=== PATIENT | female | born 1980 | race African-American/Black ===

== ENCOUNTER 2018-03-18 17:02 | Emergency (ER) | payer SELFPAY ==
[~2018-03-18] VITALS: Ht 170.2 cm; Wt 106.6 kg
[2018-03-18] MEDS ORDERED: IBUPROFEN 800 MG (MOTRIN) TAB PO ONE (17:15)
--- NOTE | 2018-03-18 17:18 | ED Fall/Injury ---
General Chief Complaint: Trauma-Non Activation Stated Complaint: FALL Source: patient, EMS Exam Limitations: no limitations History of Present Illness Date Seen by Provider: Mar 18, 2018 Time Seen by Provider: 17:04 Initial Comments Patient presents to ER by EMS with chief complaint that just prior to arrival she was carrying a broken TV set out of the house and she stepped on the cord and tripped and fell down on her left arm and is now having a lot of pain in her left shoulder and difficulty moving it. EMS reports they did not give her anything and she is not had anything for her pain yet. She has good range of motion of her wrist and elbow but not her shoulder. No previous injury to her shoulder. 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 She does not follow with a primary care doctor. Allergies and Home Medications Allergies Coded Allergies: Penicillins (Verified Allergy, Unknown, lip swelling, 03/18/18) Patient Home Medication List Home Medication List Reviewed: Yes Review of Systems Constitutional: No chills, No diaphoresis Eyes: Denies Blindness, Denies Blurred Vision Ears, Nose, Mouth, Throat: denies ear pain, denies ear discharge Respiratory: No cough, No short of breath Cardiovascular: No chest pain, No edema Gastrointestinal: No abdominal pain, No constipation, No diarrhea Past Uyzujdb-Mhzruj-Qswyke Hx Patient Social History Alcohol Use: Denies Use Recreational Drug Use: No Smoking Status: Never a Smoker Physical Exam Vital Signs Vital Signs - First Documented 03/18/18 17:02 Temp 98.7 Pulse 107 Resp 20 B/P (MAP) 148/110 (123) Pulse Ox 100 O2 Delivery Room Air Capillary Refill : Height, Weight, BMI Height: '" Weight: lbs. oz. kg; BMI Method: General Appearance: WD/WN, no apparent distress HEENT: PERRL/EOMI, pharynx normal Neck: non-tender, normal inspection Cardiovascular: normal peripheral pulses, regular rate, rhythm Respiratory: chest non-tender, lungs clear, normal breath sounds, no respiratory distress, no accessory muscle use Peripheral Pulses: 2+ Radial Pulses (R), 2+ Radial Pulses (L) Gastrointestinal: normal bowel sounds, non tender, soft Progress/Results/Core Measures Results/Orders My Orders Orders - RONALD NEWTON Shoulder, Left, 3 Views (03/18/18 17:07) Ibuprofen Tablet (Motrin Tablet) (03/18/18 17:15) Medications Given in ED Current Medications Medications Dose Ordered Sig/Mir Route Start Time Stop Time Status Last Admin Dose Admin Ibuprofen 800 mg ONCE ONCE PO 03/18/18 17:15 03/18/18 17:16 DC 03/18/18 17:23 800 MG Vital Signs/I&O 03/18/18 17:02 Temp 98.7 Pulse 107 Resp 20 B/P (MAP) 148/110 (123) Pulse Ox 100 O2 Delivery Room Air Progress Progress Note : Time: 17:24 Progress Note Offered her something for pain and she has accepted ibuprofen. Return to get some x-rays of her shoulder and evaluate her clavicle. Diagnostic Imaging Diagonstic Imaging: Xray Plain Films/CT/US/NM/MRI: other (left shoulder) Comments NAME: BERTO MCFARLAND MED REC#: [id number] PT STATUS: REG ER : 1980 PHYSICIAN: RONALD NEWTON MD ADMIT DATE: 03/18/18/ER Draft Date of Exam:03/18/18 SHOULDER, LEFT, 3 VIEWS INDICATION: Left shoulder pain after injury. COMPARISON: None available. TECHNIQUE: Three views of left shoulder. FINDINGS: No acute fracture or traumatic malalignment. Subacromial space is well-maintained. An os acromiale accounts for the irregularity of the distal acromion. IMPRESSION: 1. No acute fracture or traumatic malalignment of the left shoulder. 2. Normal variant os acromiale likely accounts for irregularity of the distal acromion. Dictated on workstation # [id number] Dict: 03/18/18 1745 Trans: 03/18/18 1748 [id number] Interpreted by: DESIRAE MORFIN MD Electronically signed by: Reviewed: Reviewed by Me Departure Impression Primary Impression: Sprain and strain of unspecified site of shoulder and upper arm Additional Impression: Fall Qualified Codes: W19.XXXA - Unspecified fall, initial encounter Disposition: 01 HOME, SELF-CARE Condition: Stable Departure-Patient Inst. Decision time for Depature: 17:53 Referrals: UNKNOWN (PCP) Primary Care Physician Patient Instructions: How to Use a Shoulder Sling Add. Discharge Instructions: Wear the sling as needed for the next 7 days. Take it out of the sling several times a day and do some range of motion exercises using your other hand. Use Tylenol 1000 mg as well as ibuprofen 800 mg every 8 hours as needed for pain. For the first 3 days apply ice for 20 minutes every 4 hours. You can also use creams such as icy hot or Biofreeze and heat. If it's not improving in 2-4 weeks she can follow-up with your primary doctor for reevaluation. All discharge instructions reviewed with patient and/or family. Voiced understanding. Work/School Note: Work Release Form Date Seen in the Emergency Department: Mar 18, 2018 Return to Work: Mar 19, 2018 Restrictions: No Restrictions Other Restrictions Listed Below: Sling for 7 days. RONALD NEWTON Mar 18, 2018 17:18
--- OUTSIDE RECORDS SUMMARY | 2018-03-18 17:25 | XMS REPORT ---
Author Author KRISHNAARSALAN VALENTINE Organization [facility] Address [address] [place] [address] Care Team Providers Care Reroller Hand Name Role Phone ARSALAN KELLER Unavailable PROBLEMS Type Condition ICD9-CM Code [id number] Code Onset Dates Condition Status SNOMED Code Problem Cannabis dependence F12.20 Active 34156455 Problem Methamphetamine use disorder, moderate, 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 Active 329076730 Problem Moderate persistent asthma with acute exacerbation J45.41 Active 766465488641321 Problem Mild intermittent asthma without complication J45.20 Active 931973969 ALLERGIES No Information ENCOUNTERS Encounter Location Date Diagnosis [facility] [address] [address] Sep, [facility] [address] [place] [address] Sep, Methamphetamine use disorder, moderate, 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 and Cannabis dependence F12.20 [facility] [address] [address] Sep, Moderate persistent asthma with acute exacerbation J45.41 and BMI 40.0-44.9, adult Z68.41 [facility] [id number] [place] [phone] Aug, [facility] [id number] [place] [address] [id number] Mar, Moderate persistent asthma with acute exacerbation J45.41 ; Cough R05 and Fever and chills R50.9 [facility] [id number] [place] [address] [id number] Feb, Moderate persistent asthma with acute exacerbation J45.41 [facility] [id number] [place] [address] [id number] Jan, Cough R05 ; Fever, unspecified fever cause R50.9 ; Tobacco abuse Z72.0 ; Tobacco abuse counseling Z71.6 and Acute diffuse otitis externa of left ear H60.[address] [id number] December, [address] [id number] December, Moderate persistent asthma with acute exacerbation J45.41 ; Cough R05 ; Tobacco abuse Z72.0 and Tobacco abuse counseling Z71.[address] [id number] Oct, Atypical pneumonia J18.9 ; Viral gastroenteritis A08.4 ; Diarrhea of presumed infectious origin A09 ; Dark stools R19.5 and Bronchitis J40 [address] [id number] Sep, Atypical pneumonia J18.9 ; Viral gastroenteritis A08.4 ; Diarrhea of presumed infectious origin A09 and Dark stools R19.[address] [id number] Sep, Atypical pneumonia J18.9 and Vomiting, unspecified R11.10 [facility] [address] [place] [address] [id number] [place] [id number] Sep, Bronchitis J40 [address] [id number] Sep, Bronchitis J40 ; Community acquired pneumonia J18.9 and Left flank tenderness R10.[id number] [place] [address] [id number] Sep, Bronchitis J40 and Community acquired pneumonia J18.[address] [id number] Sep, Acute diffuse otitis externa of left ear H60.312 ; Bronchitis J40 and Community acquired pneumonia J18.9 [facility] [address] [facility] [id number] [place] [address] [id number] Sep, Bronchitis J40 [address] [id number] 13 Sep, 2016 Bronchitis J40 [facility] [address] [facility] [id number] [place] [id number] Sep, 2016 Upper respiratory tract infection, unspecified type J06.9 and Cough R05 [facility] [address] [facility] [id number] [place] [id number] Jul, Mild intermittent asthma without complication J45.20 ; Encounter for immunization Z23 ; Bilateral carpal tunnel syndrome G56.03 ; Medial epicondylitis of left elbow M77.02 and Medial epicondylitis, right elbow M77.01 IMMUNIZATIONS No Known Immunizations SOCIAL HISTORY Never Assessed REASON FOR VISIT Assessment PLAN OF CARE Activity Details Follow Up 1 Week Reason:SUBABFU VITAL SIGNS MEDICATIONS Unknown Medications RESULTS No Results PROCEDURES Procedure Date Ordered Result Body Site ALCOHOL AND/OR DRUG ASSESSMENT Sep 12, 2017 INSTRUCTIONS MEDICATIONS ADMINISTERED No Known Medications MEDICAL (GENERAL) HISTORY Type Description Date Medical History asthma Surgical History cholecystectomy Surgical History hiatal hernia repair Surgical History umbilical hernia repair Hospitalization History Surgery(s) only Hospitalization History pneumonia
--- OUTSIDE RECORDS SUMMARY | 2018-03-18 17:25 | XMS REPORT ---
Author Author MISSY VALVERDE Organization [facility] Address [address] [place] [address] Care Team Providers Care Prepress Technician Name Role Phone MISSY VALVERDE Unavailable PROBLEMS Type Condition ICD9-CM Code [id number] Code Onset Dates Condition Status SNOMED Code Problem Cannabis dependence F12.20 Active 01667090 Problem Methamphetamine use disorder, moderate, 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 Active 371164031 Problem Moderate persistent asthma with acute exacerbation J45.41 Active 239534206438869 Problem Mild intermittent asthma without complication J45.20 Active 120376261 ALLERGIES No Information ENCOUNTERS Encounter Location Date Diagnosis [facility] [address] [address] Sep, [facility] [address] [place] [address] Sep, Methamphetamine use disorder, moderate, 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 and Cannabis dependence F12.20 [facility] [address] [address] Sep, Moderate persistent asthma with acute exacerbation J45.41 and BMI 40.0-44.9, adult Z68.41 [facility] [address] [address] Aug, [address] [id number] Mar, Moderate persistent asthma with acute exacerbation J45.41 ; Cough R05 and Fever and chills R50.9 [facility] [address] [id number] Feb, Moderate persistent asthma with acute exacerbation J45.41 [facility] [id number] [place] [address] [id number] Jan, Cough R05 ; Fever, unspecified fever cause R50.9 ; Tobacco abuse Z72.0 ; Tobacco abuse counseling Z71.6 and Acute diffuse otitis externa of left ear H60.[address] [id number] December, [address] [id number] December, Moderate persistent asthma with acute exacerbation J45.41 ; Cough R05 ; Tobacco abuse Z72.0 and Tobacco abuse counseling Z71.[address] [id number] Oct, Atypical pneumonia J18.9 ; Viral gastroenteritis A08.4 ; Diarrhea of presumed infectious origin A09 ; Dark stools R19.5 and Bronchitis J40 [address] [id number] Sep, Atypical pneumonia J18.9 ; Viral gastroenteritis A08.4 ; Diarrhea of presumed infectious origin A09 and Dark stools R19.[address] [id number] Sep, Atypical pneumonia J18.9 and Vomiting, unspecified R11.10 [facility] [address] [place] [address] [id number] [place] [address] [id number] Sep, Bronchitis J40 [address] [id number] Sep, Bronchitis J40 ; Community acquired pneumonia J18.9 and Left flank tenderness R10.[id number] [place] [address] [id number] Sep, Bronchitis J40 and Community acquired pneumonia J18.9 [address] [id number] [place] [address] [id number] Sep, Acute diffuse otitis externa of left ear H60.312 ; Bronchitis J40 and Community acquired pneumonia J18.9 [facility] [address] [facility] [id number] [place] [address] [id number] Sep, Bronchitis J40 [address] [id number] Sep, Bronchitis J40 [facility] [address] [facility] [id number] [place] [id number] Sep, Upper respiratory tract infection, unspecified type J06.9 and Cough R05 [facility] [address] [facility] [id number] [place] [id number] Jul, Mild intermittent asthma without complication J45.20 ; Encounter for immunization Z23 ; Bilateral carpal tunnel syndrome G56.03 ; Medial epicondylitis of left elbow M77.02 and Medial epicondylitis, right elbow M77.01 IMMUNIZATIONS No Known Immunizations SOCIAL HISTORY Never Assessed REASON FOR VISIT ATS-Brief PLAN OF CARE VITAL SIGNS MEDICATIONS Unknown Medications RESULTS No Results PROCEDURES Procedure Date Ordered Result Body Site Alcohol and/or drug services Sep 02, 2017 INSTRUCTIONS MEDICATIONS ADMINISTERED No Known Medications MEDICAL (GENERAL) HISTORY Type Description Date Medical History asthma Surgical History cholecystectomy Surgical History hiatal hernia repair Surgical History umbilical hernia repair Hospitalization History Surgery(s) only Hospitalization History pneumonia
--- OUTSIDE RECORDS SUMMARY | 2018-03-18 17:25 | XMS REPORT ---
Author Author LILLIE GAYTAN Organization [facility] Address [address] [place] [address] Care Team Providers Care Informatica Architect Name Role Phone LILLIE GAYTAN Unavailable PROBLEMS Type Condition ICD9-CM Code OBM67-LU Code Onset Dates Condition Status SNOMED Code Problem Moderate persistent asthma with acute exacerbation J45.41 Active 069474032821049 Problem Mild intermittent asthma without complication J45.20 Active 803844319 ALLERGIES No Information SOCIAL HISTORY Never Assessed PLAN OF CARE VITAL SIGNS MEDICATIONS No Known Medications RESULTS No Results PROCEDURES No Known procedures IMMUNIZATIONS No Known Immunizations MEDICAL (GENERAL) HISTORY Type Description Date Medical History asthma Surgical History cholecystectomy Surgical History hiatal hernia repair Surgical History umbilical hernia repair Hospitalization History Surgery(s) only Hospitalization History pneumonia
--- OUTSIDE RECORDS SUMMARY | 2018-03-18 17:25 | XMS REPORT ---
Author Author LOBO KIM [facility] Address [address] [place] [address] Care Team Providers Care Sports Marketer Name Role Phone LOBO KIM Unavailable PROBLEMS Type Condition ICD9-CM Code JAN20-BI Code Onset Dates Condition Status SNOMED Code Problem Moderate persistent asthma with acute exacerbation J45.41 Active 589188141938952 Problem Mild intermittent asthma without complication J45.20 Active 107235902 ALLERGIES No Information SOCIAL HISTORY Never Assessed PLAN OF CARE VITAL SIGNS MEDICATIONS No Known Medications RESULTS Name Result Date Reference Range Xray : Chest (IN HOUSE) 2016-09-16 PROCEDURES Procedure Date Ordered Result Body Site CHEST X-RAY Sep 16, 2016 IMMUNIZATIONS No Known Immunizations MEDICAL (GENERAL) HISTORY Type Description Date Medical History asthma Surgical History cholecystectomy Surgical History hiatal hernia repair Surgical History umbilical hernia repair Hospitalization History Surgery(s) only Hospitalization History pneumonia
--- OUTSIDE RECORDS SUMMARY | 2018-03-18 17:25 | XMS REPORT ---
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 Active 675436058 Problem Moderate persistent asthma with acute exacerbation J45.41 Active 299817372780404 Problem Mild intermittent asthma without complication J45.20 Active 075486738 ALLERGIES Substance Reaction Event Type Date Status Penicillin V Potassium anaphylaxis Drug Allergy Mar, Active ENCOUNTERS Encounter Location Date Diagnosis [facility] [address] [address] Sep, [facility] [address] [place] [address] Sep, Methamphetamine use disorder, moderate, 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 and Cannabis dependence F12.20 [facility] [id number] [place] [address] Sep, Moderate persistent asthma with acute exacerbation J45.41 and BMI 40.0-44.9, adult Z68.41 [facility] [id number] [place] [address] Aug, [facility] [id number] [place] [id number] Mar, Moderate persistent asthma with acute exacerbation J45.41 ; Cough R05 and Fever and chills R50.9 [facility] [id number] [place] [address] [id number] Feb, Moderate persistent asthma with acute exacerbation J45.41 [facility] [address] [id number] Jan, Cough R05 ; Fever, unspecified fever cause R50.9 ; Tobacco abuse Z72.0 ; Tobacco abuse counseling Z71.6 and Acute diffuse otitis externa of left ear H60.312 [id number] [place] [id number] December, [address] [id number] December, Moderate persistent asthma with acute exacerbation J45.41 ; Cough R05 ; Tobacco abuse Z72.0 and Tobacco abuse counseling Z71.[address] [id number] Oct, Atypical pneumonia J18.9 ; Viral gastroenteritis A08.4 ; Diarrhea of presumed infectious origin A09 ; Dark stools R19.5 and Bronchitis J40 [address] [id number] Sep, Atypical pneumonia J18.9 ; Viral gastroenteritis A08.4 ; Diarrhea of presumed infectious origin A09 and Dark stools R19.5 [id number] [place] [address] [id number] Sep, Atypical pneumonia J18.9 and Vomiting, unspecified R11.[address] [id number] [id number] Sep, Bronchitis J40 [id number] [place] [address] [id number] Sep, Bronchitis J40 ; Community acquired pneumonia J18.9 and Left flank tenderness R10.8[id number] [place] [address] [id number] Sep, Bronchitis J40 and Community acquired pneumonia J18.9 [place] [id number] [place] [address] [id number] Sep, Acute diffuse otitis externa of left ear H60.312 ; Bronchitis J40 and Community acquired pneumonia J18.[id number] [place] [id number] Sep, Bronchitis J40 [facility] [address] [facility] [id number] [place] [id number] Sep, Bronchitis J40 [facility] [address] [facility] [id number] [id number] Sep, Upper respiratory tract infection, unspecified type J06.9 and Cough R05 [facility] [address] [facility] [id number] [id number] Jul, Mild intermittent asthma without complication J45.20 ; Encounter for immunization Z23 ; Bilateral carpal tunnel syndrome G56.03 ; Medial epicondylitis of left elbow M77.02 and Medial epicondylitis, right elbow M77.01 IMMUNIZATIONS Vaccine Route Administration Date Status ROCEPHIN 1 GM (IM) IM Intramuscular Mar 28, 2017 Administered SOLUMEDROL (UP TO 125 MG) IM Intramuscular Mar 28, 2017 Administered SOCIAL HISTORY Never Assessed REASON FOR VISIT has bad cough again, has not had CXR or PFT done. States she has been out of town and in group home. [facility] PLAN OF CARE Activity Details Follow Up if not improving in clinic or with PCP Reason: VITAL SIGNS Height 67 in 2017-03-28 Temperature 97.2 degrees Fahrenheit 2017-03-28 Heart Rate 112 bpm 2017-03-28 Respiratory Rate 20 2017-03-28 Blood pressure systolic 122 mmHg 2017-03-28 Blood pressure diastolic 80 mmHg 2017-03-28 MEDICATIONS Medication Instructions Dosage Frequency Start Date End Date Duration Status Advair Diskus 250-50 MCG/DOSE Inhalation Twice a day 1 puff 12h Active Singulair 10 mg Orally Once a day 1 tablet in the evening 24h Active Albuterol Sulfate HFA 108 (90 Base) MCG/ACT Inhalation every 4 hrs 2 puffs as needed 4h Active Symbicort 160-4.5 MCG/ACT Inhalation Twice a day 2 puffs 12h Mar, Active Spiriva Respimat 2.5 MCG/ACT Inhalation Once a day 2 puffs 24h Mar, Active Azithromycin 250 MG Orally Once a day 2 tablets on the first day, then 1 tablet daily for 4 days 24h Mar, Mar, 5 day(s) Active Cheratussin AC 100-10 MG/5ML Orally every 4-6 hrs as needed for cough 10 ml 07 days Not-Taking PredniSONE 10 mg Orally Once a day Day 1- take 6 tablets, Day2- 5 tablets, Day3- 4 tablets, Day4- 3 tablets, Day5- 2 tablets, Day6- 1 tablet 24h Mar, Mar, 6 days Active Promethazine HCl 25 MG Orally every 12 hrs for nausea 1 tablet as needed Not-Taking Diclofenac Sodium 50 mg Orally Three times a day 1 tablet with food or milk 8h Jul, Not-Taking Tessalon 100 mg Orally Three times a day 1 capsule 8h Mar,Apr 30 day(s) Active Albuterol Sulfate (2.5 MG/3ML) 0.083% Inhalation every 4 hours prn 3 ml Active RESULTS No Results PROCEDURES Procedure Date Ordered Result Body Site SOLUMEDROL (UP TO 125 MG) Mar 28, 2017 THER/PROPH/DIAG INJ, SC/IM Mar 28, 2017 ROCEPHIN 1 GM (IM) Mar 28, 2017 INSTRUCTIONS MEDICATIONS ADMINISTERED No Known Medications MEDICAL (GENERAL) HISTORY Type Description Date Medical History asthma Surgical History cholecystectomy Surgical History hiatal hernia repair Surgical History umbilical hernia repair Hospitalization History Surgery(s) only Hospitalization History pneumonia
--- OUTSIDE RECORDS SUMMARY | 2018-03-18 17:25 | XMS REPORT ---
Author Author LILLIE GAYTAN Organization [facility] Address [address] [place] [address] Care Team Providers Care Blow Pit Helper Name Role Phone LILLIE GAYTAN Unavailable PROBLEMS Type Condition ICD9-CM Code YQO28-PT Code Onset Dates Condition Status SNOMED Code Problem Moderate persistent asthma with acute exacerbation J45.41 Active 071274627945056 Problem Mild intermittent asthma without complication J45.20 Active 967701344 ALLERGIES Substance Reaction Event Type Date Status Penicillin V Potassium anaphylaxis Drug Allergy Sep, Active SOCIAL HISTORY Never Assessed PLAN OF CARE Activity Details Follow Up friday Reason:bronchitis VITAL SIGNS Height 67 in 2016-09-23 Weight 264.8 lbs 2016-09-23 Temperature 98.5 degrees Fahrenheit 2016-09-23 Heart Rate 96 bpm 2016-09-23 Respiratory Rate 22 2016-09-23 Oximetry 98 % 2016-09-23 BMI 41.47 kg/m2 2016-09-23 Blood pressure systolic 130 mmHg 2016-09-23 Blood pressure diastolic 96 mmHg 2016-09-23 MEDICATIONS Medication Instructions Dosage Frequency Start Date End Date Duration Status Albuterol Sulfate HFA 108 (90 Base) MCG/ACT Inhalation every 4 hrs 2 puffs as needed 4h Active Advair Diskus 250-50 MCG/DOSE Inhalation Twice a day 1 puff 12h Active Singulair 10 mg Orally Once a day 1 tablet in the evening 24h Active Cortisporin 3.5-07879-6 Otic Three times a day 4 drops into left ear 8h Sep, 10 days Active Albuterol Sulfate (2.5 MG/3ML) 0.083% Inhalation every 4 hours prn 3 ml 0 days Active PredniSONE 5 MG (21) Orally Once a day Take 6 pills day one at the same time reduce by one tablet daily the as directed 24h Sep, Active Cheratussin AC 100-10 MG/5ML Orally every 4-6 hrs as needed for cough 10 ml 27 Sep, 2016 07 days Active Levaquin 750 MG Orally Once a day 1 tablet 24h 05 days Active Diclofenac Sodium 50 mg Orally Three times a day 1 tablet with food or milk 8h Jul, Active RESULTS No Results PROCEDURES Procedure Date Ordered Result Body Site MEASURE BLOOD OXYGEN LEVEL Sep 23, 2016 SOLUMEDROL (UP TO 125 MG) Sep 23, 2016 THER/PROPH/DIAG INJ, SC/IM Sep 23, 2016 IMMUNIZATIONS Vaccine Route Administration Date Status SOLUMEDROL (UP TO 125 MG) IM Intramuscular Sep 23, 2016 Administered MEDICAL (GENERAL) HISTORY Type Description Date Medical History asthma Surgical History cholecystectomy Surgical History hiatal hernia repair Surgical History umbilical hernia repair Hospitalization History Surgery(s) only Hospitalization History pneumonia
--- OUTSIDE RECORDS SUMMARY | 2018-03-18 17:25 | XMS REPORT ---
Author Author MEE RADFORD Organization [facility] Address [address] [place] [address] Care Team Providers Care Hadoop Administrator Name Role Phone MALINA MEE Unavailable PROBLEMS Type Condition ICD9-CM Code RWL94-AE Code Onset Dates Condition Status SNOMED Code Problem Cannabis dependence F12.20 Active 37667414 Problem Methamphetamine use disorder, moderate, 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 Active 343063559 Problem Moderate persistent asthma with acute exacerbation J45.41 Active 725495168840439 Problem Mild intermittent asthma without complication J45.20 Active 130856534 ALLERGIES Substance Reaction Event Type Date Status Penicillin V Potassium anaphylaxis Drug Allergy Sep, Active ENCOUNTERS Encounter Location Date Diagnosis [facility] [id number] [place] [phone] Sep, [facility] [address] [place] [address] Sep, Methamphetamine use disorder, moderate, 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 and Cannabis dependence F12.20 [facility] [id number] [place] [address] Sep, Moderate persistent asthma with acute exacerbation J45.41 and BMI 40.0-44.9, adult Z68.41 [facility] [id number] [place] [phone] Aug, [facility] [id number] [place] [id number] Mar, Moderate persistent asthma with acute exacerbation J45.41 ; Cough R05 and Fever and chills R50.9 [facility] [id number] [place] [id number] Feb, Moderate persistent asthma with acute exacerbation J45.41 [facility] [id number] [place] [address] [id number] Jan, Cough R05 ; Fever, unspecified fever cause R50.9 ; Tobacco abuse Z72.0 ; Tobacco abuse counseling Z71.6 and Acute diffuse otitis externa of left ear H60.312 [id number] [place] [id number] December, [address] [id number] December, Moderate persistent asthma with acute exacerbation J45.41 ; Cough R05 ; Tobacco abuse Z72.0 and Tobacco abuse counseling Z71.6 [id number] [place] [address] [id number] Oct, Atypical pneumonia J18.9 ; Viral gastroenteritis A08.4 ; Diarrhea of presumed infectious origin A09 ; Dark stools R19.5 and Bronchitis J40 [id number] [place] [address] [id number] Sep, Atypical pneumonia J18.9 ; Viral gastroenteritis A08.4 ; Diarrhea of presumed infectious origin A09 and Dark stools R19.5 [id number] [place] [address] [id number] Sep, Atypical pneumonia J18.9 and Vomiting, unspecified R11.[id number] [place] [address] [id number] Sep, Bronchitis J40 [id number] [place] [address] [id number] Sep, Bronchitis J40 ; Community acquired pneumonia J18.9 and Left flank tenderness R10.819 [id number] [place] [address] [id number] Sep, Bronchitis J40 and Community acquired pneumonia J18.[address] [id number] Sep, Acute diffuse otitis externa of left ear H60.312 ; Bronchitis J40 and Community acquired pneumonia J18.[id number] [place] [address] [id number] Sep, Bronchitis J40 [facility] [address] [facility] [id number] [place] [id number] 13 Sep, 2016 Bronchitis J40 [facility] [address] [facility] [id number] [id number] Sep, Upper respiratory tract infection, unspecified type J06.9 and Cough R05 [facility] [address] [facility] [id number] [id number] Jul, Mild intermittent asthma without complication J45.20 ; Encounter for immunization Z23 ; Bilateral carpal tunnel syndrome G56.03 ; Medial epicondylitis of left elbow M77.02 and Medial epicondylitis, right elbow M77.01 IMMUNIZATIONS Vaccine Route Administration Date Status DEXAMETHASONE 4MG/ML (PER 1 MG) IM Intramuscular Sep 04, 2017 Administered DEPO MEDROL 40 MG/ML IM Intramuscular Sep 04, 2017 Administered SOCIAL HISTORY Never Assessed REASON FOR VISIT Cough, lungs hurt, sore throat started a few days ago JStrasserRN PLAN OF CARE Activity Details Follow Up prn Reason: VITAL SIGNS Height 67 in 2017-09-04 Weight 260.4 lbs 2017-09-04 Temperature 97.9 degrees Fahrenheit 2017-09-04 Heart Rate 100 bpm 2017-09-04 Respiratory Rate 22 2017-09-04 Oximetry 97 % 2017-09-04 BMI 40.78 kg/m2 2017-09-04 Blood pressure systolic 124 mmHg 2017-09-04 Blood pressure diastolic 80 mmHg 2017-09-04 MEDICATIONS Medication Instructions Dosage Frequency Start Date End Date Duration Status CompAir Nebulizer - as directed Sep, Active Albuterol Sulfate (2.5 MG/3ML) 0.083% Inhalation every 6 hrs 3 ml as needed 6h Sep, 5 days Active Singulair 10 mg Orally Once a day 1 tablet in the evening 24h Active Symbicort 160-4.5 MCG/ACT Inhalation Twice a day 2 puffs 12h Mar, Active Advair Diskus 250-50 MCG/DOSE Inhalation Twice a day 1 puff 12h Active Albuterol Sulfate HFA 108 (90 Base) MCG/ACT Inhalation every 4 hrs 2 puffs as needed 4h Active Promethazine HCl 25 MG Orally every 12 hrs for nausea 1 tablet as needed Not-Taking Cheratussin AC 100-10 MG/5ML Orally every 4-6 hrs as needed for cough 10 ml 07 days Not-Taking Albuterol Sulfate (2.5 MG/3ML) 0.083% Inhalation every 4 hours prn 3 ml Active Diclofenac Sodium 50 mg Orally Three times a day 1 tablet with food or milk 8h Jul, Not-Taking Spiriva Respimat 2.5 MCG/ACT Inhalation Once a day 2 puffs 24h Mar, Active RESULTS No Results PROCEDURES Procedure Date Ordered Result Body Site MEASURE BLOOD OXYGEN LEVEL Sep 04, 2017 THER/PROPH/DIAG INJ, SC/IM Sep 04, 2017 DEPO MEDROL 40 MG/ML Sep 04, 2017 DEXAMETHASONE 4MG/ML (PER 1 MG) Sep 04, 2017 INSTRUCTIONS MEDICATIONS ADMINISTERED No Known Medications MEDICAL (GENERAL) HISTORY Type Description Date Medical History asthma Surgical History cholecystectomy Surgical History hiatal hernia repair Surgical History umbilical hernia repair Hospitalization History Surgery(s) only Hospitalization History pneumonia
--- OUTSIDE RECORDS SUMMARY | 2018-03-18 17:25 | XMS REPORT ---
Author Author MISSY VALVERDE Organization [facility] Address [address] [place] [address] Care Team Providers Care Clinical Lab Clerk Name Role Phone MISSY VALVERDE Unavailable PROBLEMS Type Condition ICD9-CM Code UVD17-RH Code Onset Dates Condition Status SNOMED Code Problem Cannabis dependence F12.20 Active 40388806 Problem Methamphetamine use disorder, moderate, 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 Active 912714694 Problem Moderate persistent asthma with acute exacerbation J45.41 Active 818430549066468 Problem Mild intermittent asthma without complication J45.20 Active 212744308 ALLERGIES No Information ENCOUNTERS Encounter Location Date Diagnosis [facility] [address] [phone] Sep, [facility] [address] [place] [address] Sep, Methamphetamine use disorder, moderate, 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 and Cannabis dependence F12.20 [facility] [address] [phone] Sep, Moderate persistent asthma with acute exacerbation J45.41 and BMI 40.0-44.9, adult Z68.41 [facility] [address] [phone] Aug, [address] [id number] Mar, Moderate persistent asthma with acute exacerbation J45.41 ; Cough R05 and Fever and chills R50.9 [facility] [address] [id number] Feb, Moderate persistent asthma with acute exacerbation J45.41 [facility] [id number] [place] [address] [id number] Jan, Cough R05 ; Fever, unspecified fever cause R50.9 ; Tobacco abuse Z72.0 ; Tobacco abuse counseling Z71.6 and Acute diffuse otitis externa of left ear H60.[address] [id number] December, [address] [id number] December, Moderate persistent asthma with acute exacerbation J45.41 ; Cough R05 ; Tobacco abuse Z72.0 and Tobacco abuse counseling Z71.[address] [id number] Oct, Atypical pneumonia J18.9 ; Viral gastroenteritis A08.4 ; Diarrhea of presumed infectious origin A09 ; Dark stools R19.5 and Bronchitis J40 [address] [id number] Sep, Atypical pneumonia J18.9 ; Viral gastroenteritis A08.4 ; Diarrhea of presumed infectious origin A09 and Dark stools R19.[address] [id number] Sep, Atypical pneumonia J18.9 and Vomiting, unspecified R11.10 [facility] [address] [place] [address] [id number] [place] [address] [id number] Sep, Bronchitis J40 [address] [id number] Sep, Bronchitis J40 ; Community acquired pneumonia J18.9 and Left flank tenderness R10.8[id number] [place] [address] [id number] Sep, Bronchitis J40 and Community acquired pneumonia J18.9 [id number] [place] [address] [id number] Sep, Acute diffuse otitis externa of left ear H60.312 ; Bronchitis J40 and Community acquired pneumonia J18.9 [facility] [address] [facility] [id number] [place] [address] [id number] Sep, Bronchitis J40 [address] [id number] 13 Sep, 2016 Bronchitis J40 [facility] [address] [facility] [id number] [place] [id number] 10 Sep, 2016 Upper respiratory tract infection, unspecified type J06.9 and Cough R05 [facility] [address] [facility] [id number] [place] [id number] Jul, Mild intermittent asthma without complication J45.20 ; Encounter for immunization Z23 ; Bilateral carpal tunnel syndrome G56.03 ; Medial epicondylitis of left elbow M77.02 and Medial epicondylitis, right elbow M77.01 IMMUNIZATIONS No Known Immunizations SOCIAL HISTORY Never Assessed REASON FOR VISIT SOCWK Intake PLAN OF CARE VITAL SIGNS MEDICATIONS Unknown Medications RESULTS No Results PROCEDURES Procedure Date Ordered Result Body Site Alcohol and/or drug services Sep 12, 2017 INSTRUCTIONS MEDICATIONS ADMINISTERED No Known Medications MEDICAL (GENERAL) HISTORY Type Description Date Medical History asthma Surgical History cholecystectomy Surgical History hiatal hernia repair Surgical History umbilical hernia repair Hospitalization History Surgery(s) only Hospitalization History pneumonia
--- OUTSIDE RECORDS SUMMARY | 2018-03-18 17:26 | XMS REPORT ---
Author Author LILLIE GAYTAN Organization [facility] Address [address] [place] [address] Care Team Providers Care Pastry Wrapper Name Role Phone LILLIE GAYTAN Unavailable PROBLEMS Type Condition ICD9-CM Code WDW07-NQ Code Onset Dates Condition Status SNOMED Code Problem Moderate persistent asthma with acute exacerbation J45.41 Active 385758265245736 Problem Mild intermittent asthma without complication J45.20 Active 915444871 ALLERGIES No Information SOCIAL HISTORY Never Assessed PLAN OF CARE VITAL SIGNS MEDICATIONS No Known Medications RESULTS Name Result Date Reference Range Xray : Chest (IN HOUSE) 2016-09-26 PROCEDURES Procedure Date Ordered Result Body Site CHEST X-RAY Sep 26, 2016 IMMUNIZATIONS No Known Immunizations MEDICAL (GENERAL) HISTORY Type Description Date Medical History asthma Surgical History cholecystectomy Surgical History hiatal hernia repair Surgical History umbilical hernia repair Hospitalization History Surgery(s) only Hospitalization History pneumonia
--- OUTSIDE RECORDS SUMMARY | 2018-03-18 17:26 | XMS REPORT ---
Author Author LILLIE GAYTAN Organization [facility] Address [address] [place] [address] Care Team Providers Care Public Service Administrator Name Role Phone LILLIE GAYTAN Unavailable PROBLEMS Type Condition ICD9-CM Code HEO85-LA Code Onset Dates Condition Status SNOMED Code Problem Moderate persistent asthma with acute exacerbation J45.41 Active 896228876714509 Problem Mild intermittent asthma without complication J45.20 Active 328525112 ALLERGIES Substance Reaction Event Type Date Status Penicillin V Potassium anaphylaxis Drug Allergy Sep, Active SOCIAL HISTORY Never Assessed PLAN OF CARE Activity Details Follow Up 2 - 3 Days Reason:Friday CAP VITAL SIGNS Height 67 in 2016-09-19 Weight 255 lbs 2016-09-19 Temperature 99.7 degrees Fahrenheit 2016-09-19 Heart Rate 132 bpm 2016-09-19 Respiratory Rate 20 2016-09-19 Oximetry 97 % 2016-09-19 BMI 39.93 kg/m2 2016-09-19 Blood pressure systolic 112 mmHg 2016-09-19 Blood pressure diastolic 70 mmHg 2016-09-19 MEDICATIONS Medication Instructions Dosage Frequency Start Date End Date Duration Status Cortisporin 3.5-89447-3 Otic Three times a day 4 drops into left ear 8h Sep, 10 days Active Albuterol Sulfate HFA 108 (90 Base) MCG/ACT Inhalation every 4 hrs 2 puffs as needed 4h Active Cheratussin AC 100-10 MG/5ML Orally every 4-6 hrs as needed for cough 10 ml Sep, Sep, 07 days Active Diclofenac Sodium 50 mg Orally Three times a day 1 tablet with food or milk 8h Jul, Active Levaquin 750 MG Orally Once a day 1 tablet 24h Sep, Sep, 05 days Active Albuterol Sulfate (2.5 MG/3ML) 0.083% Inhalation every 4 hours prn 3 ml Sep, 0 days Active Advair Diskus 250-50 MCG/DOSE Inhalation Twice a day 1 puff 12h 12 Jul, 2016 Active Singulair 10 mg Orally Once a day 1 tablet in the evening 24h Jul, Active PredniSONE 5 MG (21) Orally Once a day Take 6 pills day one at the same time reduce by one tablet daily the as directed 24h 10 Sep, 2016 Active RESULTS Name Result Date Reference Range CBC 2016-09-19 WBC 7.2 3.4-10.8 RBC 5.11 3.77-5.28 Hemoglobin 12.2 11.1-15.9 Hematocrit 38.9 34.0-46.6 MCV 76 79-97 MCH 23.9 26.6-33.0 MCHC 31.4 31.5-35.7 RDW 18.6 12.3-15.4 Platelets 484 150-379 Neutrophils 67 Lymphs 22 Monocytes 7 Eos 4 Basos 0 Immature Cells Neutrophils (Absolute) 4.9 1.4-7.0 Lymphs (Absolute) 1.6 0.7-3.1 Monocytes(Absolute) 0.5 0.1-0.9 Eos (Absolute) 0.3 0.0-0.4 Baso (Absolute) 0.0 0.0-0.2 Immature Granulocytes 0 Immature Grans (Abs) 0.0 0.0-0.1 NRBC Hematology Comments: PROCEDURES Procedure Date Ordered Result Body Site NEBULIZER TREATMENT 2016-09-19 N/A MEASURE BLOOD OXYGEN LEVEL Sep 19, 2016 SOLUMEDROL (UP TO 125 MG) Sep 19, 2016 COMPLETE CBC W/AUTO DIFF WBC Sep 19, 2016 NEB/MDI RX INITIAL Sep 19, 2016 THER/PROPH/DIAG INJ, SC/IM Sep 19, 2016 IMMUNIZATIONS Vaccine Route Administration Date Status SOLUMEDROL (UP TO 125 MG) IM Intramuscular Sep 19, 2016 Administered MEDICAL (GENERAL) HISTORY Type Description Date Medical History asthma Surgical History cholecystectomy Surgical History hiatal hernia repair Surgical History umbilical hernia repair Hospitalization History Surgery(s) only Hospitalization History pneumonia
--- OUTSIDE RECORDS SUMMARY | 2018-03-18 17:26 | XMS REPORT ---
Author Author [facility]OBO KIM [facility] Address [address] [place] [address] Care Team Providers Care Physical Trainer Name Role Phone LOBO KIM Unavailable PROBLEMS Type Condition ICD9-CM Code [id number] Code Onset Dates Condition Status SNOMED Code Problem Moderate persistent asthma with acute exacerbation J45.41 Active 620241025866224 Problem Mild intermittent asthma without complication J45.20 Active 191136086 ALLERGIES Substance Reaction Event Type Date Status Penicillin V Potassium anaphylaxis Drug Allergy Sep, Active SOCIAL HISTORY Never Assessed PLAN OF CARE Activity Details Follow Up 2 - 3 Days Reason:bronchitis VITAL SIGNS Height 67 in 2016-09-16 Weight 270 lbs 2016-09-16 Temperature 98.3 degrees Fahrenheit 2016-09-16 Heart Rate 98 bpm 2016-09-16 Respiratory Rate 20 2016-09-16 Oximetry 99 % 2016-09-16 BMI 42.28 kg/m2 2016-09-16 Blood pressure systolic 122 mmHg 2016-09-16 Blood pressure diastolic 70 mmHg 2016-09-16 MEDICATIONS Medication Instructions Dosage Frequency Start Date End Date Duration Status Singulair 10 mg Orally Once a day 1 tablet in the evening 24h Jul, Active Albuterol Sulfate HFA 108 (90 Base) MCG/ACT Inhalation every 4 hrs 2 puffs as needed 4h Active PredniSONE 5 MG (21) Orally Once a day Take 6 pills day one at the same time reduce by one tablet daily the as directed 24h Sep, Active Benzonatate 200 mg Orally Three times a day 1 capsule 8h Sep, Active Zithromax Z-Krishna 250 MG Orally Once a day 2 tablets on the first day, then 1 tablet daily for 4 days 24h Sep, Sep, Active Advair Diskus 250-50 MCG/DOSE Inhalation Twice a day 1 puff 12h Jul, Active RESULTS No Results PROCEDURES Procedure Date Ordered Result Body Site MEASURE BLOOD OXYGEN LEVEL Sep 16, 2016 THER/PROPH/DIAG INJ, SC/IM Sep 16, 2016 DEPO MEDROL 80 MG/ML Sep 16, 2016 IMMUNIZATIONS Vaccine Route Administration Date Status DEPO MEDROL 80 MG/ML IM Intramuscular Sep 16, 2016 Administered MEDICAL (GENERAL) HISTORY Type Description Date Medical History asthma Surgical History cholecystectomy Surgical History hiatal hernia repair Surgical History umbilical hernia repair Hospitalization History Surgery(s) only Hospitalization History pneumonia
--- OUTSIDE RECORDS SUMMARY | 2018-03-18 17:26 | XMS REPORT ---
Author Author LILLIE GAYTAN Organization [facility] Address [address] [place] [address] Care Team Providers Care Associate School Psychologist Name Role Phone LILLIE GAYTAN Unavailable PROBLEMS Type Condition ICD9-CM Code FTZ11-WD Code Onset Dates Condition Status SNOMED Code Problem Moderate persistent asthma with acute exacerbation J45.41 Active 509009163019637 Problem Mild intermittent asthma without complication J45.20 Active 735181575 ALLERGIES Substance Reaction Event Type Date Status Penicillin V Potassium anaphylaxis Drug Allergy Jul, Active SOCIAL HISTORY No smoking Hx information available PLAN OF CARE Activity Details Follow Up 4 Weeks Reason:CHM tendonitis VITAL SIGNS Height 67 in 2016-07-15 Weight 264.2 lbs 2016-07-15 Temperature 98.6 degrees Fahrenheit 2016-07-15 Heart Rate 89 bpm 2016-07-15 Respiratory Rate 20 2016-07-15 BMI 41.38 kg/m2 2016-07-15 Blood pressure systolic 120 mmHg 2016-07-15 Blood pressure diastolic 68 mmHg 2016-07-15 MEDICATIONS Medication Instructions Dosage Frequency Start Date End Date Duration Status Advair Diskus 250-50 MCG/DOSE Inhalation Twice a day 1 puff 12h Jul, Active Diclofenac Sodium 50 mg Orally Three times a day 1 tablet with food or milk 8h Jul, Active Singulair 10 mg Orally Once a day 1 tablet in the evening 24h Jul, Active Albuterol Sulfate HFA 108 (90 Base) MCG/ACT Inhalation every 4 hrs 2 puffs as needed 4h Active RESULTS No Results PROCEDURES Procedure Date Ordered Related Diagnosis Body Site FLUARIX QUAD P-FREE 3 AND UP .50 2015Jul 15, 2016 SINGLE IMMUNIZATION ADMIN Jul 15, 2016 Office Visit, New Pt., Level 4 Jul 15, 2016 IMMUNIZATIONS Vaccine Route Administration Date Status FLUARIX QUAD P-FREE 3 AND UP .50 2015 IM Intramuscular Jul 15, 2016 Administered
--- OUTSIDE RECORDS SUMMARY | 2018-03-18 17:26 | XMS REPORT | Continuity of Care Document ---
Demographics Preferred Language Unknown Marital Status Unknown Mormonism Affiliation Unknown Race Unknown Ethnic Group Unknown Author Author [employer] Organization [facility] Address Unknown Phone Unavailable Allergies There is no data. Medications There is no data. Problems There is no data. Procedures There is no data. Results There is no data. Encounters ACCT No. Visit Date/Time Discharge Status Pt. Type Provider Facility Loc./Unit Complaint [id number] 09/12/2017 14:00:00 09/12/2017 23:59:59 [facility]
--- OUTSIDE RECORDS SUMMARY | 2018-03-18 17:26 | XMS REPORT ---
Author Author BINDU LONGORIA Organization [facility] Address [address] [place] [address] Care Team Providers Care Adolescent Counselor Name Role Phone JIMENEZ BINDU TELLO Unavailable PROBLEMS Type Condition ICD9-CM Code [id number] Code Onset Dates Condition Status SNOMED Code Problem Moderate persistent asthma with acute exacerbation J45.41 Active 564181500562951 Problem Mild intermittent asthma without complication J45.20 Active 242328635 ALLERGIES Substance Reaction Event Type Date Status Penicillin V Potassium anaphylaxis Drug Allergy Sep, Active SOCIAL HISTORY Never Assessed PLAN OF CARE Activity Details Follow Up prn Reason: VITAL SIGNS Height 67 in 2016-09-13 Weight 265.0 lbs 2016-09-13 Temperature 98.7 degrees Fahrenheit 2016-09-13 Heart Rate 95 bpm 2016-09-13 Respiratory Rate 20 2016-09-13 Oximetry 96 % 2016-09-13 BMI 41.50 kg/m2 2016-09-13 Blood pressure systolic 140 mmHg 2016-09-13 Blood pressure diastolic 100 mmHg 2016-09-13 MEDICATIONS Medication Instructions Dosage Frequency Start Date End Date Duration Status Singulair 10 mg Orally Once a day 1 tablet in the evening 24h Jul, Active Albuterol Sulfate HFA 108 (90 Base) MCG/ACT Inhalation every 4 hrs 2 puffs as needed 4h Active Zithromax Z-Krishna 250 MG Orally Once a day 2 tablets on the first day, then 1 tablet daily for 4 days 24h Sep, Sep, 5 day(s) Active PredniSONE 5 MG (21) Orally Once a day Take 6 pills day one at the same time reduce by one tablet daily the as directed 24h Sep, Active Advair Diskus 250-50 MCG/DOSE Inhalation Twice a day 1 puff 12h Jul, Active RESULTS Name Result Date Reference Range INFLUENZA A & B (IN HOUSE) 2016-09-13 INFLUENZA A neg INFLUENZA B neg Control + Lot # [id number] Exp date 12/2018 PROCEDURES Procedure Date Ordered Result Body Site MEASURE BLOOD OXYGEN LEVEL Sep 13, 2016 INFLUENZA ASSAY W/OPTIC Sep 13, 2016 IMMUNIZATIONS No Known Immunizations MEDICAL (GENERAL) HISTORY Type Description Date Medical History asthma Surgical History cholecystectomy Surgical History hiatal hernia repair Surgical History umbilical hernia repair Hospitalization History Surgery(s) only Hospitalization History pneumonia
--- OUTSIDE RECORDS SUMMARY | 2018-03-18 17:26 | XMS REPORT ---
Author Author LILLIE GAYTAN Organization [facility] Address [address] [place] [address] Care Team Providers Care Marketing Community Liaison Name Role Phone LILLIE GAYTAN Unavailable PROBLEMS Type Condition ICD9-CM Code LOW38-XI Code Onset Dates Condition Status SNOMED Code Problem Cannabis dependence F12.20 Active 65317217 Problem Methamphetamine use disorder, moderate, 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 Active 768411581 Problem Moderate persistent asthma with acute exacerbation J45.41 Active 756237794486500 Problem Mild intermittent asthma without complication J45.20 Active 503105721 ALLERGIES No Information ENCOUNTERS Encounter Location Date Diagnosis [facility] [address] [address] Sep, [facility] [address] [place] [address] Sep, Methamphetamine use disorder, moderate, 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 and Cannabis dependence F12.20 [facility] [id number] [place] [address] Sep, Moderate persistent asthma with acute exacerbation J45.41 and BMI 40.0-44.9, adult Z68.41 [facility] [id number] [place] [address] Aug, [facility] [id number] [place] [address] [id number] Mar, Moderate persistent asthma with acute exacerbation J45.41 ; Cough R05 and Fever and chills R50.9 [facility] [id number] [place] [address] [id number] Feb, Moderate persistent asthma with acute exacerbation J45.41 [place] [id number] [place] [address] [id number] Jan, Cough R05 ; Fever, unspecified fever cause R50.9 ; Tobacco abuse Z72.0 ; Tobacco abuse counseling Z71.6 and Acute diffuse otitis externa of left ear H60.312 [place] [id number] [place] [address] [id number] December, [place] [id number] [place] [address] [id number] December, Moderate persistent asthma with acute exacerbation J45.41 ; Cough R05 ; Tobacco abuse Z72.0 and Tobacco abuse counseling Z71.6 [place] [id number] [place] [address] [id number] Oct, Atypical pneumonia J18.9 ; Viral gastroenteritis A08.4 ; Diarrhea of presumed infectious origin A09 ; Dark stools R19.5 and Bronchitis J40 [place] [id number] [place] [address] [id number] Sep, Atypical pneumonia J18.9 ; Viral gastroenteritis A08.4 ; Diarrhea of presumed infectious origin A09 and Dark stools R19.5 [place] [id number] [place] [address] [id number] Sep, Atypical pneumonia J18.9 and Vomiting, unspecified R11.10 [facility] [address] [place] [address] [id number] [place] [address] [id number] Sep, Bronchitis J[address] [id number] Sep, Bronchitis J40 ; Community acquired pneumonia J18.9 and Left flank tenderness R10.819 [address] [id number] [place] [address] [id number] Sep, Bronchitis J40 and Community acquired pneumonia J18.[address] [id number] Sep, Acute diffuse otitis externa of left ear H60.312 ; Bronchitis J40 and Community acquired pneumonia J18.9 [place] [address] [place] [address] [id number] Sep, Bronchitis J40 [place] [address] [id number] [place] [id number] 13 Sep, 2016 Bronchitis J40 [facility] [address] [facility] [id number] [id number] 10 Sep, 2016 Upper respiratory tract infection, unspecified type J06.9 and Cough R05 [facility] [address] [facility] [id number] [place] [phone] Jul, Mild intermittent asthma without complication J45.20 ; Encounter for immunization Z23 ; Bilateral carpal tunnel syndrome G56.03 ; Medial epicondylitis of left elbow M77.02 and Medial epicondylitis, right elbow M77.01 IMMUNIZATIONS No Known Immunizations SOCIAL HISTORY Never Assessed REASON FOR VISIT PLAN OF CARE VITAL SIGNS MEDICATIONS Unknown Medications RESULTS No Results PROCEDURES No Known procedures INSTRUCTIONS MEDICATIONS ADMINISTERED No Known Medications MEDICAL (GENERAL) HISTORY Type Description Date Medical History asthma Surgical History cholecystectomy Surgical History hiatal hernia repair Surgical History umbilical hernia repair Hospitalization History Surgery(s) only Hospitalization History pneumonia
--- NOTE | 2018-03-18 17:49 | Diagnostic Imaging Report ---
INDICATION: Left shoulder pain after injury. COMPARISON: None available. TECHNIQUE: Three views of left shoulder. FINDINGS: No acute fracture or traumatic malalignment. Subacromial space is well-maintained. An os acromiale accounts for the irregularity of the distal acromion. IMPRESSION: 1. No acute fracture or traumatic malalignment of the left shoulder. 2. Normal variant os acromiale likely accounts for irregularity of the distal acromion. Dictated by: Dictated on workstation # [id number]
[2018-03-18 18:12] VITALS: BP 141/110
== END 2018-03-18 18:12 | disposition home or self-care (01) ==
LOC: EDUNIT# 17:02 → ER 17:03
DX: S43.402A Unspecified sprain of left shoulder joint, initial encounter (principal); Z88.0 Allergy status to penicillin; W01.0XXA Fall on same level from slipping, tripping and stumbling without subsequent striking against object, initial encounter; Y92.009 Unspecified place in unspecified non-institutional (private) residence as the place of occurrence of the external cause
CPT/HCPCS: 73030

== ENCOUNTER 2018-06-28 15:06 | Emergency (ER) | payer SELFPAY ==
[~2018-06-28] VITALS: Ht 167.6 cm; Wt 114.3 kg
--- OUTSIDE RECORDS SUMMARY | 2018-06-28 15:13 | XMS REPORT ---
Author Author ABRAM FINCH Organization [facility] Address [address] [place] [address] Care Team Providers Care Manager Library Name Role Phone ABRAM FINCH Unavailable PROBLEMS Type Condition ICD9-CM Code HXZ53-ZH Code Onset Dates Condition Status SNOMED Code Problem Cannabis dependence F12.20 Active 00993730 Problem Methamphetamine use disorder, moderate, 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 Active 406723295 Problem Moderate persistent asthma with acute exacerbation J45.41 Active 638861292029513 Problem Mild intermittent asthma without complication J45.20 Active 071720661 ALLERGIES Substance Reaction Event Type Date Status Penicillin V Potassium anaphylaxis Drug Allergy May, Active ENCOUNTERS Encounter Location Date Diagnosis [facility] [address] [address] May, Mild intermittent asthma without complication J45.20 ; Methamphetamine use disorder, moderate, 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 and Encounter for immunization Z23 [facility] [address] [address] Mar, Chest congestion R09.89 ; Cough R05 and Moderate persistent asthma with acute exacerbation J45.41 [facility] [address] [address] Mar, [facility] [address] [address] Mar, Moderate persistent asthma with acute exacerbation J45.41 [facility] [address] [address] Sep, [facility] [address] [place] [address] Sep, Methamphetamine use disorder, moderate, 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 and Cannabis dependence F12.20 [facility] [address] [place] [address] Sep, Moderate persistent asthma with acute exacerbation J45.41 and BMI 40.0-44.9, adult Z68.41 [facility] [address] [address] Aug, [place] [id number] [place] [id number] Mar, Moderate persistent asthma with acute exacerbation J45.41 ; Cough R05 and Fever and chills R50.9 [place] [address] [place] [address] [id number] Feb, Moderate persistent asthma with acute exacerbation J45.41 [place] [address] [place] [address] [id number] Jan, Cough R05 ; Fever, unspecified fever cause R50.9 ; Tobacco abuse Z72.0 ; Tobacco abuse counseling Z71.6 and Acute diffuse otitis externa of left ear H60.312 [place] [address] [place] [id number] December, [place] [address] [place] [address] [id number] December, Moderate persistent asthma with acute exacerbation J45.41 ; Cough R05 ; Tobacco abuse Z72.0 and Tobacco abuse counseling Z71.6 [place] [address] [place] [address] [id number] Oct, Atypical pneumonia J18.9 ; Viral gastroenteritis A08.4 ; Diarrhea of presumed infectious origin A09 ; Dark stools R19.5 and Bronchitis J40 [address] [place] [id number] Sep, Atypical pneumonia J18.9 ; Viral gastroenteritis A08.4 ; Diarrhea of presumed infectious origin A09 and Dark stools R19.[address] [place] [id number] Sep, Atypical pneumonia J18.9 and Vomiting, unspecified R11.10 [address] [phone] Sep, Bronchitis J40 [facility] [id number] [id number] Sep, Bronchitis J40 ; Community acquired pneumonia J18.9 and Left flank tenderness R10.819 [facility] [id number] [place] [id number] Sep, Bronchitis J40 and Community acquired pneumonia J18.9 [place] [address] [place] [id number] Sep, Acute diffuse otitis externa of left ear H60.312 ; Bronchitis J40 and Community acquired pneumonia J18.9 [address] [id number] Sep, Bronchitis J40 [facility] [address] [place] [id number] Sep, Bronchitis J40 [place] [address] [place] [id number] Sep, Upper respiratory tract infection, unspecified type J06.9 and Cough R05 [address] [place] [address] [id number] Jul, Mild intermittent asthma without complication J45.20 ; Encounter for immunization Z23 ; Bilateral carpal tunnel syndrome G56.03 ; Medial epicondylitis of left elbow M77.02 and Medial epicondylitis, right elbow M77.01 IMMUNIZATIONS Vaccine Route Administration Date Status FLULAVAL QUAD 0.5ML (6 MO & UP) 2018 IM Intramuscular May 05, 2018 Administered SOCIAL HISTORY Never Assessed REASON FOR VISIT Ear pain, chest congestion and wheezing since the weekend. fever and diarreah started last night. Sore throat and sinus congestion. Cshepherkenna JOSHI, pt would like to get tested for HIV and a hep C vaccine. Oleg JOSHI PLAN OF CARE Activity Details Follow Up we will call w lab results Reason: Pending Test HIV (STATE) Pending Test HEPATITIS PROFILE Pending Test CMP Pending Test CBC Pending Test TSH Pending Test PLATELET ESTIMATION Pending Test CBC MORPHOLOGY VITAL SIGNS Height 67 in 2018-05-05 Weight 252.4 lbs 2018-05-05 Temperature 98.9 degrees Fahrenheit 2018-05-05 Heart Rate 110 bpm 2018-05-05 Respiratory Rate 23 2018-05-05 BMI 39.53 kg/m2 2018-05-05 Blood pressure systolic 130 mmHg 2018-05-05 Blood pressure diastolic 80 mmHg 2018-05-05 MEDICATIONS Medication Instructions Dosage Frequency Start Date End Date Duration Status Albuterol Sulfate (2.5 MG/3ML) 0.083% Inhalation every 4 hours prn 3 ml Active Advair Diskus 250-50 MCG/DOSE Inhalation Twice a day 1 puff 12h Active Singulair 10 mg Orally Once a day 1 tablet in the evening 24h Active Ipratropium-Albuterol 0.5-2.5 (3) MG/3ML Inhalation every 6 hrs 3 ml 6h Mar, 30 days Active CompAir Nebulizer - as directed Sep, Active Ciprodex 0.3-0.1 % Otic Twice a day 4 drops into affected ear 12h May, 7 days Active Albuterol Sulfate HFA 108 (90 Base) MCG/ACT Inhalation every 6 hrs 2 puffs as needed 6h May, Active Albuterol Sulfate HFA 108 (90 Base) MCG/ACT Inhalation every 4 hrs 2 puffs as needed 4h Active Zyrtec Allergy 10 MG Orally Once a day 1 tablet 24h 30 day(s) Active RESULTS No Results PROCEDURES Procedure Date Ordered Result Body Site COMPLETE CBC W/AUTO DIFF WBC May 05, 2018 COMPREHEN METABOLIC PANEL May 05, 2018 SINGLE IMMUNIZATION ADMIN May 05, 2018 FLULAVAL QUAD 0.5ML (6 MO AND UP) 2017May 05, 2018 ACUTE HEPATITIS PANEL May 05, 2018 No Charge May 05, 2018 VENIPUNCT, ROUTINE* May 05, 2018 ASSAY THYROID STIM HORMONE May 05, 2018 INSTRUCTIONS MEDICATIONS ADMINISTERED No Known Medications MEDICAL (GENERAL) HISTORY Type Description Date Medical History asthma Surgical History cholecystectomy Surgical History hiatal hernia repair Surgical History umbilical hernia repair Hospitalization History Surgery(s) only Hospitalization History pneumonia
--- OUTSIDE RECORDS SUMMARY | 2018-06-28 15:14 | XMS REPORT ---
Author Author ROOSEVELT ARTEAGA Organization [facility] Address [address] [place] [address] Care Team Providers Care Salvage Clerk Name Role Phone ROOSEVELT ARTEAGA Unavailable PROBLEMS Type Condition ICD9-CM Code EZM50-MN Code Onset Dates Condition Status SNOMED Code Problem Cannabis dependence F12.20 Active 76367383 Problem Methamphetamine use disorder, moderate, 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 Active 366366522 Problem Moderate persistent asthma with acute exacerbation J45.41 Active 929768507079951 Problem Mild intermittent asthma without complication J45.20 Active 425220824 ALLERGIES No Information ENCOUNTERS Encounter Location Date Diagnosis [facility] [address] [place] [address] Mar, Chest congestion R09.89 ; Cough R05 and Moderate persistent asthma with acute exacerbation J45.[address] [address] Mar, [address] [address] Mar, Moderate persistent asthma with acute exacerbation J45.41 [facility] [address] [place] [address] Sep, [facility] [address] [place] [address] Sep, Methamphetamine use disorder, moderate, 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 and Cannabis dependence F12.20 [facility] [address] [place] [address] Sep, Moderate persistent asthma with acute exacerbation J45.41 and BMI 40.0-44.9, adult Z68.[address] [address] Aug, [address] [place] [id number] Mar, Moderate persistent asthma with acute exacerbation J45.41 ; Cough R05 and Fever and chills R50.9 [address] [place] [address] [id number] Feb, Moderate persistent asthma with acute exacerbation J45.41 [place] [address] [place] [address] [id number] Jan, Cough R05 ; Fever, unspecified fever cause R50.9 ; Tobacco abuse Z72.0 ; Tobacco abuse counseling Z71.6 and Acute diffuse otitis externa of left ear H60.312 [address] [address] [place] [address] [id number] December, [address] [address] [place] [address] [id number] December, Moderate persistent asthma with acute exacerbation J45.41 ; Cough R05 ; Tobacco abuse Z72.0 and Tobacco abuse counseling Z71.6 [address] [place] [address] [id number] Oct, Atypical pneumonia J18.9 ; Viral gastroenteritis A08.4 ; Diarrhea of presumed infectious origin A09 ; Dark stools R19.5 and Bronchitis J40 [place] [address] [place] [id number] Sep, Atypical pneumonia J18.9 ; Viral gastroenteritis A08.4 ; Diarrhea of presumed infectious origin A09 and Dark stools R19.[address] [place] [address] [id number] Sep, Atypical pneumonia J18.9 and Vomiting, unspecified R11.[address] [id number] [phone] Sep, Bronchitis J40 [address] [place] [id number] Sep, Bronchitis J40 ; Community acquired pneumonia J18.9 and Left flank tenderness R10.819 [place] [address] [id number] Sep, Bronchitis J40 and Community acquired pneumonia J18.[address] [facility] [id number] [id number] Sep, Acute diffuse otitis externa of left ear H60.312 ; Bronchitis J40 and Community acquired pneumonia J18.9 [place] [address] [facility] [id number] [id number] Sep, Bronchitis J40 [facility] [id number] [id number] Sep, Bronchitis J40 [facility] [id number] [phone] Sep, Upper respiratory tract infection, unspecified type J06.[address] [facility] [address] [id number] Jul, Mild intermittent asthma without complication J45.20 ; Encounter for immunization Z23 ; Bilateral carpal tunnel syndrome G56.03 ; Medial epicondylitis of left elbow M77.02 and Medial epicondylitis, right elbow M77.01 IMMUNIZATIONS No Known Immunizations SOCIAL HISTORY Never Assessed REASON FOR VISIT PLAN OF CARE VITAL SIGNS MEDICATIONS Medication Instructions Dosage Frequency Start Date End Date Duration Status Doxycycline Hyclate 100 mg Orally twice a day 1 capsule 12h Mar, Apr, 07 days Active PredniSONE 20 mg Orally Once a day 2 tablets 24h Mar, 2 Apr, 2018 05 days Active RESULTS No Results PROCEDURES No Known procedures INSTRUCTIONS MEDICATIONS ADMINISTERED No Known Medications MEDICAL (GENERAL) HISTORY Type Description Date Medical History asthma Surgical History cholecystectomy Surgical History hiatal hernia repair Surgical History umbilical hernia repair Hospitalization History Surgery(s) only Hospitalization History pneumonia
--- OUTSIDE RECORDS SUMMARY | 2018-06-28 15:14 | XMS REPORT ---
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 Active 825503378 Problem Moderate persistent asthma with acute exacerbation J45.41 Active 926966416366956 Problem Mild intermittent asthma without complication J45.20 Active 594744461 ALLERGIES Substance Reaction Event Type Date Status Penicillin V Potassium anaphylaxis Drug Allergy Mar, Active ENCOUNTERS Encounter Location Date Diagnosis [facility] [address] [phone] Mar, Chest congestion R09.89 ; Cough R05 and Moderate persistent asthma with acute exacerbation J45.[address] [address] Mar, [address] [address] Mar, Moderate persistent asthma with acute exacerbation J45.41 [facility] [address] [place] [phone] Sep, [facility] [address] [place] [phone] Sep, Methamphetamine use disorder, moderate, 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 and Cannabis dependence F12.20 [facility] [address] [place] [address] Sep, Moderate persistent asthma with acute exacerbation J45.41 and BMI 40.0-44.9, adult Z68.[address] [place] [address] Aug, [address] [place] [phone] Mar, Moderate persistent asthma with acute exacerbation J45.41 ; Cough R05 and Fever and chills R50.9 [address] [place] [address] [id number] Feb, Moderate persistent asthma with acute exacerbation J45.41 [place] [id number] [place] [phone] Jan, Cough R05 ; Fever, unspecified fever cause R50.9 ; Tobacco abuse Z72.0 ; Tobacco abuse counseling Z71.6 and Acute diffuse otitis externa of left ear H60.312 [place] [id number] [place] [address] [phone] December, [place] [id number] [place] [address] [id number] December, Moderate persistent asthma with acute exacerbation J45.41 ; Cough R05 ; Tobacco abuse Z72.0 and Tobacco abuse counseling Z71.6 [address] [place] [address] [phone] Oct, Atypical pneumonia J18.9 ; Viral gastroenteritis A08.4 ; Diarrhea of presumed infectious origin A09 ; Dark stools R19.5 and Bronchitis J40 [address] [place] [address] [phone] Sep, Atypical pneumonia J18.9 ; Viral gastroenteritis A08.4 ; Diarrhea of presumed infectious origin A09 and Dark stools R19.5 [address] [place] [address] [id number] Sep, Atypical pneumonia J18.9 and Vomiting, unspecified R11.10 [place] [address] [id number] [phone] Sep, Bronchitis J40 [address] [place] [id number] Sep, Bronchitis J40 ; Community acquired pneumonia J18.9 and Left flank tenderness R10.[address] [facility] [address] [facility] [id number] [phone] Sep, Bronchitis J40 and Community acquired pneumonia J18.[address] [facility] [id number] [id number] Sep, Acute diffuse otitis externa of left ear H60.312 ; Bronchitis J40 and Community acquired pneumonia J18.[address] [id number] [phone] Sep, Bronchitis J40 [facility] [address] [facility] [id number] [phone] Sep, Bronchitis J40 [facility] [address] [place] [id number] [place] [id number] Sep, Upper respiratory tract infection, unspecified type J06.9 and Cough R05 [address] [place] [address] [id number] Jul, Mild intermittent asthma without complication J45.20 ; Encounter for immunization Z23 ; Bilateral carpal tunnel syndrome G56.03 ; Medial epicondylitis of left elbow M77.02 and Medial epicondylitis, right elbow M77.01 IMMUNIZATIONS No Known Immunizations SOCIAL HISTORY Never Assessed REASON FOR VISIT Congestion/Cough, PT reports this all began yesterday and has been experincing lsos of appetite, diarrhea, unable to catch your breath. PT notes cold chills as well as fever and treated it with Ibuprofen. PT also notes headache and fatigue. pt reports she dealt with this many times in the past -[facility] PLAN OF CARE Activity Details Follow Up prn Reason: VITAL SIGNS Height 67 in 2018-03-31 Weight 246.5 lbs 2018-03-31 Temperature 98.9 degrees Fahrenheit 2018-03-31 Heart Rate 110 bpm 2018-03-31 Respiratory Rate 20 2018-03-31 Oximetry 98 % 2018-03-31 BMI 38.60 kg/m2 2018-03-31 Blood pressure systolic 130 mmHg 2018-03-31 Blood pressure diastolic 88 mmHg 2018-03-31 MEDICATIONS Medication Instructions Dosage Frequency Start Date End Date Duration Status Advair Diskus 250-50 MCG/DOSE Inhalation Twice a day 1 puff 12h Active Singulair 10 mg Orally Once a day 1 tablet in the evening 24h Active Albuterol Sulfate (2.5 MG/3ML) 0.083% Inhalation every 4 hours prn 3 ml Active PredniSONE 20 mg Orally Once a day 2 tablets 24h Mar, 2 Apr, 2018 05 days Active Promethazine HCl 25 MG Orally every 12 hrs for nausea 1 tablet as needed Active Doxycycline Hyclate 100 mg Orally twice a day 1 tablet 12h Mar, 4 Apr, 2018 07 days Active Albuterol Sulfate HFA 108 (90 Base) MCG/ACT Inhalation every 4 hrs 2 puffs as needed 4h Active Albuterol Sulfate (2.5 MG/3ML) 0.083% Inhalation every 6 hrs 3 ml as needed 6h Sep, 5 days Active CompAir Nebulizer - as directed Sep, Active RESULTS No Results PROCEDURES No Known procedures INSTRUCTIONS MEDICATIONS ADMINISTERED No Known Medications MEDICAL (GENERAL) HISTORY Type Description Date Medical History asthma Surgical History cholecystectomy Surgical History hiatal hernia repair Surgical History umbilical hernia repair Hospitalization History Surgery(s) only Hospitalization History pneumonia
--- OUTSIDE RECORDS SUMMARY | 2018-06-28 15:14 | XMS REPORT ---
Author Author ANNA AYERS Organization [facility] Address [address] [place] [address] Care Team Providers Care Copy Chief Name Role Phone ANNA AYERS Unavailable PROBLEMS Type Condition ICD9-CM Code GRG77-AM Code Onset Dates Condition Status SNOMED Code Problem Cannabis dependence F12.20 Active 23336243 Problem Methamphetamine use disorder, moderate, 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 Active 977547905 Problem Moderate persistent asthma with acute exacerbation J45.41 Active 659959519079819 Problem Mild intermittent asthma without complication J45.20 Active 348411618 ALLERGIES Substance Reaction Event Type Date Status Penicillin V Potassium anaphylaxis Drug Allergy Mar, Active ENCOUNTERS Encounter Location Date Diagnosis [facility] [id number] [place] [phone] Mar, Chest congestion R09.89 ; Cough R05 and Moderate persistent asthma with acute exacerbation J45.41 [facility] [id number] [place] [address] Mar, [facility] [address] [place], [place] [id number] [place] [address] Mar, Moderate persistent asthma with acute exacerbation J45.41 [facility] [id number] [place] [phone] Sep, [facility] [address] [place] [phone] Sep, Methamphetamine use disorder, moderate, 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 and Cannabis dependence F12.20 [facility] [id number] [place] [address] Sep, Moderate persistent asthma with acute exacerbation J45.41 and BMI 40.0-44.9, adult Z68.41 [place] [address] [address] Aug, [address] [place] [phone] Mar, Moderate persistent asthma with acute exacerbation J45.41 ; Cough R05 and Fever and chills R50.9 [address] [place] [id number] Feb, Moderate persistent asthma with acute exacerbation J45.41 [place] [id number] [place] [address] [id number] Jan, Cough R05 ; Fever, unspecified fever cause R50.9 ; Tobacco abuse Z72.0 ; Tobacco abuse counseling Z71.6 and Acute diffuse otitis externa of left ear H60.312 [place] [id number] [place] [address] [phone] December, [place] [id number] [place] [address] [phone] December, Moderate persistent asthma with acute exacerbation J45.41 ; Cough R05 ; Tobacco abuse Z72.0 and Tobacco abuse counseling Z71.6 [address] [place] [phone] Oct, Atypical pneumonia J18.9 ; Viral gastroenteritis A08.4 ; Diarrhea of presumed infectious origin A09 ; Dark stools R19.5 and Bronchitis J40 [address] [place] [id number] Sep, Atypical pneumonia J18.9 ; Viral gastroenteritis A08.4 ; Diarrhea of presumed infectious origin A09 and Dark stools R19.5 [address] [place] [id number] Sep, Atypical pneumonia J18.9 and Vomiting, unspecified R11.10 [place] [address] [id number] [phone] Sep, Bronchitis J40 [address] [place] [id number] Sep, Bronchitis J40 ; Community acquired pneumonia J18.9 and Left flank tenderness R10.819 [facility] [address] [facility] [id number] [id number] Sep, Bronchitis J40 and Community acquired pneumonia J18.9 [facility] [id number] [phone] Sep, Acute diffuse otitis externa of left ear H60.312 ; Bronchitis J40 and Community acquired pneumonia J18.[address] [id number] [phone] Sep, Bronchitis J40 [facility] [address] [facility] [id number] [phone] Sep, Bronchitis J40 [facility] [address] [place] [id number] [place] [phone] Sep, Upper respiratory tract infection, unspecified type J06.9 and Cough R05 [facility] [address] [phone] Jul, Mild intermittent asthma without complication J45.20 ; Encounter for immunization Z23 ; Bilateral carpal tunnel syndrome G56.03 ; Medial epicondylitis of left elbow M77.02 and Medial epicondylitis, right elbow M77.01 IMMUNIZATIONS No Known Immunizations SOCIAL HISTORY Never Assessed REASON FOR VISIT chest congestion that has gotten worse since she was seen two days ago.--ADI Carl PLAN OF CARE Activity Details Follow Up 1 Week, prn Reason:if symptoms worsen or not improving VITAL SIGNS Height 67 in 2018-04-02 Weight 246.5 lbs 2018-04-02 Temperature 97.9 degrees Fahrenheit 2018-04-02 Heart Rate 100 bpm 2018-04-02 Respiratory Rate 22 2018-04-02 Oximetry 99 % 2018-04-02 BMI 38.60 kg/m2 2018-04-02 Blood pressure systolic 128 mmHg 2018-04-02 Blood pressure diastolic 68 mmHg 2018-04-02 MEDICATIONS Medication Instructions Dosage Frequency Start Date End Date Duration Status Albuterol Sulfate HFA 108 (90 Base) MCG/ACT Inhalation every 4 hrs 2 puffs as needed 4h Active Singulair 10 mg Orally Once a day 1 tablet in the evening 24h Active CompAir Nebulizer - as directed Sep, Active Levofloxacin 750 MG Orally Once a day 1 tablet 24h Mar, Apr, 10 day(s) Active Advair Diskus 250-50 MCG/DOSE Inhalation Twice a day 1 puff 12h Active Albuterol Sulfate (2.5 MG/3ML) 0.083% Inhalation every 4 hours prn 3 ml Active Dextromethorphan-Guaifenesin 20-400 MG Orally every 4 hrs 1 tablet 4h Mar, Apr, 03 days Active Ipratropium-Albuterol 0.5-2.5 (3) MG/3ML Inhalation every 6 hrs 3 ml 6h Mar, 30 days Active PredniSONE 20 mg Orally Once a day 2 tablets 24h Mar, Apr, 05 days Active RESULTS Name Result Date Reference Range Xray : Chest 2 View (IN HOUSE) 2018-04-02 PROCEDURES Procedure Date Ordered Result Body Site X-RAY EXAM CHEST 2 VIEWS Apr 02, 2018 INSTRUCTIONS MEDICATIONS ADMINISTERED No Known Medications MEDICAL (GENERAL) HISTORY Type Description Date Medical History asthma Surgical History cholecystectomy Surgical History hiatal hernia repair Surgical History umbilical hernia repair Hospitalization History Surgery(s) only Hospitalization History pneumonia
--- OUTSIDE RECORDS SUMMARY | 2018-06-28 15:15 | XMS REPORT | Continuity of Care Document ---
Demographics Preferred Language Unknown Marital Status Unknown [employer] Affiliation Unknown Race Unknown Ethnic Group Unknown Author Author [employer] Organization [facility] Address Unknown Phone Unavailable Allergies There is no data. Medications There is no data. Problems There is no data. Procedures There is no data. Results Test Result Range CBC MORPHOLOGY - 05/05/18 16:01 CBC MORPHOLOGY NORMAL Encounters ACCT No. Visit Date/Time Discharge Status Pt. Type Provider Facility Loc./Unit Complaint [id number] 09/12/2017 14:00:00 09/12/2017 23:59:59 CLS [facility] [id number] 05/05/2018 15:00:00 Document Registration
[2018-06-28] MEDS ORDERED: RT-ALBUTEROL/IPRATROPIUM 3 ML (DUONEB) VIAL INH ONE ×2 (15:30→16:45)
[2018-06-28 15:49] LABS: BASOPHILS % (AUTO) 0 % (0-10); EOSINOPHILS # (AUTO) 0.2 10^3/uL (0.0-0.3); EOSINOPHILS % (AUTO) 4 % (0-10); HEMATOCRIT 33 % (35-52); HEMOGLOBIN 10.8 G/DL (11.5-16.0); LYMPHOCYTES # (AUTO) 1.3 X 10^3 (1.0-4.0); LYMPHOCYTES % (AUTO) 21 % (12-44); MEAN CORPUSCULAR HEMOGLOBIN 23 PG (25-34); MEAN CORPUSCULAR HGB CONC 33 G/DL (32-36); MEAN CORPUSCULAR VOLUME 70 FL (80-99); MEAN PLATELET VOLUME 10.4 FL (7.4-10.4); MONOCYTES # (AUTO) 0.4 X 10^3 (0.0-1.0); MONOCYTES % (AUTO) 7 % (0-12); NEUTROPHILS # (AUTO) 4.2 X 10^3 (1.8-7.8); NEUTROPHILS % (AUTO) 68 % (42-75); PLATELET COUNT 402 10^3/uL (130-400); RED BLOOD COUNT 4.74 10^6/uL (4.35-5.85); RED CELL DISTRIBUTION WIDTH 25.7 % (10.0-14.5); WHITE BLOOD COUNT 6.2 10^3/uL (4.3-11.0)
[2018-06-28 16:09] LABS: ALANINE AMINOTRANSFERASE 14 U/L (0-55); ALBUMIN 4.1 GM/DL (3.2-4.5); ALKALINE PHOSPHATASE 52 U/L (40-136); BILIRUBIN,TOTAL 0.2 MG/DL (0.1-1.0); BUN/CREATININE RATIO 7; CALCIUM 9.1 MG/DL (8.5-10.1); CARBON DIOXIDE 21 MMOL/L (21-32); CHLORIDE 105 MMOL/L (98-107); CREATININE SERUM 0.85 MG/DL (0.60-1.30); GFR ESTIMATED > 60; GLUCOSE 125 MG/DL (70-105); MAGNESIUM 1.8 MG/DL (1.8-2.4); POTASSIUM 3.6 MMOL/L (3.6-5.0); SODIUM 138 MMOL/L (135-145); TOTAL PROTEIN 7.7 GM/DL (6.4-8.2)
--- NOTE | 2018-06-28 16:20 | Diagnostic Imaging Report ---
PA and lateral chest. INDICATION: Chest pain. FINDINGS: No focal infiltrate or consolidation evident. There is no effusion. There is no pneumothorax. Heart size and mediastinal contours are appropriate and pulmonary vascularity appears within normal limits without evidence of pulmonary edema or failure. There is no acute or suspicious osseous abnormality evident. IMPRESSION: 1. No radiographic evidence of an acute cardiopulmonary process. Dictated by: Dictated on workstation # [id number]
--- NOTE | 2018-06-28 16:34 | ED Chest Pain ---
General Chief Complaint: Chest Pain Stated Complaint: CHEST PAIN,SOB,LEFT ARM PAIN Source: patient Exam Limitations: no limitations History of Present Illness Date Seen by Provider: Jun 28, 2018 Time Seen by Provider: 15:20 Initial Comments This 38-year-old woman presents to the emergency room with complaints of chest tightness and discomfort in the upper chest for about one hour. She has audible wheezing. She reports using her inhaler with insufficient results. She uses her inhaler about every day. She has had a dry cough for a couple of days. She does have some discomfort with inspiration. She is presently living in the women's house as she is in recovery. She does not have her nebulizer machine with her. She is afebrile. She is still smoking but is working on cessation and is presently taking Chantix. Allergies and Home Medications Allergies Coded Allergies: Penicillins (Verified Allergy, Unknown, lip swelling, 03/18/18) Home Medications Albuterol Sulfate 2.5 Mg/3 Ml Vial.neb, 2.5 MG IH Q4H PRN for SHORTNESS OF BREATH Prescribed by: YOEL MAKI on 06/28/181750 Prednisone 20 Mg Tab, 40 MG PO DAILY Prescribed by: YOEL MAKI on 06/28/181750 Patient Home Medication List Home Medication List Reviewed: Yes Review of Systems Review of Systems Constitutional: no symptoms reported EENTM: No Symptoms Reported Respiratory: See HPI Cardiovascular: No Symptoms Reported Gastrointestinal: No Symptoms Reported Genitourinary: No Symptoms Reported Musculoskeletal: no symptoms reported Skin: no symptoms reported Psychiatric/Neurological: No Symptoms Reported Endocrine: No Symptoms Reported Hematologic/Lymphatic: No Symptoms Reported Past Yofyrjx-Rghftt-Nvpgzw Hx Patient Social History Recent Foreign Travel: No Contact w/Someone Who Travel: No Recent Hopitalizations: No Past Medical History Surgeries: Yes (HIATAL HERNIA REPAIR) Abdominal (umbilical hernia repair), Gallbladder Respiratory: Yes Asthma, COPD Cardiac: Yes Hypertension Neurological: No : No Genitourinary: Yes Kidney Stones Gastrointestinal: No Musculoskeletal: Yes Fractures Endocrine: No HEENT: No Cancer: No Psychosocial: Yes Anxiety Integumentary: No Blood Disorders: Yes (IRON DEFICIENCY ) Physical Exam Vital Signs Vital Signs - First Documented Capillary Refill : Height, Weight, BMI Height: 5'7.00" Weight: 235lbs. oz. 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 Skin: Normal Color, Warm/Dry Progress/Results/Core Measures Results/Orders Lab Results Laboratory Tests Test 06/28/18 15:25 Range/Units White Blood Count 6.2 4.3-11.0 10^3/uL Red Blood Count 4.74 4.35-5.85 10^6/uL Hemoglobin 10.8 L 11.5-16.0 G/DL Hematocrit 33 L 35-52 % Mean Corpuscular Volume 70 L 80-99 FL Mean Corpuscular Hemoglobin 23 L 25-34 PG Mean Corpuscular Hemoglobin Concent 33 32-36 G/DL Red Cell Distribution Width 25.7 H 10.0-14.5 % Platelet Count 402 H 130-400 10^3/uL Mean Platelet Volume 10.4 7.4-10.4 FL Neutrophils (%) (Auto) 68 42-75 % Lymphocytes (%) (Auto) 21 12-44 % Monocytes (%) (Auto) 7 0-12 % Eosinophils (%) (Auto) 4 0-10 % Basophils (%) (Auto) 0 0-10 % Neutrophils # (Auto) 4.2 1.8-7.8 X 10^3 Lymphocytes # (Auto) 1.3 1.0-4.0 X 10^3 Monocytes # (Auto) 0.4 0.0-1.0 X 10^3 Eosinophils # (Auto) 0.2 0.0-0.3 10^3/uL Basophils # (Auto) 0.0 0.0-0.1 10^3/uL Sodium Level 138 135-145 MMOL/L Potassium Level 3.6 3.6-5.0 MMOL/L Chloride Level 105 98-107 MMOL/L Carbon Dioxide Level 21 21-32 MMOL/L Anion Gap 12 5-14 MMOL/L Blood Urea Nitrogen 6 L 7-18 MG/DL Creatinine 0.85 0.60-1.30 MG/DL Estimat Glomerular Filtration Rate > 60 BUN/Creatinine Ratio 7 Glucose Level 125 H 70-105 MG/DL Calcium Level 9.1 8.5-10.1 MG/DL Corrected Calcium 9.0 8.5-10.1 MG/DL Magnesium Level 1.8 1.8-2.4 MG/DL Total Bilirubin 0.2 0.1-1.0 MG/DL Aspartate Amino Transf (AST/SGOT) 16 5-34 U/L Alanine Aminotransferase (ALT/SGPT) 14 0-55 U/L Alkaline Phosphatase 52 40-136 U/L Troponin I < 0.30 <0.30 NG/ML Total Protein 7.7 6.4-8.2 GM/DL Albumin 4.1 3.2-4.5 GM/DL Micro Results Microbiology 06/28/18 Influenza Types A,B Antigen (RODDY) - Final, Complete My Orders Orders - YOEL GUERRA MD Cbc With Automated Diff (06/28/18 15:30) Comprehensive Metabolic Panel (06/28/18 15:30) Magnesium (06/28/18 15:30) Albuterol/Ipra Inhalation Soln (Duoneb I (06/28/18 15:30) Svn Small Volume Nebulizer (06/28/18 15:30) Chest Pa/Lat (2 View) (06/28/18 15:30) Troponin I (06/28/18 15:30) Influenza A And B Antigens (06/28/18 16:04) Saline Lock/Iv-Start (06/28/18 16:37) Ns Iv 1000 Ml (Sodium Chloride 0.9%) (06/28/18 16:37) Methylprednisolone Sod Succ (Solu-Medrol (06/28/18 16:45) Ketorolac Injection (Toradol Injection) (06/28/18 16:45) Albuterol/Ipra Inhalation Soln (Duoneb I (06/28/18 16:45) Svn Small Volume Nebulizer (06/28/18 16:42) Medications Given in ED Current Medications Medications Dose Ordered Sig/Mir Route Start Time Stop Time Status Last Admin Dose Admin Albuterol/ Ipratropium 3 ml ONCE ONCE INH 06/28/18 15:30 06/28/18 15:32 DC 06/28/18 15:43 3 ML Albuterol/ Ipratropium 3 ml ONCE ONCE INH 06/28/18 16:45 06/28/18 16:46 DC 06/28/18 17:13 3 ML Ketorolac Tromethamine 15 mg ONCE ONCE IVP 06/28/18 16:45 06/28/18 16:46 DC 06/28/18 16:48 15 MG Methylprednisolone Sodium Succinate 125 mg ONCE ONCE IVP 06/28/18 16:45 06/28/18 16:46 DC 06/28/18 16:47 125 MG Sodium Chloride 1,000 ml @ 0 mls/hr Q0M ONCE IV 06/28/18 16:37 06/28/18 16:38 DC 06/28/18 16:42 1,000 MLS/HR Vital Signs/I&O 06/28/18 06/28/18 06/28/18 06/28/18 15:13 15:13 15:43 17:13 Temp 99.3 Pulse 104 Resp 23 B/P (MAP) 140/87 (104) Pulse Ox 95 96 97 O2 Delivery Room Air Room Air Room Air Room Air 06/28/18 18:13 Pulse 98 Resp 18 B/P (MAP) 132/78 (96) Pulse Ox 98 O2 Delivery Room Air Progress Progress Note : Progress Note Patient received DuoNeb treatments 2 for treatment of wheezing. She also received a Solu-Medrol injection. Chest x-ray showed no evidence of pneumonia. Influenza screen is negative. Toradol was used for pain control which did improve her pain. Patient identifies her pain is more of a muscle pain toward the left lateral neck. Return precautions were discussed. Patient was encouraged to continue toward smoking cessation. Prescription was provided for her nebulizer machine. Initial ECG Impression Date: Jun 28, 2018 Initial ECG Impression Time: 15:16 Initial ECG Rate: 106 Initial ECG Rhythm: S.Tach Comment Sinus tachycardia with no ST elevation or depression. No abnormal intervals or axis deviation. LVH by automated read. Diagnostic Imaging Diagonstic Imaging: Xray Plain Films/CT/US/NM/MRI: chest Comments Chest x-ray viewed by me and report reviewed. See report below: NAME: BERTO MCFARLAND MED REC#: [id number] PT STATUS: REG ER : 1980 PHYSICIAN: YOEL GUERRA MD ADMIT DATE: 06/28/18/ER Draft Date of Exam:06/28/18 CHEST PA/LAT (2 VIEW) PA and lateral chest. INDICATION: Chest pain. FINDINGS: No focal infiltrate or consolidation evident. There is no effusion. There is no pneumothorax. Heart size and mediastinal contours are appropriate and pulmonary vascularity appears within normal limits without evidence of pulmonary edema or failure. There is no acute or suspicious osseous abnormality evident. IMPRESSION: 1. No radiographic evidence of an acute cardiopulmonary process. Dictated on workstation # [id number] Dict: 06/28/18 1613 Trans: 06/28/18 1619 [id number] Interpreted by: KELLY ALBARRAN MD Departure Impression Primary Impression: Acute asthma exacerbation Qualified Codes: J45.901 - Unspecified asthma with (acute) exacerbation Additional Impression: Atypical chest pain Disposition: 01 HOME, SELF-CARE Condition: Improved Departure-Patient Inst. Decision time for Depature: 17:48 Referrals: NO,LOCAL PHYSICIAN (PCP/Family) Primary Care Physician Patient Instructions: Asthma in Adults Add. Discharge Instructions: Use your prednisone as prescribed. Avoid smoking and any smoke exposure as much as possible. Work toward complete cessation of smoking as soon as possible. This is best done early in the Chantix treatment. Please have a low threshold for returning to the emergency room if symptoms are worsening. Follow-up with a primary care provider soon as possible. Use your inhaler 2-4 puffs every 4 hours as needed for wheezing and shortness of breath. Alternatively use the nebulizer machine. All discharge instructions reviewed with patient and/or family. Voiced understanding. Scripts Prednisone (Prednisone) 20 Mg Tab 40 MG PO DAILY, #8 TAB Prov: YOEL GUERRA MD 06/28/18 Albuterol Sulfate (Albuterol Sulfate) 2.5 Mg/3 Ml Vial.neb 2.5 MG IH Q4H PRN for SHORTNESS OF BREATH, #30 EA Prov: YOEL GUERRA MD 06/28/18 Copy Copies To 1: MARLIN MEDINA MD, JOSHUA T MD Jun 28, 2018 16:33
[2018-06-28] MEDS ORDERED: NS IV 1000 ML 1,000 ML IV ONE (16:37)
[2018-06-28] MEDS ORDERED: KETOROLAC 30 MG/ML VIAL IVP ONE (16:45)
[2018-06-28] MEDS ORDERED: methylPREDNISolone 125 MG (Solu-MEDROL) VIAL IVP ONE (16:45)
[2018-06-28] MEDS ORDERED: PRD20T PO (17:51)
[2018-06-28] MEDS ORDERED: ALBU2.5V4 IH (17:51)
[2018-06-28 18:13] VITALS: BP 132/78
== END 2018-06-28 18:13 | disposition home or self-care (01) ==
LOC: EDUNIT# 15:06 → ER 15:08
DX: J45.901 Unspecified asthma with (acute) exacerbation (principal); R07.9 Chest pain, unspecified; J44.9 Chronic obstructive pulmonary disease, unspecified; I10 Essential (primary) hypertension; F41.9 Anxiety disorder, unspecified; D50.9 Iron deficiency anemia, unspecified; F17.210 Nicotine dependence, cigarettes, uncomplicated; Z87.442 Personal history of urinary calculi; Z88.0 Allergy status to penicillin; Z79.52 Long term (current) use of systemic steroids; Z79.51 Long term (current) use of inhaled steroids; Z98.890 Other specified postprocedural states
CPT/HCPCS: 36415; 71046; 80053; 83735; 84484; 85025; 87804; 93005; 94640; 96361; 96374; 96375

== ENCOUNTER 2019-03-05 15:11 | Inpatient (IN) | payer SELFPAY ==
[~2019-03-05] VITALS: Ht 170.2 cm; Wt 129.5 kg
[~2019-03-05 15:11] MED LIST: ALBU2.5V4 IH; PRD20T PO
[2019-03-05 15:37] LABS: BILIRUBIN,URINE NEGATIVE (NEGATIVE); CLARITY,URINE SLIGHTLY CLOUDY; COLOR,URINE YELLOW; GLUCOSE, URINE (UA) NEGATIVE (NEGATIVE); KETONES,URINE NEGATIVE (NEGATIVE); LEUKOCYTE ESTERASE ,URINE NEGATIVE (NEGATIVE); NITRITE,URINE NEGATIVE (NEGATIVE); PH,URINE 6 (5-9); PROTEIN,URINE 1+ (NEGATIVE); UROBILINOGEN,URINE 1 MG/DL (NORMAL)
--- NOTE | 2019-03-05 15:40 | ED Abdominal Pain ---
General Stated Complaint: ABD PAIN Source of Information: Patient History of Present Illness Date Seen by Provider: Mar 05, 2019 Time Seen by Provider: 13:20 Initial Comments PT ARRIVES VIA POV C/O LLQ PAIN, ALSO PAIN TO LEFT MID ABDOMEN AND LEFT FLANK--FOR A COUPLE OF DAYS HAS HAD SUBJECTIVE FEVER SINCE LAST PM C/O NAUSEA AND VOMITED X 1 THIS AM AFTER SHE DRANK MILK NO DIARRHEA, LAST BM WAS YESTERDAY AM C/O ALOT OF PAIN ON URINATION, URGENCY AND HAS TO STRAIN TO VOID AND VOIDING SMALL AMOUNTS NO HISTORY OF SIMILAR LMP 01/03-01/09. NORMAL. NO CONTROL. NOT NORMAL TO SKIP PERIODS. HAS NOT DONE HOME TEST. PCP: [facility] SHE JUST M[place] HERE FROM [place]. PT ALSO GOES TO [facility] AND HAS SEEN DR. MEDINA Allergies and Home Medications Allergies Coded Allergies: Penicillins (Verified Allergy, Unknown, lip swelling, 03/18/18) Home Medications Albuterol Sulfate 2.5 Mg/3 Ml Vial.neb, 2.5 MG IH Q4H PRN for SHORTNESS OF BREATH Prescribed by: YOEL MAKI on 06/28/181750 Prednisone 20 Mg Tab, 40 MG PO DAILY Prescribed by: YOEL MAKI on 06/28/181750 Review of Systems Review of Systems Constitutional: see HPI, fever EENTM: No Symptoms Reported Respiratory: No Symptoms Reported Cardiovascular: No Symptoms Reported Gastrointestinal: See HPI, Abdominal Pain; Denies Constipated, Denies Diarrhea; Nausea, Vomiting Genitourinary: See HPI, Burning, Frequency, Flank Pain, Pain, Urgency Musculoskeletal: see HPI, back pain Skin: no symptoms reported Psychiatric/Neurological: No Symptoms Reported Endocrine: No Symptoms Reported Hematologic/Lymphatic: No Symptoms Reported Past Ilsedfc-Fzmsyd-Qwhkqf Hx Patient Social History Smoking Status: Current Everyday Smoker Type Used: Cigarettes 2nd Hand Smoke Exposure: Yes Recent Foreign Travel: No Contact w/Someone Who Travel: No Recent Hopitalizations: No Past Medical History Surgeries: Yes (HIATAL HERNIA REPAIR) Abdominal, Gallbladder Respiratory: Yes Asthma Cardiac: Yes Hypertension Neurological: No Female Reproductive Disorders: Denies Genitourinary: Yes Kidney Stones Gastrointestinal: Yes (HIATAL HERNIA REPAIRED) Hiatal Hernia Musculoskeletal: Yes Fractures Endocrine: No (OBESITY) HEENT: No Cancer: No Psychosocial: No Anxiety Integumentary: No Blood Disorders: Yes (SICKLE CELL TRAIT) Physical Exam Vital Signs Vital Signs - First Documented 03/05/19 15:20 Temp 101.4 Pulse 113 Resp 18 B/P (MAP) 145/110 (122) Pulse Ox 96 O2 Delivery Room Air Capillary Refill : Height/Weight/BMI Height: 5'6.00" Weight: 252lbs. oz. 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, no motor/sensory deficits, alert, normal mood/affect, oriented x 3 Skin: normal color (PT IS BLACK), warm/dry Progress/Results/Core Measures Results/Orders Lab Results Laboratory Tests Test 03/05/19 15:25 03/05/19 15:50 Range/Units Urine Color YELLOW Urine Clarity SLIGHTLY CLOUDY Urine pH 6 5-9 Urine Specific [place] 1.020 1.016-1.022 Urine Protein 1+ H NEGATIVE Urine Glucose (UA) NEGATIVE NEGATIVE Urine Ketones NEGATIVE NEGATIVE Urine Nitrite NEGATIVE NEGATIVE Urine Bilirubin NEGATIVE NEGATIVE Urine Urobilinogen 1 NORMAL MG/DL Urine Leukocyte Esterase NEGATIVE NEGATIVE Urine RBC (Auto) 2+ H NEGATIVE Urine RBC 0-2 /HPF Urine WBC NONE /HPF Urine Squamous Epithelial Cells 10-25 H /HPF Urine Crystals NONE /LPF Urine Bacteria TRACE /HPF Urine Casts NONE /LPF Urine Mucus LARGE H /LPF Urine Culture Indicated NO Urine Opiates Screen NEGATIVE NEGATIVE Urine Oxycodone Screen NEGATIVE NEGATIVE Urine Methadone Screen NEGATIVE NEGATIVE Urine Propoxyphene Screen NEGATIVE NEGATIVE Urine Barbiturates Screen NEGATIVE NEGATIVE Ur Tricyclic Antidepressants Screen NEGATIVE NEGATIVE Urine Phencyclidine Screen NEGATIVE NEGATIVE Urine Amphetamines Screen NEGATIVE NEGATIVE Urine Methamphetamines Screen NEGATIVE NEGATIVE Urine Benzodiazepines Screen NEGATIVE NEGATIVE Urine Cocaine Screen NEGATIVE NEGATIVE Urine Cannabinoids Screen NEGATIVE NEGATIVE White Blood Count 12.6 H 4.3-11.0 10^3/uL Red Blood Count 4.98 4.35-5.85 10^6/uL Hemoglobin 10.7 L 11.5-16.0 G/DL Hematocrit 33 L 35-52 % Mean Corpuscular Volume 66 L 80-99 FL Mean Corpuscular Hemoglobin 21 L 25-34 PG Mean Corpuscular Hemoglobin Concent 33 32-36 G/DL Red Cell Distribution Width 21.9 H 10.0-14.5 % Platelet Count 414 H 130-400 10^3/uL Mean Platelet Volume 11.1 H 7.4-10.4 FL Neutrophils (%) (Auto) 81 H 42-75 % Lymphocytes (%) (Auto) 10 L 12-44 % Monocytes (%) (Auto) 8 0-12 % Eosinophils (%) (Auto) 1 0-10 % Basophils (%) (Auto) 0 0-10 % Neutrophils # (Auto) 10.3 H 1.8-7.8 X 10^3 Lymphocytes # (Auto) 1.2 1.0-4.0 X 10^3 Monocytes # (Auto) 1.0 0.0-1.0 X 10^3 Eosinophils # (Auto) 0.1 0.0-0.3 10^3/uL Basophils # (Auto) 0.0 0.0-0.1 10^3/uL Sodium Level 134 L 135-145 MMOL/L Potassium Level 4.0 3.6-5.0 MMOL/L Chloride Level 102 98-107 MMOL/L Carbon Dioxide Level 21 21-32 MMOL/L Anion Gap 11 5-14 MMOL/L Blood Urea Nitrogen 5 L 7-18 MG/DL Creatinine 0.77 0.60-1.30 MG/DL Estimat Glomerular Filtration Rate > 60 BUN/Creatinine Ratio 6 Glucose Level 121 H 70-105 MG/DL Calcium Level 9.1 8.5-10.1 MG/DL Corrected Calcium 9.2 8.5-10.1 MG/DL Total Bilirubin 0.5 0.1-1.0 MG/DL Aspartate Amino Transf (AST/SGOT) 19 5-34 U/L Alanine Aminotransferase (ALT/SGPT) 11 0-55 U/L Alkaline Phosphatase 64 40-136 U/L Total Protein 8.1 6.4-8.2 GM/DL Albumin 3.9 3.2-4.5 GM/DL Amylase Level 35 25-125 U/L Lipase 8 8-78 U/L Serum Alcohol < 10 <10 MG/DL My Orders Orders - TUTU BENAVIDES DO Ed Iv/Invasive Line Start (03/05/19 15:24) Urine Bedside (03/05/19 15:24) Alcohol (03/05/19 15:24) Amylase (03/05/19 15:24) Cbc With Automated Diff (03/05/19 15:24) Comprehensive Metabolic Panel (03/05/19 15:24) Drug Screen Stat (Urine) (03/05/19 15:24) Lipase (03/05/19 15:24) Ua Culture If Indicated (03/05/19 15:24) Ct Abd/Pelvis Wo(Kidney Stone) (03/05/19 16:18) Acute Abd Series (03/05/19 16:18) Vital Signs/I&O 03/05/19 15:20 Temp 101.4 Pulse 113 Resp 18 B/P (MAP) 145/110 (122) Pulse Ox 96 O2 Delivery Room Air Diagnostic Imaging Comments ABDOMEN XRAYS--NO ACUTE PROCESS CT ABDOMEN / PELVIS--SIGMOID DIVERTICULITIS WITHOUT PERFORATION OR ABSCESS. PER RADIOLOGIST REPORTS AT 1655 Reviewed: Reviewed by Me Departure Communication (Admissions) 1700--SPOKE WITH DR. AL, WILL SEE PT IN CONSULT. ADMIT TO MEDICINE. 1700--ATTEMPTING TO CONTACT DR. BEAULIEU, NO ANSWER ON CELL 1710--CALLED [facility]--NOT THERE. STILL NO ANSWER ON CELL PHONE Impression Primary Impression: Diverticulitis Additional Impression: Sepsis Disposition: ADMITTED INPATIENT Condition: Stable Admissions Decision to Admit Reason: Admit from ER (General) Decision to Admit/Date: Mar 05, 2019 Time/Decision to Admit Time: 17:00 Departure-Patient Inst. Referrals: NO,LOCAL PHYSICIAN (PCP/Family) Primary Care Physician TUTU BENAVIDES DO Mar 05, 2019 15:40
[2019-03-05 15:48] LABS: BACTERIA,URINE TRACE /HPF; RBC,URINE 0-2 /HPF
[2019-03-05 15:51] LABS: AMPHETAMINE SCREEN, URINE NEGATIVE (NEGATIVE); BARBITURATE SCREEN URINE NEGATIVE (NEGATIVE); BENZODIAZEPINES SCREEN URINE NEGATIVE (NEGATIVE); CANNABINOID SCREEN, URINE NEGATIVE (NEGATIVE); COCAINE SCREEN URINE NEGATIVE (NEGATIVE); METHADONE STAT NEGATIVE (NEGATIVE); METHAMPHETAMINE SCREEN URINE S NEGATIVE (NEGATIVE); OPIATE SCREEN URINE NEGATIVE (NEGATIVE); OXYCODONE STAT NEGATIVE (NEGATIVE); PROPOXYPHENE STAT NEGATIVE (NEGATIVE); TRICYCLIC ANTIDEPRESSANTS SCRE NEGATIVE (NEGATIVE)
[2019-03-05 16:04] LABS: BASOPHILS % (AUTO) 0 % (0-10); EOSINOPHILS # (AUTO) 0.1 10^3/uL (0.0-0.3); EOSINOPHILS % (AUTO) 1 % (0-10); HEMATOCRIT 33 % (35-52); HEMOGLOBIN 10.7 G/DL (11.5-16.0); LYMPHOCYTES # (AUTO) 1.2 X 10^3 (1.0-4.0); LYMPHOCYTES % (AUTO) 10 % (12-44); MEAN CORPUSCULAR HGB CONC 33 G/DL (32-36); MEAN CORPUSCULAR VOLUME 66 FL (80-99); MEAN PLATELET VOLUME 11.1 FL (7.4-10.4); MONOCYTES % (AUTO) 8 % (0-12); NEUTROPHILS # (AUTO) 10.3 X 10^3 (1.8-7.8); NEUTROPHILS % (AUTO) 81 % (42-75); PLATELET COUNT 414 10^3/uL (130-400); RED CELL DISTRIBUTION WIDTH 21.9 % (10.0-14.5); WHITE BLOOD COUNT 12.6 10^3/uL (4.3-11.0)
[2019-03-05 16:05] LABS: MEAN CORPUSCULAR HEMOGLOBIN 21 PG (25-34)
[2019-03-05 16:22] LABS: ALANINE AMINOTRANSFERASE 11 U/L (0-55); ALBUMIN 3.9 GM/DL (3.2-4.5); ALKALINE PHOSPHATASE 64 U/L (40-136); AMYLASE 35 U/L (25-125); BILIRUBIN,TOTAL 0.5 MG/DL (0.1-1.0); BUN/CREATININE RATIO 6; CALCIUM 9.1 MG/DL (8.5-10.1); CARBON DIOXIDE 21 MMOL/L (21-32); CHLORIDE 102 MMOL/L (98-107); CREATININE SERUM 0.77 MG/DL (0.60-1.30); GFR ESTIMATED > 60; GLUCOSE 121 MG/DL (70-105); LIPASE 8 U/L (8-78); SODIUM 134 MMOL/L (135-145); TOTAL PROTEIN 8.1 GM/DL (6.4-8.2)
--- NOTE | 2019-03-05 16:31 | NUR ---
BERTO MCFARLAND admitted to room 408-1, with an admitting diagnosis of DIVERTICULITIS, SEPSIS, on 03/05/19 from ED via STRETCHER, accompanied by ED STAFF. BERTO MCFARLAND introduced to surroundings, call light, bed controls, phone, TV, temperature control, lights, meal times, smoking policy, visitor policy, side rail policy, bathrooms and showers. Patient Rights given to patient in the handbook. BERTO MCFARLAND verbalizes understanding that [facility] is not responsible for the loss or damage to any personal effects or valuables that are kept in the patients possession during their hospitalization. The following Patient Care Plans were discussed with the PATIENT: Discharge Planning, DIVERTICULITIS, SPEPSIS and KNOWLEDGE DEFICIT. BERTO MCFARLAND verbalizes understanding of Interdisciplinary Patient Education. Patient and/or family were informed about the Rapid Response Team and its purpose.
--- NOTE | 2019-03-05 16:43 | Diagnostic Imaging Report ---
PROCEDURE: CT urinary tract, rule out kidney stone. TECHNIQUE: Multiple contiguous axial images were obtained through the abdomen and pelvis without the use of intravenous contrast. Auto Exposure Controls were utilized during the CT exam to meet ALARA standards for radiation dose reduction. INDICATION: Upper abdominal pain. FINDINGS: No comparison available. Limited views of the lower thorax reveal some mild atelectasis in the lung base. Liver is normal. No focal liver lesions are seen. Gallbladder is absent. No biliary ductal dilatation. Pancreas, spleen and adrenal glands are normal. Kidneys are normal. No renal stones are seen. No hydronephrosis. Urinary bladder is normal. Uterus and adnexa are normal. There is moderate diverticulitis of the sigmoid colon with a small amount of adjacent free fluid and extensive fat stranding. No abscess or perforation is seen. No evidence for fistulization. The remaining bowel is normal. No bowel dilatation. No abdominal or pelvic lymphadenopathy. Abdominal aorta is normal in caliber. No suspicious osseous lesions are seen. IMPRESSION: 1. Moderate sigmoid diverticulitis without abscess or perforation. Dictated by: Dictated on workstation # [id number]
--- NOTE | 2019-03-05 16:50 | Diagnostic Imaging Report ---
PATIENT HISTORY: Upper abdominal pain with left-sided abdominal pain and nausea, vomiting and constipation. TECHNIQUE: Frontal view of the chest. Upright and supine frontal views of the abdomen COMPARISON: None FINDINGS: Lung volumes are normal. No focal consolidation is seen. There is no pleural effusion or pneumothorax. The cardiac silhouette is normal in size and contour. The bowel loops are nondistended without evidence of obstruction. No large collection of free air is seen. Cholecystectomy clips are noted. IMPRESSION: 1. No evidence of bowel obstruction or large collection of free air. 2. No acute pulmonary abnormality is seen. Dictated by: Dictated on workstation # [id number]
[2019-03-05] MEDS ORDERED: CIPROFLOXACIN IV 400MG/200ML 200 ML IV ONE (17:15)
[2019-03-05] MEDS ORDERED: KETOROLAC 30 MG/ML VIAL IVP ONE (17:15)
[2019-03-05] MEDS ORDERED: metroNIDAZOLE 500MG/100ML IVPB 100 ML IV ONE (17:15)
[2019-03-05] MEDS ORDERED: ACETAMINOPHEN 500 MG TAB (TYLENOL) PO ONE (17:15)
--- NOTE | 2019-03-05 18:22 | Consultation - Surgery ---
MEGAN MEJIA,MED STUDENT 03/05/19 1822: History of Present Illness History of Present Illness Patient Consulted On(armando/time) 03/05/19 18:00 Date Seen by Provider: Mar 05, 2019 Time Seen by Provider: 18:00 History of Present Illness 39 year old female complaining of LLQ abdominal pain that began 2 days ago and has progressively worsened. The pain is characterized as a dull ache that does not radiate. The pain is improved by laying flat and worsens with movement. She admits associated fever and chills. Denies chest pain. She rates the pain as an 8/10 at this time. No family at bedside. Acute abdomen series and CT abd/pelvis were reviewed and showed moderate sigmoid diverticulitis without abscess or perforation. Allergies and Home Medications Allergies Coded Allergies: Penicillins (Verified Allergy, Unknown, lip swelling, 03/18/18) Home Medications Albuterol Sulfate 2.5 Mg/3 Ml Vial.neb, 2.5 MG IH Q4H PRN for SHORTNESS OF BREATH Prescribed by: YOEL MAKI on 06/28/181750 Prednisone 20 Mg Tab, 40 MG PO DAILY Prescribed by: YOEL MAKI on 06/28/181750 Patient Home Medication List Home Medication List Reviewed: Yes Past Nyjnrfw-Jkluxu-Ydbkpu Hx Patient Social History Alcohol Use: Denies Use Recreational Drug Use: No Smoking Status: Current Everyday Smoker Type Used: Cigarettes 2nd Hand Smoke Exposure: Yes Recent Foreign Travel: No Contact w/Someone Who Travel: No Recent Infectious Disease Expo: No Recent Hopitalizations: No Surgeries History of Surgeries: Yes (HIATAL HERNIA REPAIR) Surgeries: Abdominal (hiatal hernia repair), Gallbladder Respiratory History of Respiratory Disorde: Yes Respiratory Disorders: Asthma Cardiovascular History of Cardiac Disorders: Yes Cardiac Disorders: Hypertension Neurological History of Neurological Disord: No Reproductive System Female Reproductive Disorders: Denies Genitourinary History of Genitourinary Disor: Yes Genitourinary Disorders: Kidney Stones Gastrointestinal History of Gastrointestinal Di: Yes (HIATAL HERNIA REPAIRED) Gastrointestinal Disorders: Hiatal Hernia Musculoskeletal History of Musculoskeletal Dis: Yes Musculoskeletal Disorders: Fractures Endocrine History of Endocrine Disorders: No (OBESITY) HEENT History of HEENT Disorders: No Cancer History of Cancer: No Psychosocial History of Psychiatric Problem: No Behavioral Health Disorders: Anxiety Integumentary History of Skin or Integumenta: No Blood Transfusions History of Blood Disorders: Yes (SICKLE CELL TRAIT) Family Medical History Significant Family History: No Pertinent Family Hx Review of Systems-General Constitutional: chills, fever EENTM: no symptoms reported Respiratory: no symptoms reported Cardiovascular: no symptoms reported; No chest pain Gastrointestinal: abdominal pain (LLQ) Genitourinary: no symptoms reported Musculoskeletal: no symptoms reported Skin: no symptoms reported Psychiatric/Neurological: No Symptoms Reported Physical Exam-General Problems Physical Exam Vital Signs Vital Signs - First Documented 03/05/19 15:20 Temp 101.4 Pulse 113 Resp 18 B/P (MAP) 145/110 (122) Pulse Ox 96 O2 Delivery Room Air Capillary Refill : Less Than 3 Seconds General Appearance: no apparent distress HEENT: PERRL/EOMI, normal ENT inspection Neck: non-tender, full range of motion, supple Respiratory: chest non-tender, no respiratory distress, no accessory muscle use Cardiovascular: regular rate, rhythm, no edema Gastrointestinal: soft, tenderness (LLQ tender to palpation) Rectal: deferred Back: normal inspection, no CVA tenderness Extremities: normal range of motion, normal inspection, no pedal edema Neurologic/Psychiatric: no motor/sensory deficits, alert, normal mood/affect, oriented x 3 Skin: normal color, warm/dry Lymphatic: no adenopathy Data Review Labs Laboratory Tests 03/05/19 15:25: Urine Color YELLOW, Urine Clarity SLIGHTLY CLOUDY, Urine pH 6, Urine Specific [place] 1.020, Urine Protein 1+H, Urine Glucose (UA) NEGATIVE, Urine Ketones NEGATIVE, Urine Nitrite NEGATIVE, Urine Bilirubin NEGATIVE, Urine Urobilinogen 1, Urine Leukocyte Esterase NEGATIVE, Urine RBC (Auto) 2+H, Urine RBC 0-2, Urine WBC NONE, Urine Squamous Epithelial Cells 10-25H, Urine Crystals NONE, Urine Bacteria TRACE, Urine Casts NONE, Urine Mucus LARGEH, Urine Culture Indicated NO, Urine Opiates Screen NEGATIVE, Urine Oxycodone Screen NEGATIVE, Urine Methadone Screen NEGATIVE, Urine Propoxyphene Screen NEGATIVE, Urine Barbiturates Screen NEGATIVE, Ur Tricyclic Antidepressants Screen NEGATIVE, Urine Phencyclidine Screen NEGATIVE, Urine Amphetamines Screen NEGATIVE, Urine Methamphetamines Screen NEGATIVE, Urine Benzodiazepines Screen NEGATIVE, Urine Cocaine Screen NEGATIVE, Urine Cannabinoids Screen NEGATIVE 03/05/19 15:50: White Blood Count 12.6H, Red Blood Count 4.98, Hemoglobin 10.7L, Hematocrit 33L, Mean Corpuscular Volume 66L, Mean Corpuscular Hemoglobin 21L, Mean Corpuscular Hemoglobin Concent 33, Red Cell Distribution Width 21.9H, Platelet Count 414H, Mean Platelet Volume 11.1H, Neutrophils (%) (Auto) 81H, Lymphocytes (%) (Auto) 10L, Monocytes (%) (Auto) 8, Eosinophils (%) (Auto) 1, Basophils (%) (Auto) 0, Neutrophils # (Auto) 10.3H, Lymphocytes # (Auto) 1.2, Monocytes # (Auto) 1.0, Eosinophils # (Auto) 0.1, Basophils # (Auto) 0.0, Sodium Level 134L, Potassium Level 4.0, Chloride Level 102, Carbon Dioxide Level 21, Anion Gap 11, Blood Urea Nitrogen 5L, Creatinine 0.77, Estimat Glomerular Filtration Rate > 60, BUN/Creatinine Ratio 6, Glucose Level 121H, Calcium Level 9.1, Corrected Calcium 9.2, Total Bilirubin 0.5, Aspartate Amino Transf (AST/SGOT) 19, Alanine Aminotransferase (ALT/SGPT) 11, Alkaline Phosphatase 64, Total Protein 8.1, Albumin 3.9, Amylase Level 35, Lipase 8, Serum Alcohol < 10 Assessment/Plan Assessment/Plan Assessment/Plan LLQ abdominal pain diverticulitis without perforation or abscess Begin ciprofloxacin and metronidazole for diverticulitis. Continue IV fluids and conservative management. No surgical intervention indicated at this time. EZEQUIEL AL DO 03/05/192112: History of Present Illness History of Present Illness History of Present Illness consult requested by Dr. BEAULIEU for diverticulitis Patient seen and evaluated with medical student History of present illness as noted above. Intensity would fluctuate but fairly constant pain. Allergies and Home Medications Allergies Coded Allergies: Penicillins (Verified Allergy, Unknown, lip swelling, 03/18/18) Home Medications Albuterol Sulfate 2.5 Mg/3 Ml Vial.neb, 2.5 MG IH Q4H PRN for SHORTNESS OF BREATH Prescribed by: YOEL MAKI on 06/28/181750 Prednisone 20 Mg Tab, 40 MG PO DAILY Prescribed by: YOEL MAKI on 06/28/181750 Patient Home Medication List Home Medication List Reviewed: Yes Past Dylyclt-Igvund-Ojwwkk Hx Patient Social History Alcohol Use: Denies Use Smoking Status: Current Everyday Smoker Surgeries History of Surgeries: Yes Family Medical History Significant Family History: No Pertinent Family Hx Review of Systems-General Gastrointestinal: see HPI Physical Exam-General Problems Physical Exam General Appearance: no apparent distress (lying in bed) Gastrointestinal: tenderness (LLQ tender to palpation) Assessment/Plan Assessment/Plan Assessment/Plan patient has never had colonoscopy. Once results wouldn't recommend outpatient colonoscopy 6 weeks after resolution. Supervisory-Addendum Brief Verification & Attestation Time: Verification & Attestat.: 21:12 Participated in pt care: history, MDM, physical Personally performed: exam, history, MDM, supervision of care Care discussed with: Medical Student Procedures: n/a Results interpretation: Verified all documentation Verification and Attestation of Medical Student E/M Service A medical student performed and documented this service in my presence. I reviewed and verified all information documented by the medical student and made modifications to such information, when appropriate. I personally performed the physical exam and medical decision making. Ezequiel Al, Mar 05, 2019,21:12 MEGAN MEJIA,MED STUDENT Mar 05, 2019 18:22 EZEQUIEL AL DO Mar 05, 2019 21:13
[2019-03-05] MEDS ORDERED: ACETAMINOPHEN 500 MG TAB (TYLENOL) PO PRN (19:00)
[2019-03-05] MEDS ORDERED: CATHETER FLUSH 10 ML SYR IV PRN (19:00)
[2019-03-05] MEDS: D5 1/2 NS W/KCL 20 MEQ/L 1,000 ML IV SCH (19:29)
[2019-03-05] MEDS: CIPROFLOXACIN IV 400MG/200ML 200 ML IV SCH (19:30)
[2019-03-05 20:00] VITALS: BP 119/74
[2019-03-05] MEDS: NICOTINE 21 MG (NICODERM) PATCH TD SCH (20:09)
[2019-03-05 23:32] VITALS: BP 118/70
[2019-03-05] MEDS: metroNIDAZOLE 500MG/100ML IVPB 100 ML IV SCH (23:44)
[2019-03-05] MEDS: fentaNYL INJECTION 100 MCG/2 ML AMP IV PRN (23:44)
[2019-03-06] VITALS: BP 129/67
[2019-03-06] MEDS: D5 1/2 NS W/KCL 20 MEQ/L 1,000 ML IV SCH ×5 (03:24→21:13)
[2019-03-06 04:00] VITALS: BP 123/74
[2019-03-06] MEDS: KETOROLAC 30 MG/ML VIAL IV PRN ×3 (04:12→21:02)
[2019-03-06] MEDS ORDERED: CIPROFLOXACIN IV 400MG/200ML 200 ML IV SCH (05:00)
[2019-03-06] MEDS: metroNIDAZOLE 500MG/100ML IVPB 100 ML IV SCH ×4 (05:08→23:30)
[2019-03-06 05:40] LABS: BASOPHILS % (AUTO) 0 % (0-10); EOSINOPHILS # (AUTO) 0.2 10^3/uL (0.0-0.3); EOSINOPHILS % (AUTO) 2 % (0-10); HEMATOCRIT 29 % (35-52); HEMOGLOBIN 9.3 G/DL (11.5-16.0); LYMPHOCYTES # (AUTO) 1.1 X 10^3 (1.0-4.0); LYMPHOCYTES % (AUTO) 13 % (12-44); MEAN CORPUSCULAR HEMOGLOBIN 21 PG (25-34); MEAN CORPUSCULAR HGB CONC 32 G/DL (32-36); MEAN CORPUSCULAR VOLUME 67 FL (80-99); MONOCYTES # (AUTO) 0.9 X 10^3 (0.0-1.0); MONOCYTES % (AUTO) 10 % (0-12); NEUTROPHILS # (AUTO) 6.6 X 10^3 (1.8-7.8); NEUTROPHILS % (AUTO) 75 % (42-75); PLATELET COUNT 411 10^3/uL (130-400); RED CELL DISTRIBUTION WIDTH 20.8 % (10.0-14.5); WHITE BLOOD COUNT 8.9 10^3/uL (4.3-11.0)
[2019-03-06] MEDS: fentaNYL INJECTION 100 MCG/2 ML AMP IV PRN ×4 (05:51→23:20)
[2019-03-06 06:01] LABS: ALANINE AMINOTRANSFERASE 11 U/L (0-55); ALBUMIN 3.5 GM/DL (3.2-4.5); ALKALINE PHOSPHATASE 59 U/L (40-136); BILIRUBIN,TOTAL 0.6 MG/DL (0.1-1.0); BUN/CREATININE RATIO 6; CALCIUM 8.7 MG/DL (8.5-10.1); CARBON DIOXIDE 21 MMOL/L (21-32); CHLORIDE 104 MMOL/L (98-107); CREATININE SERUM 0.78 MG/DL (0.60-1.30); GFR ESTIMATED > 60; GLUCOSE 117 MG/DL (70-105); POTASSIUM 3.4 MMOL/L (3.6-5.0); SODIUM 137 MMOL/L (135-145); TOTAL PROTEIN 7.3 GM/DL (6.4-8.2)
[2019-03-06] MEDS: CIPROFLOXACIN IV 400MG/200ML 200 ML IV SCH ×2 (06:25→18:31)
[2019-03-06 07:18] VITALS: BP 121/70
[2019-03-06] MEDS: NICOTINE PATCH REMOVAL TP SCH (08:26)
[2019-03-06] MEDS: NICOTINE 21 MG (NICODERM) PATCH TD SCH (08:27)
--- NOTE | 2019-03-06 10:30 | Progress Note - Surgery ---
MEGAN MEJIA,MED STUDENT 03/06/19 1030: Subjective Date Seen by a Provider: Mar 06, 2019 Time Seen by a Provider: 09:40 Subjective/Events-last exam Patient complains of persistent LLQ abdominal pain but states that fever has improved. She has not had a bowel movement or flatus yet today. Denies fever, chills, or shortness of breath. No family at bedside. Review of Systems General: No Chills Gastrointestinal: Abdominal Pain; No: Nausea, Vomiting Objective Exam Vital Signs Date Time Temp Pulse Resp B/P (MAP) Pulse Ox O2 Delivery O2 Flow Rate FiO2 03/06/19 08:00 Room Air 03/06/19 07:18 98.4 87 20 121/70 (87) 95 Room Air 03/06/19 04:00 98.1 89 20 123/74 (90) 94 Room Air 03/06/19 00:00 98.8 88 20 129/67 (87) 95 Room Air 03/05/19 20:00 98.3 100 18 119/74 (89) 99 Room Air 03/05/19 20:00 Room Air 03/05/19 20:00 98.6 03/05/19 18:45 96 Room Air 03/05/19 18:42 100.0 96 18 125/93 (104) 99 Room Air 03/05/19 15:20 101.4 113 18 145/110 (122) 96 Room Air I & O 03/06/19 07:00 Intake Total 2390 ml Output Total 550 ml Balance 1840 ml Capillary Refill : Less Than 3 Seconds General Appearance: No Apparent Distress HEENT: PERRL/EOMI, Normal ENT Inspection Neck: Full Range of Motion, Normal Inspection, Non Tender, Supple Respiratory: Chest Non Tender, No Accessory Muscle Use, No Respiratory Distress Cardiovascular: Regular Rate, Rhythm, No Edema Gastrointestinal: tenderness (LLQ tender to palpation) Extremity: Normal Range of Motion, Non Tender Neurologic/Psychiatric: Alert, Oriented x3, No Motor/Sensory Deficits, Normal Mood/Affect Skin: Normal Color, Warm/Dry Lymphatic: No Adenopathy Results Lab Laboratory Tests 03/05/19 15:25: Urine Color YELLOW, Urine Clarity SLIGHTLY CLOUDY, Urine pH 6, Urine Specific [place] 1.020, Urine Protein 1+H, Urine Glucose (UA) NEGATIVE, Urine Ketones NEGATIVE, Urine Nitrite NEGATIVE, Urine Bilirubin NEGATIVE, Urine Urobilinogen 1, Urine Leukocyte Esterase NEGATIVE, Urine RBC (Auto) 2+H, Urine RBC 0-2, Urine WBC NONE, Urine Squamous Epithelial Cells 10-25H, Urine Crystals NONE, Urine Bacteria TRACE, Urine Casts NONE, Urine Mucus LARGEH, Urine Culture Indicated NO, Urine Opiates Screen NEGATIVE, Urine Oxycodone Screen NEGATIVE, Urine Methadone Screen NEGATIVE, Urine Propoxyphene Screen NEGATIVE, Urine Barbiturates Screen NEGATIVE, Ur Tricyclic Antidepressants Screen NEGATIVE, Urine Phencyclidine Screen NEGATIVE, Urine Amphetamines Screen NEGATIVE, Urine Methamphetamines Screen NEGATIVE, Urine Benzodiazepines Screen NEGATIVE, Urine Cocaine Screen NEGATIVE, Urine Cannabinoids Screen NEGATIVE 03/05/19 15:50: White Blood Count 12.6H, Red Blood Count 4.98, Hemoglobin 10.7L, Hematocrit 33L, Mean Corpuscular Volume 66L, Mean Corpuscular Hemoglobin 21L, Mean Corpuscular Hemoglobin Concent 33, Red Cell Distribution Width 21.9H, Platelet Count 414H, M [place]ose Platelet Volume 11.1H, Neutrophils (%) (Auto) 81H, Lymphocytes (%) (Auto) 10L, Monocytes (%) (Auto) 8, Eosinophils (%) (Auto) 1, Basophils (%) (Auto) 0, Neutrophils # (Auto) 10.3H, Lymphocytes # (Auto) 1.2, Monocytes # (Auto) 1.0, Eosinophils # (Auto) 0.1, Basophils # (Auto) 0.0, Sodium Level 134L, Potassium Level 4.0, Chloride Level 102, Carbon Dioxide Level 21, Anion Gap 11, Blood Urea Nitrogen 5L, Creatinine 0.77, Estimat Glomerular Filtration Rate > 60, BUN/Creatinine Ratio 6, Glucose Level 121H, Calcium Level 9.1, Corrected Calcium 9.2, Total Bilirubin 0.5, Aspartate Amino Transf (AST/SGOT) 19, Alanine Aminotransferase (ALT/SGPT) 11, Alkaline Phosphatase 64, Total Protein 8.1, Albumin 3.9, Amylase Level 35, Lipase 8, Serum Alcohol < 10 03/06/19 05:10: White Blood Count 8.9, Red Blood Count 4.39, Hemoglobin 9.3L, Hematocrit 29L, Mean Corpuscular Volume 67L, Mean Corpuscular Hemoglobin 21L, Mean Corpuscular Hemoglobin Concent 32, Red Cell Distribution Width 20.8H, Platelet Count 411H, Mean Platelet Volume 11.0H, Neutrophils (%) (Auto) 75, Lymphocytes (%) (Auto) 13, Monocytes (%) (Auto) 10, Eosinophils (%) (Auto) 2, Basophils (%) (Auto) 0, Neutrophils # (Auto) 6.6, Lymphocytes # (Auto) 1.1, Monocytes # (Auto) 0.9, Eosinophils # (Auto) 0.2, Basophils # (Auto) 0.0, Sodium Level 137, Potassium Level 3.4L, Chloride Level 104, Carbon Dioxide Level 21, Anion Gap 12, Blood Urea Nitrogen 5L, Creatinine 0.78, Estimat Glomerular Filtration Rate > 60, BUN/Creatinine Ratio 6, Glucose Level 117H, Calcium Level 8.7, Corrected Calcium 9.1, Total Bilirubin 0.6, Aspartate Amino Transf (AST/SGOT) 9, Alanine Aminotransferase (ALT/SGPT) 11, Alkaline Phosphatase 59, Total Protein 7.3, Albumin 3.5 Assessment/Plan Assessment/Plan Assessment/Plan LLQ Abdominal pain Diverticulitis Continue NPO for bowel rest. Conservative management. No surgical intervention needed at this time. Patient has never had colonoscopy. Once resolves would recommend outpatient colonoscopy 6 weeks after resolution. Clinical Quality Measures DVT/VTE Risk/Contraindication: Risk Factor Score Per Nursin RFS Level Per Nursing on Admit: 2=Moderate EZEQUIEL RODRIGUEZ DO 03/06/19 1048: Subjective Subjective/Events-last exam Still with llq about same. NPO. IV Hydration. No new complaints. WBC down Objective Exam Gastrointestinal: tenderness (LLQ tender to palpation) Assessment/Plan Assessment/Plan Assessment/Plan Continue abx repeat labs in am Supervisory-Addendum Brief Verification & Attestation Time: Verification & Attestat.: 10:48 Participated in pt care: history, MDM, physical Personally performed: exam, history, MDM, supervision of care Care discussed with: Medical Student Procedures: n/a Results interpretation: Verified all documentation Verification and Attestation of Medical Student E/M Service A medical student performed and documented this service in my presence. I reviewed and verified all information documented by the medical student and made modifications to such information, when appropriate. I personally performed the physical exam and medical decision making. Ezequiel Rodriguez, Mar 06, 2019,10:48 MEGAN MEJIAMED STUDENT Mar 06, 2019 10:30 EZEQUIEL RODRIGUEZ DO Mar 06, 2019 10:48
--- NOTE | 2019-03-06 10:52 | NUR ---
Contacting Dr. Rodriguez at 0900 regarding pt NPO status and if he would like to put in clear liquid order. requests for patient to stay NPO.
[2019-03-06 11:18] VITALS: BP 137/83
--- NOTE | 2019-03-06 12:42 | History & Physical-Hospitalist ---
History of Present Illness HPI/Chief Complaint The patient is a 39-year-old black female who was admitted after she presented to the emergency room with complaints of left lower quadrant abdominal pain. Workup there found her to have a temperature of 101.4 a white count of 12,[address] scan was positive for diverticulitis in the left distal left colon. She was not previously aware of having diverticula he. She reported that the pain had begun 2 or 3 days prior to admission and had increased in intensity. She then became febrile and nauseated. Date Seen 03/06/19 Time Seen by a Provider: 12:38 Attending Physician Samuel Beaulieu MD PCP Center/[facility] Referring Physician Date of Admission Mar 05, 2019 at 17:00 Home Medications & Allergies Home Medications Reviewed patient Home Medication Reconciliation performed by pharmacy medication reconciliations indoor plant technician and/or nursing. Patients Allergies have been reviewed. Allergies Allergies Coded Allergies Penicillins (Verified Allergy, Unknown, lip swelling, 03/18/18) Past Pwmelyz-Hogfkq-Roaarp Hx Past Med/Social Hx: Reviewed Nursing Past Med/Soc Hx Patient Social History Alcohol Use: Denies Use Recreational Drug Use: No Smoking Status: Current Everyday Smoker Type Used: Cigarettes 2nd Hand Smoke Exposure: Yes Physical Abuse Screen: No Sexual Abuse: No Recent Foreign Travel: No Contact w/other who traveled: No Recent Hopitalizations: No Recent Infectious Disease Expo: No Immunizations Up To Date Pediatric: Yes Seasonal Allergies Seasonal Allergies: Yes Past Medical History Surgeries: Abdominal (hiatal hernia repair), Gallbladder Currently Using CPAP: No Currently Using BIPAP: No Cardiac: Hypertension Female Reproductive Disorders: Denies Genitourinary: Kidney Stones Gastrointestinal: Diverticulosis, Hiatal Hernia Musculoskeletal: Fractures Psychosocial: Anxiety History of Blood Disorders: Yes (SICKLE CELL TRAIT) Family History Alzheimer's disease MATERNAL GRANDMOTHER Diabetes mellitus 19 FATHER Hypertension 19 FATHER 19 MOTHER Myocardial infarction 19 MOTHER Neoplasm PATERNAL GRANDMOTHER (COLON CANCER) No Pertinent Family Hx Review of Systems Constitutional: see HPI EENTM: no symptoms reported Respiratory: no symptoms reported Cardiovascular: no symptoms reported Gastrointestinal: see HPI Genitourinary: no symptoms reported Musculoskeletal: no symptoms reported Skin: no symptoms reported Psychiatric/Neurological: No Symptoms Reported Physical Exam Physical Exam Vital Signs Capillary Refill : Less Than 3 Seconds Height, Weight, BMI Height: 5'7.00" Weight: 285lbs. 7.0oz. [id number]; 44.7 BMI Method:Stated General Appearance: Other (large, pleasant black female) Eyes: Bilateral Eye Normal Inspection HEENT: PERRL/EOMI, TMs Normal, Normal ENT Inspection, Pharynx Normal, Moist Mucous Membranes Neck: Full Range of Motion, Normal Inspection, Non Tender Respiratory: Chest Non Tender, Lungs Clear, Normal Breath Sounds, No Accessory Muscle Use, No Respiratory Distress Cardiovascular: Regular Rate, Rhythm, No Edema, No Gallop, No JVD, No Murmur, Normal Peripheral Pulses Gastrointestinal: Normal Bowel Sounds, Other (tender to deep palpation in the left lower quadrant) Back: Normal Inspection Extremity: Normal Capillary Refill Neurologic/Psychiatric: Alert, Oriented x3, No Motor/Sensory Deficits, Normal Mood/Affect Skin: Normal Color, Warm/Dry Lymphatic: No Adenopathy Results Results/Procedures Labs Patient resulted labs reviewed. Assessment/Plan Admission Diagnosis Acute diverticulitis. 2.morbid obesity Admission Status: Inpatient Order (span 2 midnights) Reason for Inpatient Admission: Treatment requires more than 2 midnights Clinical Quality Measures DVT/VTE Risk/Contraindication: Risk Factor Score Per Nursin RFS Level Per Nursing on Admit: 2=Moderate SAMUEL BEAULIEU MD Mar 06, 2019 12:42
[2019-03-06 15:33] VITALS: BP 123/67
[2019-03-06 20:47] VITALS: BP 125/83
--- NOTE | 2019-03-06 21:14 | NUR ---
THIS RN CONTACTED DR. BEAULIEU BECAUSE PT COMPLAINED OF COUGHING. UPON AUSCULTATION ON LUNGS, CRACKLES NOTED BILAT. THROUGHOUT. THIS RN RECEIVED ORDERS TO DECREASE MAINTENANCE FLUIDS TO 75 ML/HR.
[2019-03-07 00:08] VITALS: BP 122/80
[2019-03-07] MEDS: D5 1/2 NS W/KCL 20 MEQ/L 1,000 ML IV SCH ×2 (03:13→22:01)
[2019-03-07 04:50] VITALS: BP 126/84
[2019-03-07] MEDS: metroNIDAZOLE 500MG/100ML IVPB 100 ML IV SCH ×4 (05:04→23:34)
[2019-03-07] MEDS: fentaNYL INJECTION 100 MCG/2 ML AMP IV PRN ×4 (05:35→22:06)
[2019-03-07 05:44] LABS: HEMOGLOBIN 9.3 G/DL (11.5-16.0); MEAN PLATELET VOLUME 10.7 FL (7.4-10.4); RED CELL DISTRIBUTION WIDTH 20.9 % (10.0-14.5); WHITE BLOOD COUNT 6.6 10^3/uL (4.3-11.0)
[2019-03-07 06:06] LABS: BUN/CREATININE RATIO 7; CALCIUM 8.8 MG/DL (8.5-10.1); CARBON DIOXIDE 22 MMOL/L (21-32); CHLORIDE 106 MMOL/L (98-107); CREATININE SERUM 0.74 MG/DL (0.60-1.30); GFR ESTIMATED > 60; GLUCOSE 99 MG/DL (70-105); MAGNESIUM 1.7 MG/DL (1.8-2.4); POTASSIUM 3.6 MMOL/L (3.6-5.0); SODIUM 139 MMOL/L (135-145)
[2019-03-07] MEDS: CIPROFLOXACIN IV 400MG/200ML 200 ML IV SCH ×2 (06:24→18:28)
[2019-03-07 07:22] VITALS: BP 144/90
[2019-03-07] MEDS: NICOTINE 21 MG (NICODERM) PATCH TD SCH (08:37)
[2019-03-07] MEDS: NICOTINE PATCH REMOVAL TP SCH (08:37)
[2019-03-07] MEDS: KETOROLAC 30 MG/ML VIAL IV PRN ×2 (08:41→19:44)
--- NOTE | 2019-03-07 10:29 | Progress Note - Hospitalist ---
Progress Note Progress Notes/Assess & Plan Date Seen 03/07/19 Time Seen by Provider: 10:27 Assessment & Plan The patient reports that she continues to have significant left lower quadrant pain. She is afebrile and her vital signs are stable. White blood count is 6000. Physical exam: She was dozing when I entered the room. Lungs were clear to auscultation. CV is regular without murmur. She evinced significant pain to p alpation. No guarding was recognized. Impression: Sigmoid diverticulitis. Evidence of healing by virtue of white blood count. She is still not ready for oral feeding. RUFINO BEAULIEU MD Mar 07, 2019 10:29
[2019-03-07 11:22] VITALS: BP 120/84
--- NOTE | 2019-03-07 13:48 | Progress Note - Surgery ---
JACKIEMEGAN,MED STUDENT 03/07/19 1348: Subjective Date Seen by a Provider: Mar 07, 2019 Time Seen by a Provider: 10:49 Subjective/Events-last exam Patient states that pain has mildly improved but still complaining of some LLQ abdominal pain. The pain improves with pain medication and worsens with movement. No bowel movement yet, but patient states she passed flatus last night. Denies nausea or vomiting. Friend at bedside. Review of Systems General: No Chills Cardiovascular: No: Chest Pain Gastrointestinal: Abdominal Pain; No: Nausea, Vomiting Objective Exam Vital Signs Date Time Temp Pulse Resp B/P (MAP) Pulse Ox O2 Delivery O2 Flow Rate FiO2 03/07/19 11:22 97.9 89 18 120/84 (96) 96 Room Air 03/07/19 08:00 Room Air 03/07/19 07:22 97.8 91 22 144/90 (108) 95 Room Air 03/07/19 04:50 97.7 98 18 126/84 (98) 98 Room Air 03/07/19 00:08 98.4 92 18 122/80 (94) 96 Room Air 03/06/19 20:47 98.3 92 18 125/83 (97) 100 Room Air 03/06/19 20:00 Room Air 03/06/19 15:33 98.0 83 18 123/67 (85) 98 Room Air I & O 03/07/19 07:00 Intake Total 2086 ml Output Total 700 ml Balance 1386 ml Capillary Refill : Less Than 3 Seconds General Appearance: No Apparent Distress HEENT: PERRL/EOMI, Normal ENT Inspection, Pharynx Normal, Moist Mucous Membranes Neck: Full Range of Motion, Normal Inspection, Non Tender, Supple Respiratory: Chest Non Tender, No Accessory Muscle Use, No Respiratory Distress Cardiovascular: Regular Rate, Rhythm, No Edema, Normal Peripheral Pulses Gastrointestinal: soft, tenderness (mildly tender LLQ) Extremity: Normal Capillary Refill Neurologic/Psychiatric: Alert, Oriented x3, No Motor/Sensory Deficits, Normal Mood/Affect Skin: Normal Color, Warm/Dry Lymphatic: No Adenopathy Results Lab Laboratory Tests 03/07/19 05:28: White Blood Count 6.6, Red Blood Count 4.37, Hemoglobin 9.3L, Hematocrit 30L, Mean Corpuscular Volume 68L, Mean Corpuscular Hemoglobin 21L, Mean Corpuscular Hemoglobin Concent 32, Red Cell Distribution Width 20.9H, Platelet Count 403H, Mean Platelet Volume 10.7H, Sodium Level 139, Potassium Level 3.6, Chloride Level 106, Carbon Dioxide Level 22, Anion Gap 11, Blood Urea Nitrogen 5L, Creatinine 0.74, Estimat Glomerular Filtration Rate > 60, BUN/Creatinine Ratio 7, Glucose Level 99, Calcium Level 8.8, Magnesium Level 1.7L Assessment/Plan Assessment/Plan Assessment/Plan LLQ abdominal pain Diverticulitis Continue abx repeat labs in am No surgical intervention needed at this time Pain well controlled Patient has never had colonoscopy. Once resolves would recommend outpatient colonoscopy 6 weeks after resolution. Clinical Quality Measures DVT/VTE Risk/Contraindication: Risk Factor Score Per Nursin RFS Level Per Nursing on Admit: 2=Moderate ANSELMO RODRIGUEZ DO 03/07/19 1447: Subjective Subjective/Events-last exam LLQ abd pain still, slightly better. No n/v fever sweats chills shortness of breath or chest pain tolerating some liquids. Objective Exam Gastrointestinal: tenderness (mildly tender LLQ) Assessment/Plan Assessment/Plan Assessment/Plan as above Supervisory-Addendum Brief Verification & Attestation Time: Verification & Attestat.: 14:47 Participated in pt care: history, MDM, physical Personally performed: exam, history, MDM, supervision of care Care discussed with: Medical Student Procedures: n/a Results interpretation: Verified all documentation `Verification and Attestation of Medical Student E/M Service A medical student performed and documented this service in my presence. I reviewed and verified all information documented by the medical student and made modifications to such information, when appropriate. I personally performed the physical exam and medical decision making. Anselmo Rodriguez, Mar 07, 2019,14:47 MEGAN MEJIA,MED STUDENT Mar 07, 2019 13:48 ANSELMO RODRIGUEZ DO Mar 07, 2019 14:47
[2019-03-07 15:31] VITALS: BP 109/57
[2019-03-07 20:21] VITALS: BP 142/86
[2019-03-08] VITALS: BP 118/60
[2019-03-08] MEDS: fentaNYL INJECTION 100 MCG/2 ML AMP IV PRN ×3 (02:18→09:41)
--- NOTE | 2019-03-08 02:28 | NUR ---
DR. BEAULIEU NOTIFIED OF PT COMPLAINTS OF DIFFICULTY BREATHING, WET LUNG SOUNDS, AND PT REQUESTS FOR STOOL SOFTENER. NEW ORDERS RECEIVED.
[2019-03-08] MEDS ORDERED: FUROSEMIDE 40 MG/4 ML INJ (LASIX) IVP ONE (02:45)
[2019-03-08] MEDS ORDERED: POLYETHYLENE GLYCOL 17 GM (MIRALAX) PACK PO ONE (02:45)
[2019-03-08] MEDS: D5 1/2 NS W/KCL 20 MEQ/L 1,000 ML IV SCH (02:47)
[2019-03-08 04:00] VITALS: BP 107/62
[2019-03-08 05:27] LABS: HEMOGLOBIN 9.9 G/DL (11.5-16.0); MEAN PLATELET VOLUME 10.9 FL (7.4-10.4); RED CELL DISTRIBUTION WIDTH 21.2 % (10.0-14.5); WHITE BLOOD COUNT 6.3 10^3/uL (4.3-11.0)
[2019-03-08 05:42] LABS: BUN/CREATININE RATIO 6; CALCIUM 9.3 MG/DL (8.5-10.1); CARBON DIOXIDE 22 MMOL/L (21-32); CHLORIDE 103 MMOL/L (98-107); CREATININE SERUM 0.81 MG/DL (0.60-1.30); GFR ESTIMATED > 60; GLUCOSE 98 MG/DL (70-105); MAGNESIUM 1.8 MG/DL (1.8-2.4); POTASSIUM 3.5 MMOL/L (3.6-5.0); SODIUM 138 MMOL/L (135-145)
--- NOTE | 2019-03-08 05:54 | NUR ---
PT REPORTS BEING ABLE TO BREATH EASIER SINCE RECEIVING LASIX.
[2019-03-08] MEDS: metroNIDAZOLE 500MG/100ML IVPB 100 ML IV SCH ×4 (06:14→23:50)
[2019-03-08] MEDS: KETOROLAC 30 MG/ML VIAL IV PRN ×2 (06:18→20:49)
[2019-03-08] MEDS: CIPROFLOXACIN IV 400MG/200ML 200 ML IV SCH ×2 (07:21→19:20)
[2019-03-08] MEDS ORDERED: MIRT15TA3 PO (07:51)
[2019-03-08] MEDS ORDERED: ALB0.5V INH (07:52)
[2019-03-08] MEDS ORDERED: IBUP-2055 PO (07:55)
[2019-03-08] MEDS ORDERED: ESCI20TA PO (07:55)
[2019-03-08] MEDS ORDERED: MULT-436 PO (07:55)
[2019-03-08] MEDS ORDERED: RT-ALBUINH IH (07:55)
[2019-03-08] MEDS ORDERED: LORA10TA7 PO (07:55)
--- NOTE | 2019-03-08 08:00 | Progress Note - Surgery ---
MEGAN MEJIA,MED STUDENT 03/08/19 0800: Subjective Date Seen by a Provider: Mar 08, 2019 Time Seen by a Provider: 06:58 Subjective/Events-last exam Patient states that her pain has improved today. Tolerating clear liquid diet and was given stool softeners yesterday. She has not had a bowel movement. She admits to having some trouble breathing last night which has improved on lasix. Denies fever, chills, or chest pain. Review of Systems General: No Chills Cardiovascular: No: Chest Pain Gastrointestinal: No: Nausea, Vomiting Objective Exam Vital Signs Date Time Temp Pulse Resp B/P (MAP) Pulse Ox O2 Delivery O2 Flow Rate FiO2 03/08/19 04:00 98.5 82 20 107/62 (77) 95 Room Air 03/08/19 00:00 99.1 82 20 118/60 (79) 94 Room Air 03/07/19 20:21 98.9 86 18 142/86 (104) 100 Room Air 03/07/19 20:00 Room Air 03/07/19 15:31 97.8 85 18 109/57 (74) 98 Room Air 03/07/19 11:22 97.9 89 18 120/84 (96) 96 Room Air 03/07/19 08:00 Room Air I & O 03/08/19 07:00 Intake Total 2975 ml Output Total 2010 ml Balance 965 ml Capillary Refill : Less Than 3 Seconds General Appearance: No Apparent Distress HEENT: PERRL/EOMI, Normal ENT Inspection, Pharynx Normal, Moist Mucous Membranes Neck: Full Range of Motion, Normal Inspection, Non Tender, Supple Respiratory: Chest Non Tender, No Accessory Muscle Use, No Respiratory Distress Cardiovascular: Regular Rate, Rhythm, No Edema, Normal Peripheral Pulses Gastrointestinal: tenderness (mildly tender LLQ, improved since yesterday) Extremity: Normal Capillary Refill Neurologic/Psychiatric: Alert, Oriented x3, No Motor/Sensory Deficits, Normal Mood/Affect Skin: Normal Color, Warm/Dry Lymphatic: No Adenopathy Results Lab Laboratory Tests 03/08/19 04:45: White Blood Count 6.3, Red Blood Count 4.72, Hemoglobin 9.9L, Hematocrit 31L, Mean Corpuscular Volume 66L, Mean Corpuscular Hemoglobin 21L, Mean Corpuscular Hemoglobin Concent 32, Red Cell Distribution Width 21.2H, Platelet Count 507H, Mean Platelet Volume 10.9H, Sodium Level 138, Potassium Level 3.5L, Chloride Level 103, Carbon Dioxide Level 22, Anion Gap 13, Blood Urea Nitrogen 5L, Creatinine 0.81, Estimat Glomerular Filtration Rate > 60, BUN/Creatinine Ratio 6, Glucose Level 98, Calcium Level 9.3, Magnesium Level 1.8 Assessment/Plan Assessment/Plan Assessment/Plan LLQ abdominal pain Diverticulitis Continue abx No surgical intervention needed at this time Pain well controlled Patient has never had colonoscopy. Once resolves would recommend outpatient colonoscopy 6 weeks after resolution. Clinical Quality Measures DVT/VTE Risk/Contraindication: Risk Factor Score Per Nursin RFS Level Per Nursing on Admit: 2=Moderate EZEQUIEL RODRIGUEZ DO 03/08/19 0924: Subjective Subjective/Events-last exam States pain can still get up to a 7/10 at times but overall continues to improve. Had shortness of air last night which has resolved. Tolerating liquids. Denies n/v fever sweats chills shortness of breath or chest pain at this time. Objective Exam Gastrointestinal: tenderness (mildly tender LLQ, improved slightly) Assessment/Plan Assessment/Plan Assessment/Plan Slightly improved today, would continue clear liquids, could possibly go home today or tomorrow, if feels better later today. Convert to oral abx if dc'd home. Supervisory-Addendum Brief Verification & Attestation Time: Verification & Attestat.: 09:24 Participated in pt care: history, MDM, physical Personally performed: exam, history, MDM, supervision of care Care discussed with: Medical Student Procedures: n/a Results interpretation: Verified all documentation Verification and Attestation of Medical Student E/M Service A medical student performed and documented this service in my presence. I reviewed and verified all information documented by the medical student and made modifications to such information, when appropriate. I personally performed the physical exam and medical decision making. Ezequiel Rodriguez, Mar 08, 2019,09:24 MEGAN MEJIA,MED STUDENT Mar 08, 2019 08:00 EZEQUIEL RODRIGUEZ DO Mar 08, 2019 09:24
[2019-03-08 08:01] VITALS: BP 106/75
[2019-03-08] MEDS: NICOTINE PATCH REMOVAL TP SCH (08:10)
[2019-03-08] MEDS: NICOTINE 21 MG (NICODERM) PATCH TD SCH (08:15)
[2019-03-08] MEDS ORDERED: FLUT1DIS26 IH (08:17)
--- NOTE | 2019-03-08 10:02 | Physician Query Clarification ---
PQ-Uncertain Diagnosis Admission/Discharge Admission Date: Mar 05, 2019 at 17:00 Discharge Date: The medical record reflects the following clinical scenario: History/Risk Factors: Acute sigmoid diverticulitis Clinical Findings: T- 101.4, Pulse 113, Resp 18, BP 145/110. WBC-12.6 -Sepsis documented by Dr. Iverson-ED physician. Treatment: IV Ciprofloxacin Question: Is Sepsis a clinically valid diagnosis? Sepsis was documented in the ED record with no further documentation in the medical record. Please document a response in Progress Note or Discharge Summary. 1. Yes, clinically valid, condition resolved. 2. No, condition ruled out. 3. Other, with explanation of clinical findings. 4. Undetermined, no explanation for clinical findings. PHYSICIAN RESPONSE Diagnosis clinically valid: Yes, Conditon resolved (from numbers patient meets criteria for sepsis with acute diverticulitis) Please remember a lack of response to the above will prompt a phone page by Paige AGOSTO/Coding staff. In responding to this query, please exercise your independent professional judgment. The purpose of this communication is to more accurately reflect the complexity of your patients condition. The fact that a question is asked does not imply that any particular answer is desired or expected. Thank you for your timely response to this clarification. Requestors name: Minerva oLndon [facility] Phone # ext [phone] or [phone] THIS PHYSICIAN QUERY FORM IS A PERMANENT PART OF THE MEDICAL RECORD MINERVA LONDON Mar 08, 2019 10:02 EZEQUIEL AL DO Mar 22, 2019 10:40
--- NOTE | 2019-03-08 10:50 | NUR ---
SPOKE WITH PT, ALSO WENT THRU EXT MED HISTORY AND SPOKE WITH TUTU FROM [facility] TO COMPLETE THE MED REC. 08-05-2018 ALBUTEROL INH USES PRN 02-10-2019 MIRTAZAPINE 15MG #30/15DS (RECEIVED THIS FROM [facility]) 02-10-2019 LEXAPRO 10MG #30/30DS (RECEIVED THIS FROM [facility]) OTC MEDS: IBUPROFEN 200MG- 2 TABS PRN MULTIVITAMIN - 1 DAILY LORATADINE 10M DAILY PRN
[2019-03-08 12:42] VITALS: BP 124/75
--- NOTE | 2019-03-08 13:33 | Progress Note ---
Subjective Subjective/Events-last exam States that her pain has improved. She is starting CLD per surgery. No BM in the last 3 days. Denies any fever or chills Review of Systems General: No Chills Gastrointestinal: Abdominal Pain; No: Nausea, Vomiting Objective Exam Last Set of Vital Signs Vital Signs Date Time Temp Pulse Resp B/P (MAP) Pulse Ox O2 Delivery O2 Flow Rate FiO2 03/08/19 12:42 99.2 80 20 124/75 (91) 97 Room Air Capillary Refill : Less Than 3 Seconds I&O Intake and Output 03/08/19 00:00 Intake Total 3895 ml Output Total 410 ml Balance 3485 ml Intake Oral 1495 ml IV Total 2400 ml Output Urine Total 410 ml # Voids 2 General: Alert, Oriented X3, Cooperative, No Acute Distress Lungs: Clear to Auscultation, Normal Air Movement Heart: Regular Rate, No Murmurs Abdomen: Normal Bowel Sounds, Soft, Other (Mild LLQ abd pain, no rebound or gaurding) Extremities: No Edema, No Tenderness/Swelling Skin: No Rashes, No Breakdown Results/Procedures Lab Laboratory Tests 03/08/19 04:45: White Blood Count 6.3, Red Blood Count 4.72, Hemoglobin 9.9L, Hematocrit 31L, Mean Corpuscular Volume 66L, Mean Corpuscular Hemoglobin 21L, Mean Corpuscular Hemoglobin Concent 32, Red Cell Distribution Width 21.2H, Platelet Count 507H, Mean Platelet Volume 10.9H, Sodium Level 138, Potassium Level 3.5L, Chloride Level 103, Carbon Dioxide Level 22, Anion Gap 13, Blood Urea Nitrogen 5L, Creatinine 0.81, Estimat Glomerular Filtration Rate > 60, BUN/Creatinine Ratio 6, Glucose Level 98, Calcium Level 9.3, Magnesium Level 1.8 Assessment/Plan Assessment/Plan (1) Diverticulitis Status: Acute Assessment & Plan: - Pain improving, D/c IV pain meds, advance diet, likely home in AM, Discussed need for colonoscopy as outpatient, Complete PO antibiotics (2) BMI 40.0-44.9, adult Clinical Quality Measures DVT/VTE Risk/Contraindication: Risk Factor Score Per Nursin RFS Level Per Nursing on Admit: 2=Moderate MARLIN MEDINA MD Mar 08, 2019 13:33
--- NOTE | 2019-03-08 13:40 | NUR ---
Pastoral care visit.
[2019-03-08] MEDS: HYDROcodone/APAP 7.5 MG/325 MG (LORTAB, LORCET PLUS) TABLET PO PRN ×2 (13:58→23:45)
[2019-03-08 15:37] VITALS: BP 122/78
[2019-03-08 19:43] VITALS: BP 123/85
[2019-03-09] VITALS: BP 116/78
[2019-03-09] MEDS: D5 1/2 NS W/KCL 20 MEQ/L 1,000 ML IV SCH (02:19)
[2019-03-09 04:00] VITALS: BP 115/78
[2019-03-09 05:28] LABS: BASOPHILS % (AUTO) 1 % (0-10); EOSINOPHILS # (AUTO) 0.3 10^3/uL (0.0-0.3); EOSINOPHILS % (AUTO) 4 % (0-10); HEMATOCRIT 32 % (35-52); HEMOGLOBIN 10.1 G/DL (11.5-16.0); LYMPHOCYTES # (AUTO) 1.4 X 10^3 (1.0-4.0); LYMPHOCYTES % (AUTO) 23 % (12-44); MEAN CORPUSCULAR HEMOGLOBIN 21 PG (25-34); MEAN CORPUSCULAR HGB CONC 32 G/DL (32-36); MEAN CORPUSCULAR VOLUME 67 FL (80-99); MEAN PLATELET VOLUME 10.6 FL (7.4-10.4); MONOCYTES # (AUTO) 0.5 X 10^3 (0.0-1.0); MONOCYTES % (AUTO) 9 % (0-12); NEUTROPHILS # (AUTO) 3.9 X 10^3 (1.8-7.8); NEUTROPHILS % (AUTO) 64 % (42-75); PLATELET COUNT 472 10^3/uL (130-400); RED CELL DISTRIBUTION WIDTH 21.1 % (10.0-14.5); WHITE BLOOD COUNT 6.1 10^3/uL (4.3-11.0)
[2019-03-09 05:40] LABS: BUN/CREATININE RATIO 11; CALCIUM 9.2 MG/DL (8.5-10.1); CARBON DIOXIDE 23 MMOL/L (21-32); CHLORIDE 104 MMOL/L (98-107); CREATININE SERUM 0.81 MG/DL (0.60-1.30); GFR ESTIMATED > 60; GLUCOSE 95 MG/DL (70-105); POTASSIUM 3.7 MMOL/L (3.6-5.0); SODIUM 137 MMOL/L (135-145)
[2019-03-09] MEDS: metroNIDAZOLE 500MG/100ML IVPB 100 ML IV SCH ×2 (06:10→12:07)
[2019-03-09] MEDS: KETOROLAC 30 MG/ML VIAL IV PRN (06:13)
[2019-03-09] MEDS: CIPROFLOXACIN IV 400MG/200ML 200 ML IV SCH (07:55)
[2019-03-09] MEDS: NICOTINE PATCH REMOVAL TP SCH (07:59)
[2019-03-09 08:00] VITALS: BP 141/74
[2019-03-09] MEDS: NICOTINE 21 MG (NICODERM) PATCH TD SCH (08:00)
--- NOTE | 2019-03-09 08:05 | Progress Note - Surgery ---
DAWNA MEJIAAH,MED STUDENT 03/09/19 0805: Subjective Date Seen by a Provider: Mar 09, 2019 Time Seen by a Provider: 07:20 Subjective/Events-last exam Patient states LLQ pain has improved today and she is wanting to go home. She rates her pain as a 5/10. Tolerating clear liquid diet. Has not had a bowel movement yet but is passing flatus. She states that her breathing has improved today. Denies fever, chills, nausea, vomiting, shortness of breath, or chest pain. Review of Systems General: No Chills Cardiovascular: No: Chest Pain Gastrointestinal: No: Nausea, Vomiting Objective Exam Vital Signs Date Time Temp Pulse Resp B/P (MAP) Pulse Ox O2 Delivery O2 Flow Rate FiO2 03/09/19 04:00 99.4 80 18 115/78 (90) 94 Room Air 03/09/19 00:00 98.8 83 18 116/78 (91) 97 Room Air 03/08/19 20:30 97 Room Air 03/08/19 19:43 98.2 82 19 123/85 (98) 97 Room Air 03/08/19 15:37 98.1 72 20 122/78 (93) 98 Room Air 03/08/19 12:42 99.2 80 20 124/75 (91) 97 Room Air 03/08/19 08:01 98.8 84 18 106/75 (85) 97 Room Air 03/08/19 08:00 Room Air I & O 03/09/19 07:00 Intake Total 5400 ml Output Total 850 ml Balance 4550 ml Capillary Refill : Less Than 3 Seconds General Appearance: No Apparent Distress HEENT: PERRL/EOMI, Normal ENT Inspection, Pharynx Normal, Moist Mucous Membranes Neck: Full Range of Motion, Normal Inspection, Non Tender, Supple Respiratory: Chest Non Tender, No Accessory Muscle Use, No Respiratory Distress Cardiovascular: Regular Rate, Rhythm, No Edema, Normal Peripheral Pulses Gastrointestinal: tenderness (mildly tender LLQ, improved slightly) Extremity: Normal Capillary Refill Neurologic/Psychiatric: Alert, Oriented x3, No Motor/Sensory Deficits, Normal Mood/Affect Skin: Normal Color, Warm/Dry Lymphatic: No Adenopathy Results Lab Laboratory Tests 03/09/19 04:45: White Blood Count 6.1, Red Blood Count 4.73, Hemoglobin 10.1L, Hematocrit 32L, Mean Corpuscular Volume 67L, Mean Corpuscular Hemoglobin 21L, Mean Corpuscular Hemoglobin Concent 32, Red Cell Distribution Width 21.1H, Platelet Count 472H, Mean Platelet Volume 10.6H, Neutrophils (%) (Auto) 64, Lymphocytes (%) (Auto) 23, Monocytes (%) (Auto) 9, Eosinophils (%) (Auto) 4, Basophils (%) (Auto) 1, Neutrophils # (Auto) 3.9, Lymphocytes # (Auto) 1.4, Monocytes # (Auto) 0.5, E osinophils # (Auto) 0.3, Basophils # (Auto) 0.0, Sodium Level 137, Potassium Level 3.7, Chloride Level 104, Carbon Dioxide Level 23, Anion Gap 10, Blood Urea Nitrogen 9, Creatinine 0.81, Estimat Glomerular Filtration Rate > 60, BUN/Creatinine Ratio 11, Glucose Level 95, Calcium Level 9.2 Assessment/Plan Assessment/Plan Assessment/Plan LLQ Abdominal pain Diverticulitis Patient continues to improve, could possibly discharge home today Continue clear liquids Convert to oral abx if discharged to home Clinical Quality Measures DVT/VTE Risk/Contraindication: Risk Factor Score Per Nursin RFS Level Per Nursing on Admit: 2=Moderate EZEQUIEL RODRIGUEZ DO 03/09/19 1705: Subjective Subjective/Events-last exam as above wanting to go home. Objective Exam Gastrointestinal: tenderness (minimal llq) Assessment/Plan Assessment/Plan Assessment/Plan Patient will need colonoscopy about 6 weeks after symptoms resolved. Any worsening be evaluated at that time. Supervisory-Addendum Brief Verification & Attestation Time: Verification & Attestat.: 17:05 Participated in pt care: history, MDM, physical Personally performed: exam, history, MDM, supervision of care Care discussed with: Medical Student Procedures: n/a Results interpretation: Verified all documentation Verification and Attestation of Medical Student E/M Service A medical student performed and documented this service in my presence. I reviewed and verified all information documented by the medical student and made modifications to such information, when appropriate. I personally performed the physical exam and medical decision making. Ezequiel Rodriguez, Mar 09, 2019,17:05 MEGAN MEJIA,MED STUDENT Mar 09, 2019 08:05 EZEQUIEL RODRIGUEZ DO Mar 09, 2019 17:05
[2019-03-09] MEDS: HYDROcodone/APAP 7.5 MG/325 MG (LORTAB, LORCET PLUS) TABLET PO PRN (09:16)
--- NOTE | 2019-03-09 11:30 | Discharge Summary ---
Diagnosis/Chief Complaint Date of Admission Mar 05, 2019 at 17:00 Date of Discharge 03/09/2019 Admission Diagnosis Admission Diagnosis Diverticulitis Discharge Diagnosis See Above Problems/Diagnosis: (1) Diverticulitis Assessment & Plan: - Pain improving, D/c IV pain meds, advance diet, likely home in AM, Discussed need for colonoscopy as outpatient, Complete PO antibiotics 03/09: Switch to PO antibiotics, pain improving, discussed continuing bland diet, home today with 8 week f.u with surgery for colonoscopy Status: Acute (2) BMI 40.0-44.9, adult Discharge Summary-Simple/Stand Consultations Dr Rodriguez: General Surgery Discharge Physical Examination Allergies: Coded Allergies: Penicillins (Verified Allergy, Unknown, lip swelling, 03/18/18) Vitals & I&Os Vital Sign - Last 12Hours Date Time Temp Pulse Resp B/P (MAP) Pulse Ox O2 Delivery O2 Flow Rate FiO2 03/09/19 08:00 Room Air 03/09/19 08:00 98.4 82 18 141/74 (96) 98 Intake and Output 03/09/19 00:00 Intake Total 5400 ml Output Total 850 ml Balance 4550 ml General Appearance: Alert, Oriented X3, Cooperative, No Acute Distress HEENT: Mucous Memb Moist/[place] Respiratory: Clear to Auscultation, Normal Air Movement Cardiovascular: Regular Rate, No Murmurs Abdominal: Normal Bowel Sounds, Soft, Other (mild LLQ ttp, no rebound or gaurding) Extremities: No Edema, No Tenderness/Swelling Skin: No Rashes, No Breakdown Neuro: Strength at 5/5 X4 Ext, Cranial Nerves 3-12 NL Psych/Mental Status: Mental Status NL, Mood NL Hospital Course Was the Problem List Reviewed?: Yes See final discharge diagnosis. Discussion & Recommendations 39 yo F with first time episode of diverticulitis w/o perforation. Patient required IV antibiotics and IV pain medications because she was unable to take PO. She was then advanced as tolerated and was started on PO antibiotics and di scharged home to complete course of antibiotics. She was seen by Dr Rodriguez with general surgery during stay and will have a f.u appt for colonoscopy following completion of antibiotics. Discharge Condition at discharge stable Instructions to patient/family Please see electronic discharge instructions given to patient. Discharge Medications Reviewed and agree with Discharge Medication list on patient's Discharge Instruction sheet Clinical Quality Measures DVT/VTE Risk/Contraindication: Risk Factor Score Per Nursin RFS Level Per Nursing on Admit: 2=Moderate Copy Copies To 1: MARLIN STRATTON MD Mar 09, 2019 11:30
[2019-03-09] MEDS ORDERED: CIPR-225 PO (11:32)
[2019-03-09] MEDS ORDERED: METR500T PO (11:32)
--- NOTE | 2019-03-09 11:35 | Discharge Instructions ---
Discharge [facility] Reconcile Patient Problems Problems Reviewed?: Yes Discharge Medications New, Converted or Re-Newed RX: Transmitted to Pharmacy New Medications: Ciprofloxacin HCl (Cipro) 500 Mg Tablet 500 MG PO BID for 7 Days, #14 TAB Metronidazole (Flagyl) 500 Mg Tablet 500 MG PO BID for 7 Days, #14 TAB Continued Medications: Albuterol Sulfate (Proair Hfa) 1 Puff Puff 2 PUFF IH Q4H PRN for SHORTNESS OF BREATH, EA LAST FILLED 08-05-2018 Escitalopram Oxalate (Lexapro) 20 Mg Tablet 10 MG PO DAILY, TAB Ibuprofen (Ibuprofen) 200 Mg Tablet 200 MG PO Q6H PRN for PAIN-MILD, TAB Loratadine (Loratadine) 10 Mg Tablet 10 MG PO DAILY PRN for ALLERGIES, TAB Mirtazapine (Remeron) 15 Mg Tab.rapdis 15-30 MG PO HS, TAB Multivitamin with Minerals (One Daily Complete) 1 Each Tablet 1 EACH PO DAILY, TAB Patient Instructions Goal/Follow Up Appt: F/u with PCP in 1-2 weeks 6 weeks with general surgeon Activity & Diet Discharge Diet: Low Residue Orders-Post D/C & Referrals Pneu Vac Indicated: Yes MARLIN MEDINA MD Mar 09, 2019 11:35
[2019-03-09 12:00] VITALS: BP 122/65
== END 2019-03-09 13:15 | disposition home or self-care (01) | DRG 391 ==
LOC: EDUNIT# 15:11 → ER 15:12 → 4TH 17:00
PROVIDERS: ADMIT Internal Medicine; ATTEND Family Medicine
DX: K57.32 Diverticulitis of large intestine without perforation or abscess without bleeding (principal); A41.9 Sepsis, unspecified organism; E66.01 Morbid (severe) obesity due to excess calories; Z68.41 Body mass index [BMI] 40.0-44.9, adult; R30.9 Painful micturition, unspecified; I10 Essential (primary) hypertension; J45.909 Unspecified asthma, uncomplicated; F17.210 Nicotine dependence, cigarettes, uncomplicated; K44.9 Diaphragmatic hernia without obstruction or gangrene; F41.9 Anxiety disorder, unspecified; D57.3 Sickle-cell trait; Z87.442 Personal history of urinary calculi
CPT/HCPCS: 36415; 74022; 74176; 80048; 80053; 80306; 80320; 81000; 82150; 83690; 83735; 84703; 85025; 85027; 96374; 96375

== ENCOUNTER 2019-11-17 12:16 | Emergency (ER) | payer SELFPAY ==
[~2019-11-17] VITALS: Ht 170.1 cm; Wt 127.2 kg
[~2019-11-17 12:16] MED LIST changes: +ALB0.5V INH; +CIPR-225 PO; +ESCI20TA PO; +FLUT1DIS26 IH; +IBUP-2473 PO; +LORA10TA7 PO; +METR500T PO; +MIRT15TA3 PO; +MULT-436 PO; +RT-ALBUINH IH
--- NOTE | 2019-11-17 12:20 | NUR ---
Mariely hamilton in [facility] - 11/17/19 at 1221 by PMCCLURE CALL AND GAVE UPDATE TO SELINA MANLEY
[2019-11-17 13:04] LABS: CLARITY,URINE SL CLOUDY; COLOR,URINE YELLOW; GLUCOSE, URINE (UA) NEGATIVE (NEGATIVE); KETONES,URINE NEGATIVE (NEGATIVE); LEUKOCYTE ESTERASE ,URINE NEGATIVE (NEGATIVE); NITRITE,URINE NEGATIVE (NEGATIVE); PROTEIN,URINE TRACE (NEGATIVE)
[2019-11-17 13:07] LABS: BASOPHILS % (AUTO) 0 % (0-10); EOSINOPHILS # (AUTO) 0.1 10^3/uL (0.0-0.3); EOSINOPHILS % (AUTO) 2 % (0-10); HEMATOCRIT 33 % (35-52); HEMOGLOBIN 10.8 G/DL (11.5-16.0); LYMPHOCYTES # (AUTO) 1.3 X 10^3 (1.0-4.0); LYMPHOCYTES % (AUTO) 13 % (12-44); MEAN CORPUSCULAR HEMOGLOBIN 23 PG (25-34); MEAN CORPUSCULAR HGB CONC 33 G/DL (32-36); MEAN CORPUSCULAR VOLUME 69 FL (80-99); MEAN PLATELET VOLUME 10.8 FL (7.4-10.4); MONOCYTES # (AUTO) 0.8 X 10^3 (0.0-1.0); MONOCYTES % (AUTO) 8 % (0-12); NEUTROPHILS # (AUTO) 7.4 X 10^3 (1.8-7.8); NEUTROPHILS % (AUTO) 77 % (42-75); PLATELET COUNT 393 10^3/uL (130-400); RED CELL DISTRIBUTION WIDTH 18.9 % (10.0-14.5); WHITE BLOOD COUNT 9.6 10^3/uL (4.3-11.0)
[2019-11-17] MEDS ORDERED: KETOROLAC 30 MG/ML VIAL IVP ONE (13:15)
[2019-11-17 13:16] LABS: ALBUMIN 4.2 GM/DL (3.2-4.5)
[2019-11-17 13:17] LABS: CHLORIDE 104 MMOL/L (98-107); POTASSIUM 3.2 MMOL/L (3.6-5.0); SODIUM 139 MMOL/L (135-145)
[2019-11-17 13:17] LABS: AMPHETAMINE SCREEN, URINE POSITIVE (NEGATIVE); BARBITURATE SCREEN URINE NEGATIVE (NEGATIVE); BENZODIAZEPINES SCREEN URINE NEGATIVE (NEGATIVE); CANNABINOID SCREEN, URINE POSITIVE (NEGATIVE); COCAINE SCREEN URINE NEGATIVE (NEGATIVE); METHADONE STAT NEGATIVE (NEGATIVE); METHAMPHETAMINE SCREEN URINE S POSITIVE (NEGATIVE); OPIATE SCREEN URINE NEGATIVE (NEGATIVE); OXYCODONE STAT NEGATIVE (NEGATIVE); PROPOXYPHENE STAT NEGATIVE (NEGATIVE); TRICYCLIC ANTIDEPRESSANTS SCRE NEGATIVE (NEGATIVE)
--- NOTE | 2019-11-17 13:17 | ED Abdominal Pain ---
General Chief Complaint: Abdominal/GI Problems Stated Complaint: DIVERTICULITIS FLARE UP Nursing Triage Note: AMB TO ROOM SENT FROM [facility] WITH ABD PAIN AND FEVER NO FEVER ON ADMIT Sepsis Screen: No Definite Risk Source of Information: Patient Exam Limitations: No Limitations History of Present Illness Date Seen by Provider: Nov 17, 2019 Time Seen by Provider: 12:45 Initial Comments Patient presents to ER by private conveyance from home with chief complaint of left-sided abdominal pain nausea without diarrhea or bloody stool. She's had no fever or chills cough shortness of breath. She says she has a history of diverticulitis and that's what this feels like. This started Friday approximately 3 days ago and she started her period Friday 5 days ago. Her menstrual cycles over, regular and her pain persists. She's been using ibuprofen once or twice a day for the pain. She went to the clinic today and they sent her out here. She had a umbilical hernia repair. She is a G0. She denies dysuria or discharge. She denies history of pancreatitis or drinking alcohol. She was given a dose of Zofran at the clinic and her nausea is under control now. She rates her pain as a 15 out of 10. Ambulated into the ER without difficulty. Allergies and Home Medications Allergies Coded Allergies: Penicillins (Verified Allergy, Unknown, lip swelling, 03/18/18) Home Medications Albuterol Sulfate 1 Puff Puff, 2 PUFF IH Q4H PRN for SHORTNESS OF BREATH, (Reported) LAST FILLED 08-05-2018 Ciprofloxacin HCl 500 Mg Tablet, 500 MG PO BID Prescribed by: MARLIN MEDINA on 03/09/19 1132 Escitalopram Oxalate 20 Mg Tablet, 10 MG PO DAILY, (Reported) Ibuprofen 200 Mg Tablet, 200 MG PO Q6H PRN for PAIN-MILD, (Reported) Loratadine 10 Mg Tablet, 10 MG PO DAILY PRN for ALLERGIES, (Reported) Metronidazole 500 Mg Tablet, 500 MG PO BID Prescribed by: MARLIN MEDINA on 03/09/19 1132 Mirtazapine 15 Mg Tab.rapdis, 15-30 MG PO HS, (Reported) Multivitamin with Minerals 1 Each Tablet, 1 EACH PO DAILY, (Reported) Patient Home Medication List Home Medication List Reviewed: Yes Review of Systems Review of Systems Constitutional: No chills, No diaphoresis EENTM: No Blurred Vision, No Double Vision Respiratory: Denies Cough, Denies Shortness of Air Cardiovascular: Denies Chest Pain, Denies Lightheadedness Gastrointestinal: See HPI, Abdominal Pain; Denies Constipated, Denies Diarrhea; Nausea, Poor Fluid Intake; Denies Vomiting Genitourinary: Denies Burning, Denies Discharge Musculoskeletal: No back pain, No joint pain All Other Systems Reviewed Negative Unless Noted: Yes Past Jnxavlj-Pjrmmf-Hrijau Hx Patient Social History Alcohol Use: Occasionally Uses Recreational Drug Use: No Smoking Status: Current Everyday Smoker Type Used: Cigarettes 2nd Hand Smoke Exposure: Yes Recent Foreign Travel: No Contact w/Someone Who Travel: No Recent Infectious Disease Expo: No Recent Hopitalizations: No Immunizations Up To Date PED Vaccines UTD: Yes Seasonal Allergies Seasonal Allergies: Yes Past Medical History Surgeries: Yes Abdominal, Gallbladder Respiratory: Yes Asthma Currently Using CPAP: No Currently Using BIPAP: No Cardiac: No Hypertension Neurological: No Female Reproductive Disorders: Denies Genitourinary: No Kidney Stones Gastrointestinal: Yes (HIATAL HERNIA REPAIRED) Diverticulosis, Hiatal Hernia Musculoskeletal: Yes Fractures Endocrine: No (OBESITY) HEENT: No Cancer: No Psychosocial: No Anxiety Integumentary: No Blood Disorders: Yes (SICKLE CELL TRAIT) Family Medical History Alzheimer's disease MATERNAL GRANDMOTHER Diabetes mellitus 19 FATHER Hypertension 19 FATHER 19 MOTHER Myocardial infarction 19 MOTHER Neoplasm PATERNAL GRANDMOTHER (COLON CANCER) No Pertinent Family Hx Physical Exam Vital Signs Vital Signs - First Documented 11/17/19 12:27 Temp 36.8 Pulse 112 Resp 18 B/P (MAP) 156/106 (123) Pulse Ox 99 O2 Delivery Room Air Capillary Refill : Less Than 3 Seconds Height/Weight/BMI Height: 5'7.00" Weight: 285lbs. 7.0oz. 129.544285dc; 43.00 BMI Method:Stated General Appearance: WD/WN, mild distress HEENT: PERRL/EOMI, pharynx normal Neck: full range of motion, normal inspection Respiratory: lungs clear, normal breath sounds, no respiratory distress, no accessory muscle use Cardiovascular: normal peripheral pulses, regular rate, rhythm Peripheral Pulses: 2+ Radial Pulses (R), 2+ Radial Pulses (L) Gastrointestinal: normal bowel sounds, guarding (left mid abdomen and left lower quadrant abdomen); No rebound; tenderness (left lower quadrant and left midabdomen) Extremities: normal range of motion, non-tender, normal inspection Back: normal inspection, no CVA tenderness Neurologic/Psychiatric: alert, normal mood/affect, oriented x 3 Skin: normal color, warm/dry Progress/Results/Core Measures Results/Orders Lab Results Laboratory Tests Test 11/17/19 12:53 11/17/19 13:00 Range/Units Urine Color YELLOW Urine Clarity SL CLOUDY Urine pH 6.0 5-9 Urine Specific [place] 1.025 H 1.016-1.022 Urine Protein TRACE H NEGATIVE Urine Glucose (UA) NEGATIVE NEGATIVE Urine Ketones NEGATIVE NEGATIVE Urine Nitrite NEGATIVE NEGATIVE Urine Bilirubin 1+ H NEGATIVE Urine Urobilinogen 1.0 < = 1.0 MG/DL Urine Leukocyte Esterase NEGATIVE NEGATIVE Urine RBC (Auto) 2+ H NEGATIVE Urine RBC RARE /HPF Urine WBC NONE /HPF Urine Squamous Epithelial Cells RARE /HPF Urine Crystals NONE /LPF Urine Bacteria NEGATIVE /HPF Urine Casts NONE /LPF Urine Mucus SMALL H /LPF Urine Culture Indicated NO Urine Opiates Screen NEGATIVE NEGATIVE Urine Oxycodone Screen NEGATIVE NEGATIVE Urine Methadone Screen NEGATIVE NEGATIVE Urine Propoxyphene Screen NEGATIVE NEGATIVE Urine Barbiturates Screen NEGATIVE NEGATIVE Ur Tricyclic Antidepressants Screen NEGATIVE NEGATIVE Urine Phencyclidine Screen NEGATIVE NEGATIVE Urine Amphetamines Screen POSITIVE H NEGATIVE Urine Methamphetamines Screen POSITIVE H NEGATIVE Urine Benzodiazepines Screen NEGATIVE NEGATIVE Urine Cocaine Screen NEGATIVE NEGATIVE Urine Cannabinoids Screen POSITIVE H NEGATIVE White Blood Count 9.6 4.3-11.0 10^3/uL Red Blood Count 4.75 4.35-5.85 10^6/uL Hemoglobin 10.8 L 11.5-16.0 G/DL Hematocrit 33 L 35-52 % Mean Corpuscular Volume 69 L 80-99 FL Mean Corpuscular Hemoglobin 23 L 25-34 PG Mean Corpuscular Hemoglobin Concent 33 32-36 G/DL Red Cell Distribution Width 18.9 H 10.0-14.5 % Platelet Count 393 130-400 10^3/uL Mean Platelet Volume 10.8 H 7.4-10.4 FL Neutrophils (%) (Auto) 77 H 42-75 % Lymphocytes (%) (Auto) 13 12-44 % Monocytes (%) (Auto) 8 0-12 % Eosinophils (%) (Auto) 2 0-10 % Basophils (%) (Auto) 0 0-10 % Neutrophils # (Auto) 7.4 1.8-7.8 X 10^3 Lymphocytes # (Auto) 1.3 1.0-4.0 X 10^3 Monocytes # (Auto) 0.8 0.0-1.0 X 10^3 Eosinophils # (Auto) 0.1 0.0-0.3 10^3/uL Basophils # (Auto) 0.0 0.0-0.1 10^3/uL Sodium Level 139 135-145 MMOL/L Potassium Level 3.2 L 3.6-5.0 MMOL/L Chloride Level 104 98-107 MMOL/L Carbon Dioxide Level 23 21-32 MMOL/L Anion Gap 12 5-14 MMOL/L Blood Urea Nitrogen 5 L 7-18 MG/DL Creatinine 0.81 0.60-1.30 MG/DL Estimat Glomerular Filtration Rate > 60 BUN/Creatinine Ratio 6 Glucose Level 100 70-105 MG/DL Calcium Level 9.1 8.5-10.1 MG/DL Corrected Calcium 8.9 8.5-10.1 MG/DL Total Bilirubin 1.0 0.1-1.0 MG/DL Aspartate Amino Transf (AST/SGOT) 21 5-34 U/L Alanine Aminotransferase (ALT/SGPT) 15 0-55 U/L Alkaline Phosphatase 72 40-136 U/L C-Reactive Protein High Sensitivity 17.28 H 0.00-0.50 MG/DL Total Protein 8.9 H 6.4-8.2 GM/DL Albumin 4.2 3.2-4.5 GM/DL Lipase 10 8-78 U/L My Orders Orders - RONALD NEWTON Ua Culture If Indicated (11/17/19 12:21) Urine Bedside (11/17/19 12:21) Cbc With Automated Diff (11/17/19 12:21) Hs C Reactive Protein (11/17/19 12:21) Comprehensive Metabolic Panel (11/17/19 12:21) Lipase (11/17/19 12:21) Ed Iv/Invasive Line Start (11/17/19 12:21) Drug Screen Stat (Urine) (11/17/19 12:21) Ketorolac Injection (Toradol Injection) (11/17/19 13:15) Ct Abdomen/Pelvis W (11/17/19 13:10) Iohexol Injection (Omnipaque 350 Mg/Ml 1 (11/17/19 13:30) Received Contrast (Hold Metformin- Contr (11/17/19 13:30) Ns (Ivpb) (Sodium Chloride 0.9% Ivpb Bag (11/17/19 13:30) Ed Iv/Invasive Line Start (11/17/19 13:20) Lactated Ringers (Lr 1000 Ml Iv Solution (11/17/19 13:20) Pantoprazole Injection (Protonix Injecti (11/17/19 13:30) Medications Given in ED Current Medications Medications Dose Ordered Sig/Mir Route Start Time Stop Time Status Last Admin Dose Admin Iohexol 100 ml ONCE ONCE IV 11/17/19 13:30 11/17/19 13:31 DC 11/17/19 13:45 100 ML Ketorolac Tromethamine 30 mg ONCE ONCE IVP 11/17/19 13:15 11/17/19 13:16 DC 11/17/19 13:17 30 MG Lactated Ringer's 1,000 ml @ 0 mls/hr Q0M ONCE IV 11/17/19 13:20 11/17/19 13:22 DC 11/17/19 13:47 1,000 MLS/HR Pantoprazole 40 mg ONCE ONCE IV 11/17/19 13:30 11/17/19 13:31 DC 11/17/19 13:51 40 MG Sodium Chloride 100 ml ONCE ONCE IV 11/17/19 13:30 11/17/19 13:31 DC 11/17/19 13:45 80 ML Vital Signs/I&O 11/17/19 12:27 Temp 36.8 Pulse 112 Resp 18 B/P (MAP) 156/106 (123) Pulse Ox 99 O2 Delivery Room Air Blood Pressure Mean: 123 Progress Progress Note : Time: 13:17 Progress Note The patient has tachycardia slowly give her a liter of fluids get a CT scan and labs. She does not have an elevated white count or fever. He has no other evidence of sepsis. Suspect diverticulitis versus possible ovarian cyst, gynecologic source of pain? Toradol for pain. She does not want anything for nausea presently. Diagnostic Imaging Diagonstic Imaging: CT (with IV contrast) Plain Films/CT/US/NM/MRI: abdomen, pelvis Comments NAME: BARTOLOMALUADAIR Nichols MED REC#: [id number] PT STATUS: REG ER : 1980 PHYSICIAN: RONALD NEWTON MD ADMIT DATE: 11/17/19/ER Draft Date of Exam:11/17/19 CT ABDOMEN/PELVIS W PROCEDURE: CT abdomen and pelvis with contrast. TECHNIQUE: Multiple contiguous axial images were obtained through the abdomen and pelvis after administration of intravenous contrast. Auto Exposure Controls were utilized during the CT exam to meet ALARA standards for radiation dose reduction. INDICATION: Left-sided abdominal pain. COMPARISON: Comparison is made with prior CT from 03/05/2019. FINDINGS: The lung bases are clear. The liver demonstrates generalized low density, consistent with hepatic steatosis. No discrete liver mass is detected. The gallbladder is surgically absent. No biliary ductal dilatation is identified. The pancreas and spleen are unremarkable. No adrenal mass is identified. The kidneys are unremarkable. Aorta is nonaneurysmal. The small and large bowel loops are normal in caliber. No obstruction is identified. There is diverticulosis of the sigmoid and descending colon. There is some very mild inflammatory stranding adjacent to a sigmoid loop, perhaps owing to mild diverticulitis. No fluid collection or abscess is seen. There is no bowel obstruction. Bladder is decompressed. There is a probable fibroid in the left uterine body. There appears to be a complex mass in the right adnexa measuring 4.5 cm in size. This may represent a complex ovarian cyst. IMPRESSION: 1. Hepatic steatosis. 2. Findings suggestive of mild sigmoid diverticulitis. No abscess formation or bowel obstruction is seen. 3. Complex low-density lesion in the right adnexa, likely ovarian in origin. Pelvic sonography would be useful for further evaluation. Dictated on workstation # [id number] Dict: 11/17/19 1346 Trans: 11/17/19 1356 [id number] Interpreted by: KAYLIE SILVA MD Electronically signed by: Reviewed: Reviewed by Me Departure Impression Primary Impression: Sigmoid diverticulitis Disposition: 01 HOME, SELF-CARE Condition: Stable Departure-Patient Inst. Decision time for Depature: 14:03 Referrals: [facility] (PCP/Family) Primary Care Physician Patient Instructions: Diverticulitis (DC) Add. Discharge Instructions: Drink plenty of fluids. If you have nausea use the Zofran 1 tablet every 6 hours under the tongue. Start taking ciprofloxacin and one capsule twice a day with food for the next week. Start taking the Flagyl one capsule 3 times a day with food for the next week. Call your primary care office and request follow-up sometime within the next week for reevaluation. If you develop fevers especially above 102.5, intractable pain despite Tylenol and ibuprofen, intractable nausea and vomiting or other worrisome symptoms then please return to the ER. All discharge instructions reviewed with patient and/or family. Voiced understa nding. Scripts Ondansetron (Ondansetron Odt) 4 Mg Tab.rapdis 4 MG PO Q6H PRN for NAUSEA/VOMITING, #15 TAB 0 Refills Prov: RONALD NEWTON 11/17/19 Metronidazole (Flagyl) 500 Mg Tablet 500 MG PO TIDWM for 7 Days, #21 TAB 0 Refills Prov: RONALD NEWTON 11/17/19 Ciprofloxacin HCl (Ciprofloxacin HCl) 500 Mg Tablet 500 MG PO BID, #14 TAB 0 Refills Prov: RONALD NEWTON 11/17/19 Work/School Note: Work Release Form Date Seen in the Emergency Department: Nov 17, 2019 Return to Work: Nov 22, 2019 Restrictions: No Restrictions RONALD NEWTON Nov 17, 2019 13:17
[2019-11-17 13:18] LABS: CALCIUM 9.1 MG/DL (8.5-10.1)
[2019-11-17 13:19] LABS: GLUCOSE 100 MG/DL (70-105); TOTAL PROTEIN 8.9 GM/DL (6.4-8.2)
[2019-11-17 13:20] LABS: CARBON DIOXIDE 23 MMOL/L (21-32)
[2019-11-17] MEDS ORDERED: LACTATED RINGERS 1,000 ML IV ONE (13:20)
[2019-11-17 13:21] LABS: BACTERIA,URINE NEGATIVE /HPF; BILIRUBIN,URINE 1+ (NEGATIVE); RBC,URINE RARE /HPF; SQUAMOUS EPITHELIAL CELL,UR RARE /HPF
[2019-11-17 13:22] LABS: ALKALINE PHOSPHATASE 72 U/L (40-136)
[2019-11-17 13:23] LABS: CREATININE SERUM 0.81 MG/DL (0.60-1.30); GFR ESTIMATED > 60
[2019-11-17 13:24] LABS: BUN/CREATININE RATIO 6
[2019-11-17 13:25] LABS: ALANINE AMINOTRANSFERASE 15 U/L (0-55)
[2019-11-17 13:26] LABS: LIPASE 10 U/L (8-78)
[2019-11-17] MEDS ORDERED: PANTOPRAZOLE 40 MG (PROTONIX) VIAL IV ONE (13:30)
[2019-11-17] MEDS ORDERED: NS 100 ML (IVPB) BAG IV ONE (13:30)
[2019-11-17] MEDS ORDERED: HOLD METFORMIN - RECEIVED CONTRAST 20 ML VIAL IV SCH (13:30)
[2019-11-17] MEDS ORDERED: IOHEXOL 350 MG/ML 100 ML (OMNIPAQUE 350) VIAL IV ONE (13:30)
--- NOTE | 2019-11-17 13:56 | Diagnostic Imaging Report ---
PROCEDURE: CT abdomen and pelvis with contrast. TECHNIQUE: Multiple contiguous axial images were obtained through the abdomen and pelvis after administration of intravenous contrast. Auto Exposure Controls were utilized during the CT exam to meet ALARA standards for radiation dose reduction. INDICATION: Left-sided abdominal pain. COMPARISON: Comparison is made with prior CT from 03/05/2019. FINDINGS: The lung bases are clear. The liver demonstrates generalized low density, consistent with hepatic steatosis. No discrete liver mass is detected. The gallbladder is surgically absent. No biliary ductal dilatation is identified. The pancreas and spleen are unremarkable. No adrenal mass is identified. The kidneys are unremarkable. Aorta is nonaneurysmal. The small and large bowel loops are normal in caliber. No obstruction is identified. There is diverticulosis of the sigmoid and descending colon. There is some very mild inflammatory stranding adjacent to a sigmoid loop, perhaps owing to mild diverticulitis. No fluid collection or abscess is seen. There is no bowel obstruction. Bladder is decompressed. There is a probable fibroid in the left uterine body. There appears to be a complex mass in the right adnexa measuring 4.5 cm in size. This may represent a complex ovarian cyst. IMPRESSION: 1. Hepatic steatosis. 2. Findings suggestive of mild sigmoid diverticulitis. No abscess formation or bowel obstruction is seen. 3. Complex low-density lesion in the right adnexa, likely ovarian in origin. Pelvic sonography would be useful for further evaluation. Dictated by: Dictated on workstation # [id number]
[2019-11-17] MEDS ORDERED: ONDA4TAB11 PO (14:07)
[2019-11-17] MEDS ORDERED: CIPR500T4 PO (14:07)
[2019-11-17] MEDS ORDERED: METR500T PO (14:07)
[2019-11-17 14:15] VITALS: BP 165/102
== END 2019-11-17 14:25 | disposition home or self-care (01) ==
LOC: EDUNIT# 12:16 → ER 12:18
DX: K57.32 Diverticulitis of large intestine without perforation or abscess without bleeding (principal); J45.909 Unspecified asthma, uncomplicated; I10 Essential (primary) hypertension; F41.9 Anxiety disorder, unspecified; F17.210 Nicotine dependence, cigarettes, uncomplicated; Z87.442 Personal history of urinary calculi; Z88.0 Allergy status to penicillin; Z79.899 Other long term (current) drug therapy
CPT/HCPCS: 36415; 74177; 80053; 80306; 81000; 83690; 84703; 85025; 86141

== ENCOUNTER → 2020-05-24 | Outpatient (CLI) | payer SELFPAY ==
[~2020-05-24] MED LIST changes: +CIPR500T4 PO; +ONDA4TAB11 PO
--- NOTE | 2020-05-24 16:02 | Diagnostic Imaging Report ---
INDICATION: Confusion. Hypertension. Nausea and vomiting. Left-sided numbness. Headaches. Photophobia. TECHNIQUE: Routine non contrast-enhanced axial images were obtained from the skull base to the vertex. Auto Exposure Controls were utilized during the CT exam to meet ALARA standards for radiation dose reduction COMPARISON: None. FINDINGS: The ventricles and cortical sulci are normal in size and contour. There is no midline shift or mass-effect. No acute intra-axial hemorrhage is seen. There are no abnormal areas of increased or decreased density to suggest acute hemorrhage or edema. No extra-axial masses or collections are present. The bony calvarium is intact. The visualized paranasal sinuses are unremarkable. The mastoid air cells are clear. IMPRESSION: 1. No acute intracranial abnormality. No CT evidence of mass, acute infarct or intracranial hemorrhage. Dictated by: Dictated on workstation # [id number]
== END ==
LOC: RAD 15:24
PROVIDERS: ATTEND Nurse Practitioner Family
DX: I10 Essential (primary) hypertension (principal); H53.149 Visual discomfort, unspecified; R11.2 Nausea with vomiting, unspecified; R51.9 Headache, unspecified; R20.0 Anesthesia of skin; R41.0 Disorientation, unspecified
CPT/HCPCS: 70450

== ENCOUNTER 2020-10-18 13:21 | Emergency (ER) | payer SELFPAY ==
[~2020-10-18] VITALS: Ht 167 cm; Wt 111.0 kg
[~2020-10-18 13:21] MED LIST changes: -CIPR500T4 PO; +CIPR500T5 PO
[2020-10-18] MEDS ORDERED: KETOROLAC 30 MG/ML VIAL IVP ONE (15:00)
--- NOTE | 2020-10-18 15:13 | ED Abdominal Pain ---
General Chief Complaint: Abdominal/GI Problems Stated Complaint: LEFT SIDE ABD PAIN, VAG BLEEDING Nursing Triage Note: Patient states left abdominal pain for four days that started at the end of period, worsening as of yesterday, hx of diverticulitis. Patient states blood in urine as of yesterday. Sepsis Screen: No Definite Risk Source of Information: Patient Exam Limitations: No Limitations History of Present Illness Date Seen by Provider: Oct 18, 2020 Time Seen by Provider: 14:55 Initial Comments Patient is a 40-year-old female who presents to the emergency room today with a chief complaint of nausea and abdominal pain. Patient states her symptoms have been ongoing for about 4 days. She states it is primarily on the left side of her abdomen it radiates into her back. She describes the discomfort as a pressure and pain. Patient states her last menstrual cycle was the through 14 October. She is not been sexually active in over a year. Patient states that she was diagnosed with diverticulitis sometime last year and recovered uneventfully. Patient states that this is a new pain. She states she has a family history of kidney stones on her mother side. She has never had a kidney stone herself before. She states she had a little subjective fever yesterday but she thought it might have been due to just "allergies". She denies any dysuria, urgency or frequency. No abnormal vaginal bleeding. She states she did notice when she was urinating earlier that she might of had a little blood in her urine. No blood in her stool. No diarrheal stool. Last bowel movement was this morning. All other review of systems reviewed and negative except as stated. Timing/Duration: 4-5 Days Severity/Quality: Severe, Aching, Cramping Location: LLQ Radiation: Other (Diffuse radiation) Activities at Onset: None Associated Symptoms: Fever/Chills (Subjective), Nausea/Vomiting Allergies and Home Medications Allergies Coded Allergies: Penicillins (Verified Allergy, Unknown, lip swelling, 03/18/18) Home Medications Albuterol Sulfate 1 Puff Puff, 2 PUFF IH Q4H PRN for SHORTNESS OF BREATH, (Reported) LAST FILLED 08-05-2018 Ciprofloxacin HCl 500 Mg Tablet, 500 MG PO BID Prescribed by: MARLIN MEDINA on 03/09/19 1132 Ciprofloxacin HCl 500 Mg Tablet, 500 MG PO BID Prescribed by: RONALD NEWTON on 11/17/19 1407 Ciprofloxacin HCl 500 Mg Tablet, 500 MG PO BID Prescribed by: YONY CAN on 10/18/20 1638 Escitalopram Oxalate 20 Mg Tablet, 10 MG PO DAILY, (Reported) Hydrocodone/Acetaminophen 1 Each Tablet, 1 TAB PO Q6H PRN for PAIN-MODERATE (5- 7) Prescribed by: YONY CAN on 10/18/20 1638 Ibuprofen 200 Mg Tablet, 200 MG PO Q6H PRN for PAIN-MILD, (Reported) Loratadine 10 Mg Tablet, 10 MG PO DAILY PRN for ALLERGIES, (Reported) Metronidazole 500 Mg Tablet, 500 MG PO BID Prescribed by: MARLIN MEDINA on 03/09/19 1132 Metronidazole 500 Mg Tablet, 500 MG PO TIDWM Prescribed by: RONALD NEWTON on 11/17/19 140 Metronidazole 500 Mg Tablet, 500 MG PO TID Prescribed by: YONY CAN on 10/18/20 1638 Mirtazapine 15 Mg Tab.rapdis, 15-30 MG PO HS, (Reported) Multivitamin with Minerals 1 Each Tablet, 1 EACH PO DAILY, (Reported) Ondansetron 4 Mg Tab.rapdis, 4 MG PO Q6H PRN for NAUSEA/VOMITING Prescribed by: RONALD NEWTON on 11/17/19 140 Ondansetron 4 Mg Tab.rapdis, 4 MG PO Q8H PRN for NAUSEA/VOMITING Prescribed by: YONY CAN on 10/18/20 1638 Patient Home Medication List Home Medication List Reviewed: Yes Review of Systems Review of Systems Constitutional: see HPI EENTM: No Symptoms Reported Respiratory: No Symptoms Reported Cardiovascular: No Symptoms Reported Gastrointestinal: Abdominal Pain, Nausea, Poor Appetite Genitourinary: No Symptoms Reported Musculoskeletal: no symptoms reported Skin: no symptoms reported Psychiatric/Neurological: No Symptoms Reported All Other Systems Reviewed Negative Unless Noted: Yes Past Dwxyiik-Opgngt-Ucjixd Hx Patient Social History Alcohol Use: Denies Use Smoking Status: Current Everyday Smoker Type Used: Electronic/Vapor 2nd Hand Smoke Exposure: Yes Recent Infectious Disease Expo: No Recent Hopitalizations: No Immunizations Up To Date PED Vaccines UTD: Yes Seasonal Allergies Seasonal Allergies: Yes Past Medical History Surgeries: Yes Abdominal, Gallbladder Respiratory: Yes Asthma Currently Using CPAP: No Currently Using BIPAP: No Cardiac: Yes Hypertension Neurological: No : No Last Menstrual Period: Oct 08, 2020 Female Reproductive Disorders: Denies Genitourinary: Yes Kidney Stones Gastrointestinal: Yes (HIATAL HERNIA REPAIRED) Diverticulosis, Hiatal Hernia Musculoskeletal: Yes Fractures Endocrine: No (OBESITY) HEENT: No Cancer: No Psychosocial: No Anxiety Integumentary: No Blood Disorders: Yes (SICKLE CELL TRAIT) Family Medical History Alzheimer's disease MATERNAL GRANDMOTHER Diabetes mellitus 19 FATHER Hypertension 19 FATHER 19 MOTHER Myocardial infarction 19 MOTHER Neoplasm PATERNAL GRANDMOTHER (COLON CANCER) No Pertinent Family Hx Physical Exam Vital Signs Vital Signs - First Documented 10/18/20 13:58 Temp 36.3 Pulse 100 Resp 16 B/P (MAP) 143/97 (112) Pulse Ox 96 O2 Delivery Room Air Capillary Refill : Less Than 3 Seconds Height/Weight/BMI Height: 5'7.00" Weight: 285lbs. 7.0oz. 129.330009fh; 39.00 BMI Method:Stated General Appearance: WD/WN, moderate distress HEENT: PERRL/EOMI Respiratory: lungs clear, normal breath sounds, no respiratory distress Cardiovascular: regular rate, rhythm Gastrointestinal: soft, abnormal bowel sounds (Hypoactive), tenderness (Significant tenderness in the left lower quadrant with involuntary guarding; patient however has diffuse abdominal tenderness but most pronounced as stated in the left lower quadrant) Extremities: non-tender, normal inspection, no pedal edema Neurologic/Psychiatric: alert, normal mood/affect, oriented x 3 Skin: normal color, warm/dry Progress/Results/Core Measures Results/Orders Lab Results Laboratory Tests Test 10/18/20 13:50 10/18/20 15:17 Range/Units White Blood Count 7.5 4.3-11.0 10^3/uL Red Blood Count 4.78 3.80-5.11 10^6/uL Hemoglobin 8.5 L 11.5-16.0 g/dL Hematocrit 30 L 35-52 % Mean Corpuscular Volume 62 L 80-99 fL Mean Corpuscular Hemoglobin 18 L 25-34 pg Mean Corpuscular Hemoglobin Concent 29 L 32-36 g/dL Red Cell Distribution Width 22.4 H 10.0-14.5 % Platelet Count 454 H 130-400 10^3/uL Mean Platelet Volume 9.0-12.2 fL Immature Granulocyte % (Auto) 0 % Neutrophils (%) (Auto) 74 42-75 % Lymphocytes (%) (Auto) 17 12-44 % Monocytes (%) (Auto) 6 0-12 % Eosinophils (%) (Auto) 2 0-10 % Basophils (%) (Auto) 0 0-10 % Neutrophils # (Auto) 5.6 1.8-7.8 10^3/uL Lymphocytes # (Auto) 1.3 1.0-4.0 10^3/uL Monocytes # (Auto) 0.4 0.0-1.0 10^3/uL Eosinophils # (Auto) 0.2 0.0-0.3 10^3/uL Basophils # (Auto) 0.0 0.0-0.1 10^3/uL Immature Granulocyte # (Auto) 0.0 0.0-0.1 10^3/uL Sodium Level 139 135-145 MMOL/L Potassium Level 3.6 3.6-5.0 MMOL/L Chloride Level 104 98-107 MMOL/L Carbon Dioxide Level 25 21-32 MMOL/L Anion Gap 10 5-14 MMOL/L Blood Urea Nitrogen 5 L 7-18 MG/DL Creatinine 0.79 0.60-1.30 MG/DL Estimat Glomerular Filtration Rate > 60 BUN/Creatinine Ratio 6 Glucose Level 97 70-105 MG/DL Calcium Level 8.7 8.5-10.1 MG/DL Smear Scan YES Urine Color MATILDA H Urine Clarity OTHER Urine pH 6.0 5-9 Urine Specific [place] 1.020 1.016-1.022 Urine Protein NEGATIVE NEGATIVE Urine Glucose (UA) NEGATIVE NEGATIVE Urine Ketones NEGATIVE NEGATIVE Urine Nitrite NEGATIVE NEGATIVE Urine Bilirubin NEGATIVE NEGATIVE Urine Urobilinogen 0.2 < = 1.0 MG/DL Urine Leukocyte Esterase NEGATIVE NEGATIVE Urine RBC (Auto) 1+ H NEGATIVE Urine RBC 2-5 H /HPF Urine WBC 0-2 /HPF Urine Squamous Epithelial Cells 10-25 H /HPF Urine Crystals PRESENT H /LPF Urine Amorphous Sediment MOD BROWN URATES H /LPF Urine Bacteria TRACE /HPF Urine Casts NONE /LPF Urine Mucus LARGE H /LPF Urine Culture Indicated NO Urine Test NEGATIVE NEGATIVE My Orders Orders - YONY CAN MD Ua Culture If Indicated (10/18/20 14:53) Hcg,Qualitative Urine (10/18/20 14:53) Cbc With Automated Diff (10/18/20 14:53) Basic Metabolic Panel (10/18/20 14:53) Ketorolac Injection (Toradol Injection) (10/18/20 15:00) Fentanyl Injection (Sublimaze Injection (10/18/20 15:15) Ondansetron Injection (Zofran Injectio (10/18/20 15:15) Ct Abdomen/Pelvis Wo (10/18/20 15:13) Ciprofloxacin Tablet (Cipro Tablet) (10/18/20 16:32) Metronidazole Tablet (Flagyl Tablet) (10/18/20 16:45) Fentanyl Injection (Sublimaze Injection (10/18/20 16:45) Medications Given in ED Current Medications Medications Dose Ordered Sig/Mir Route Start Time Stop Time Status Last Admin Dose Admin Fentanyl Citrate 50 mcg ONCE ONCE IVP 10/18/20 15:15 10/18/20 15:16 DC 10/18/20 15:17 50 MCG Fentanyl Citrate 50 mcg ONCE ONCE IVP 10/18/20 16:45 10/18/20 16:46 DC 10/18/20 16:43 50 MCG Ketorolac Tromethamine 15 mg ONCE ONCE IVP 10/18/20 15:00 10/18/20 15:01 DC 10/18/20 15:11 15 MG Metronidazole 500 mg ONCE ONCE PO 10/18/20 16:45 10/18/20 16:46 DC 10/18/20 16:42 500 MG Ondansetron HCl 4 mg ONCE ONCE IVP 10/18/20 15:15 10/18/20 15:16 DC 10/18/20 15:16 4 MG Vital Signs/I&O 10/18/20 10/18/20 10/18/20 13:58 15:11 15:17 Temp 36.3 36.3 36.3 Pulse 100 Resp 16 B/P (MAP) 143/97 (112) Pulse Ox 96 O2 Delivery Room Air Blood Pressure Mean: 112 Progress Progress Note : Time: 16:30 Progress Note Patient seen and evaluated, 40-year-old with a history of diverticulitis presents with low left abdominal pain. Evaluation today includes a CBC, BMP, urinalysis and test as well as a CT scan of the abdomen and pelvis without contrast. Patient is noted to be remarkably anemic on her CBC with a hemoglobin of 8. She appears to have a microcytic anemia. Patient is queried on this and states that she does take a [place] [employer] brand iron supplement daily. She denies again black or bloody stools. She does also have evidence of sigmoid diverticulitis acutely. She also has a 7 cm mass that seems to arise from the right ovary in her pelvis. Patient is strongly encouraged to follow-up closely with [facility] and follow-up with an ultrasound of the pelvis to further evaluate what this mass is - cyst or some type of malignancy. Patient verbalizes understanding and states that she will follow-up. I did asked the patient if she felt well enough to be discharged to home on outpatient antibiotics and she desires to be discharged. Plan of care will be to give her a dose of her antibiotics while here in the emergency department. We will send her home on ciprofloxacin and Flagyl. We will also send her home with pain medicines and nausea medicines. Patient is agreeable with this plan of care. She is given strict return precautions. She verbalizes understanding and again desires discharge. Patient will be discharged home. Diagnostic Imaging Diagonstic Imaging: CT Plain Films/CT/US/NM/MRI: abdomen Comments [facility] [place], [place] NAME: BERTO [facility] REC#: [id number] PT STATUS: REG ER : 1980 PHYSICIAN: YONY CAN MD ADMIT DATE: 10/18/20/ER Draft Date of Exam:10/18/20 CT ABDOMEN/PELVIS WO CT ABDOMEN/PELVIS WO TECHNIQUE: Unenhanced CT imaging of the abdomen and pelvis was performed. 2-D reformats are created and submitted for interpretation. Automatic exposure controls were utilized to optimize patient dose. INDICATION: Left lower quadrant pain. History of diverticulitis. COMPARISON: CT abdomen and pelvis from 11/17/2019. FINDINGS: Evaluation of the abdominal viscera is mildly limited without contrast. Lower chest: Linear subsegmental atelectasis in the medial aspect of the right lower lobe. Otherwise, lung bases are clear. No pericardial or pleural effusion. Peritoneum: No free intraperitoneal air or fluid. Liver and biliary system: Unenhanced liver is normal. Cholecystectomy. No pathologic biliary duct dilatation. Spleen and Pancreas: Spleen is normal. Unenhanced pancreas is grossly normal. Adrenals: Normal. tract: No renal or ureteral calculi. No obstructive uropathy. Right ovarian low-attenuation cystic structure measures 7.0 x 5.6 cm. Left ovary and uterus are normal in appearance. GI tract: Stomach is partially filled with fluid and there is no wall thickening. No bowel obstruction. Sigmoid colon diverticulosis has associated wall thickening and surrounding inflammatory stranding indicative of diverticulitis. No abscess or perforation. Normal appendix. Vasculature and Lymph nodes: Normal caliber aorta. No abdominal or pelvic lymphadenopathy. Musculoskeletal: No concerning osseous lesion. IMPRESSION: 1. Acute diverticulitis involving the sigmoid colon. No perforation or abscess. 2. Right ovarian cystic mass measures up to 7 cm and has increased in size since 11/17/2019. This could represent a low-grade ovarian neoplasm versus a recurrent cyst. Recommend follow-up pelvic ultrasound in 6 weeks to assess if this persists. Dictated on workstation # [id number] Dict: 10/18/20 1558 Trans: 10/18/20 1604 [facility] [id number] Interpreted by: DESIRAE MORFIN MD Electronically signed by: Departure Impression Primary Impression: Acute diverticulitis Additional Impressions: Ovarian mass, right Anemia Qualified Codes: D50.9 - Iron deficiency anemia, unspecified Disposition: 01 HOME, SELF-CARE Condition: Stable Departure-Patient Inst. Decision time for Depature: 16:33 Referrals: [facility] (PCP/Family) Primary Care Physician Patient Instructions: Diverticulitis (DC), Ovarian Cyst ED Add. Discharge Instructions: Take the antibiotics as prescribed for the next 7 days. Pain medications and nausea medications as needed. Be careful taking your pain medications as they can make you sleepy. Do not drive while taking these medications. You should start feeling better within about 24 to 48 hours, if you are not feeling better and having worse abdominal pain nausea vomiting, fever or any other emergent concerning symptoms please come back to the emergency room for reevaluation. Please follow-up closely with [facility] regarding the mass on your right ovary. You will need to have an ultrasound of your pelvis done in about 6 weeks to further evaluate this mass. Continue taking your iron supplements daily. Scripts Metronidazole (Flagyl) 500 Mg Tablet 500 MG PO TID, #21 TAB Prov: YONY CAN MD 10/18/20 Ciprofloxacin HCl (Ciprofloxacin HCl) 500 Mg Tablet 500 MG PO BID, #14 TAB Prov: YONY CAN MD 10/18/20 Hydrocodone/Acetaminophen (Hydrocodone-Acetamin 5-325 mg) 1 Each Tablet 1 TAB PO Q6H PRN for PAIN-MODERATE (5-7), #15 TAB Prov: YONY CAN MD 10/18/20 Ondansetron (Ondansetron Odt) 4 Mg Tab.rapdis 4 MG PO Q8H PRN for NAUSEA/VOMITING, #15 TAB Prov: YONY CAN MD 10/18/20 Work/School Note: Work Release Form Date Seen in the Emergency Department: Oct 18, 2020 Return to Work: Oct 23, 2020 YONY CAN MD Oct 18, 2020 15:12
[2020-10-18] MEDS ORDERED: fentaNYL INJ 100 MCG/2 ML AMP IVP ONE ×2 (15:15→16:45)
[2020-10-18] MEDS ORDERED: ONDANSETRON 4 MG/2 ML (SDV) Z0FRAN IVP ONE (15:15)
[2020-10-18 15:17] LABS: BUN/CREATININE RATIO 6; CALCIUM 8.7 MG/DL (8.5-10.1); CARBON DIOXIDE 25 MMOL/L (21-32); CHLORIDE 104 MMOL/L (98-107); CREATININE SERUM 0.79 MG/DL (0.60-1.30); GFR ESTIMATED > 60; GLUCOSE 97 MG/DL (70-105); POTASSIUM 3.6 MMOL/L (3.6-5.0); SODIUM 139 MMOL/L (135-145)
[2020-10-18 15:19] LABS: BASOPHILS % (AUTO) 0 % (0-10); HEMOGLOBIN 8.5 g/dL (11.5-16.0)
[2020-10-18 15:20] LABS: EOSINOPHILS # (AUTO) 0.2 10^3/uL (0.0-0.3); EOSINOPHILS % (AUTO) 2 % (0-10); HEMATOCRIT 30 % (35-52); LYMPHOCYTES # (AUTO) 1.3 10^3/uL (1.0-4.0); LYMPHOCYTES % (AUTO) 17 % (12-44); MEAN CORPUSCULAR HEMOGLOBIN 18 pg (25-34); MEAN CORPUSCULAR HGB CONC 29 g/dL (32-36); MEAN CORPUSCULAR VOLUME 62 fL (80-99); MONOCYTES # (AUTO) 0.4 10^3/uL (0.0-1.0); MONOCYTES % (AUTO) 6 % (0-12); NEUTROPHILS # (AUTO) 5.6 10^3/uL (1.8-7.8); NEUTROPHILS % (AUTO) 74 % (42-75); PLATELET COUNT 454 10^3/uL (130-400); WHITE BLOOD COUNT 7.5 10^3/uL (4.3-11.0)
[2020-10-18 15:25] LABS: SMEAR SCAN COMMENT YES
[2020-10-18 15:27] LABS: BILIRUBIN,URINE NEGATIVE (NEGATIVE); CLARITY,URINE OTHER; COLOR,URINE AMBER; GLUCOSE, URINE (UA) NEGATIVE (NEGATIVE); KETONES,URINE NEGATIVE (NEGATIVE); LEUKOCYTE ESTERASE ,URINE NEGATIVE (NEGATIVE); NITRITE,URINE NEGATIVE (NEGATIVE); PROTEIN,URINE NEGATIVE (NEGATIVE)
[2020-10-18 15:35] LABS: AMORPHOUS SEDIMENT,UR MOD AMOR URATES /LPF; BACTERIA,URINE TRACE /HPF; WBC,URINE 0-2 /HPF
--- NOTE | 2020-10-18 16:04 | Diagnostic Imaging Report ---
CT ABDOMEN/PELVIS WO TECHNIQUE: Unenhanced CT imaging of the abdomen and pelvis was performed. 2-D reformats are created and submitted for interpretation. Automatic exposure controls were utilized to optimize patient dose. INDICATION: Left lower quadrant pain. History of diverticulitis. COMPARISON: CT abdomen and pelvis from 11/17/2019. FINDINGS: Evaluation of the abdominal viscera is mildly limited without contrast. Lower chest: Linear subsegmental atelectasis in the medial aspect of the right lower lobe. Otherwise, lung bases are clear. No pericardial or pleural effusion. Peritoneum: No free intraperitoneal air or fluid. Liver and biliary system: Unenhanced liver is normal. Cholecystectomy. No pathologic biliary duct dilatation. Spleen and Pancreas: Spleen is normal. Unenhanced pancreas is grossly normal. Adrenals: Normal. tract: No renal or ureteral calculi. No obstructive uropathy. Right ovarian low-attenuation cystic structure measures 7.0 x 5.6 cm. Left ovary and uterus are normal in appearance. GI tract: Stomach is partially filled with fluid and there is no wall thickening. No bowel obstruction. Sigmoid colon diverticulosis has associated wall thickening and surrounding inflammatory stranding indicative of diverticulitis. No abscess or perforation. Normal appendix. Vasculature and Lymph nodes: Normal caliber aorta. No abdominal or pelvic lymphadenopathy. Musculoskeletal: No concerning osseous lesion. IMPRESSION: 1. Acute diverticulitis involving the sigmoid colon. No perforation or abscess. 2. Right ovarian cystic mass measures up to 7 cm and has increased in size since 11/17/2019. This could represent a low-grade ovarian neoplasm versus a recurrent cyst. Recommend follow-up pelvic ultrasound in 6 weeks to assess if this persists. Dictated by: Dictated on workstation # [id number]
[2020-10-18] MEDS ORDERED: CIPROFLOXACIN 500 MG (CIPRO) TABLET PO STA (16:32)
[2020-10-18] MEDS ORDERED: METR500T PO (16:38)
[2020-10-18] MEDS ORDERED: ACHD5005 PO (16:38)
[2020-10-18] MEDS ORDERED: CIPR500T5 PO (16:38)
[2020-10-18] MEDS ORDERED: ONDA4TAB11 PO (16:38)
[2020-10-18] MEDS ORDERED: metroNIDAZOLE 500 MG (FLAGYL) TAB PO ONE (16:45)
[2020-10-18 17:01] VITALS: BP 148/98
== END 2020-10-18 17:01 | disposition home or self-care (01) ==
LOC: EDUNIT# 13:21 → ER 13:24
DX: K57.32 Diverticulitis of large intestine without perforation or abscess without bleeding (principal); D50.0 Iron deficiency anemia secondary to blood loss (chronic); N83.201 Unspecified ovarian cyst, right side; K57.90 Diverticulosis of intestine, part unspecified, without perforation or abscess without bleeding; I10 Essential (primary) hypertension; F41.9 Anxiety disorder, unspecified; J45.909 Unspecified asthma, uncomplicated; F17.290 Nicotine dependence, other tobacco product, uncomplicated; Z88.0 Allergy status to penicillin; Z80.0 Family history of malignant neoplasm of digestive organs; Z32.02 Encounter for pregnancy test, result negative
CPT/HCPCS: 36415; 74176; 80048; 81000; 84703; 85025

== ENCOUNTER 2020-12-02 16:57 | Emergency (ER) | payer SELFPAY ==
[~2020-12-02] VITALS: Ht 167 cm; Wt 107.9 kg
[~2020-12-02 16:57] MED LIST changes: +ACHD5005 PO
[2020-12-02] MEDS ORDERED: ASPIRIN 81 MG CHEW (CHILDREN'S ASA) PO ONE (17:15)
--- NOTE | 2020-12-02 17:48 | ED General ---
General Stated Complaint: CHEST/NECK PAIN/NUMBNESS LEFT ARM Source of Information: Patient Exam Limitations: No Limitations History of Present Illness Date Seen by Provider: December 02, 2020 Time Seen by Provider: 17:45 Initial Comments To ER with reports of chest pain shortness of breath for 3 days. She has a bruised sensation to the left side of her chest worsening with arm movement. She has pain in her neck for 3 days. She has asthma and has been wheezing lately. She has had a cough. The left arm is also numb involving the middle ring and pinky finger and This symptom started yesterday. Does not have a personal history of heart disease though her mother at the age of 40 from heart disease she states. Timing/Duration: 2-3 Days Severity: Moderate Associated Systoms: Chest Pain Allergies and Home Medications Allergies Coded Allergies: Penicillins (Verified Allergy, Unknown, lip swelling, 03/18/18) Home Medications Albuterol Sulfate 1 Puff Puff, 2 PUFF IH Q4H PRN for SHORTNESS OF BREATH, (Reported) LAST FILLED 08-05-2018 Cefuroxime Axetil 250 Mg Tablet, 250 MG PO BID Prescribed by: MODESTA SRIVASTAVA on 12/02/202019 Ciprofloxacin HCl 500 Mg Tablet, 500 MG PO BID Prescribed by: MARLIN MEDINA on 03/09/19 1132 Ciprofloxacin HCl 500 Mg Tablet, 500 MG PO BID Prescribed by: RONALD NEWTON on 11/17/19 1407 Ciprofloxacin HCl 500 Mg Tablet, 500 MG PO BID Prescribed by: YONY ACN on 10/18/20 1638 Escitalopram Oxalate 20 Mg Tablet, 10 MG PO DAILY, (Reported) Hydrocodone/Acetaminophen 1 Each Tablet, 1 TAB PO Q6H PRN for PAIN-MODERATE (5- 7) Prescribed by: YONY CAN on 10/18/20 1638 Hydrocodone/Acetaminophen 1 Each Tablet, 1 TAB PO Q4H PRN for PAIN-MODERATE (5- 7) Prescribed by: MODESTA SRIVASTAVA on 12/02/20 1846 Ibuprofen 200 Mg Tablet, 200 MG PO Q6H PRN for PAIN-MILD, (Reported) Loratadine 10 Mg Tablet, 10 MG PO DAILY PRN for ALLERGIES, (Reported) Metronidazole 500 Mg Tablet, 500 MG PO BID Prescribed by: MARLIN MEDINA on 03/09/19 1132 Metronidazole 500 Mg Tablet, 500 MG PO TIDWM Prescribed by: RONALD NEWTON on 11/17/19 1407 Metronidazole 500 Mg Tablet, 500 MG PO TID Prescribed by: YONY CAN on 10/18/20 1638 Mirtazapine 15 Mg Tab.rapdis, 15-30 MG PO HS, (Reported) Multivitamin with Minerals 1 Each Tablet, 1 EACH PO DAILY, (Reported) Ondansetron 4 Mg Tab.rapdis, 4 MG PO Q6H PRN for NAUSEA/VOMITING Prescribed by: RONALD NEWTON on 11/17/19 1407 Ondansetron 4 Mg Tab.rapdis, 4 MG PO Q8H PRN for NAUSEA/VOMITING Prescribed by: YONY CAN on 10/18/20 163 Prednisone 20 Mg Tab, 40 MG PO DAILY Prescribed by: MODESTA SRIVASTAVA on 12/02/20 1846 Patient Home Medication List Home Medication List Reviewed: Yes Review of Systems Review of Systems Constitutional: see HPI, chills, fever EENTM: see HPI Respiratory: see HPI, cough, short of breath, wheezing Cardiovascular: no symptoms reported Genitourinary: no symptoms reported Musculoskeletal: no symptoms reported Skin: no symptoms reported Psychiatric/Neurological: No Symptoms Reported Hematologic/Lymphatic: No Symptoms Reported Immunological/Allergic: no symptoms reported Past Zwsjfqo-Smyqfb-Uhkqtw Hx Patient Social History Type Used: Electronic/Vapor 2nd Hand Smoke Exposure: Yes Recent Hopitalizations: No Immunizations Up To Date PED Vaccines UTD: Yes Seasonal Allergies Seasonal Allergies: Yes Past Medical History Surgeries: Yes Abdominal, Gallbladder Respiratory: Yes Asthma Currently Using CPAP: No Currently Using BIPAP: No Cardiac: Yes Hypertension Neurological: No Female Reproductive Disorders: Denies Genitourinary: Yes Kidney Stones Gastrointestinal: Yes (HIATAL HERNIA REPAIRED) Diverticulosis, Hiatal Hernia Musculoskeletal: Yes Fractures Endocrine: No (OBESITY) HEENT: No Cancer: No Psychosocial: No Anxiety Integumentary: No Blood Disorders: Yes (SICKLE CELL TRAIT) Family Medical History Alzheimer's disease MATERNAL GRANDMOTHER Diabetes mellitus 19 FATHER Hypertension 19 FATHER 19 MOTHER Myocardial infarction 19 MOTHER Neoplasm PATERNAL GRANDMOTHER (COLON CANCER) No Pertinent Family Hx Physical Exam Vital Signs Vital Signs - First Documented 12/02/20 12/02/20 17:40 18:05 Temp 36.2 Pulse 94 Resp 18 B/P (MAP) 141/82 (101) Pulse Ox 95 O2 Delivery Room Air Capillary Refill : Height, Weight, BMI Height: 5'7.00" Weight: 285lbs. 7.0oz. 129.272407wb; 39.00 BMI Method:Stated General Appearance: No Apparent Distress, WD/WN Eyes: Bilateral Eye Normal Inspection, Bilateral Eye PERRL, Bilateral Eye EOMI HEENT: PERRL/EOMI, TMs Normal Neck: Full Range of Motion, Normal Inspection Respiratory: Normal Breath Sounds, No Accessory Muscle Use, No Respiratory Distress, Decreased Breath Sounds, Wheezing Cardiovascular: Regular Rate, Rhythm, Normal Peripheral Pulses Gastrointestinal: Normal Bowel Sounds, Non Tender, Soft Extremity: Normal Capillary Refill, Normal Inspection, Other (Negative Reynaldo sign on the left arm) Neurologic/Psychiatric: Alert, Oriented x3, No Motor/Sensory Deficits Comments Right arm triceps and biceps strength 5 out of 5. Left arm triceps and bicep strength 4 out of 5. Progress/Results/Core Measures Suspected Sepsis SIRS Temperature: Pulse: Respiratory Rate: Laboratory Tests 12/02/20 17:47: White Blood Count 6.8 Blood Pressure / Mean: Laboratory Tests 12/02/20 17:47: Creatinine 0.82, INR Comment 0.9, Platelet Count 381, Total Bilirubin 0.3 Results/Orders Lab Results Laboratory Tests Test 12/02/20 17:47 12/02/20 17:52 12/02/20 19:16 Range/Units White Blood Count 6.8 4.3-11.0 10^3/uL Red Blood Count 4.95 3.80-5.11 10^6/uL Hemoglobin 8.8 L 11.5-16.0 g/dL Hematocrit 31 L 35-52 % Mean Corpuscular Volume 62 L 80-99 fL Mean Corpuscular Hemoglobin 18 L 25-34 pg Mean Corpuscular Hemoglobin Concent 29 L 32-36 g/dL Red Cell Distribution Width 22.8 H 10.0-14.5 % Platelet Count 381 130-400 10^3/uL Mean Platelet Volume 9.0-12.2 fL Immature Granulocyte % (Auto) 0 % Neutrophils (%) (Auto) 64 42-75 % Lymphocytes (%) (Auto) 25 12-44 % Monocytes (%) (Auto) 7 0-12 % Eosinophils (%) (Auto) 4 0-10 % Basophils (%) (Auto) 0 0-10 % Neutrophils # (Auto) 4.4 1.8-7.8 10^3/uL Lymphocytes # (Auto) 1.7 1.0-4.0 10^3/uL Monocytes # (Auto) 0.5 0.0-1.0 10^3/uL Eosinophils # (Auto) 0.2 0.0-0.3 10^3/uL Basophils # (Auto) 0.0 0.0-0.1 10^3/uL Immature Granulocyte # (Auto) 0.0 0.0-0.1 10^3/uL Prothrombin Time 13.0 12.2-14.7 SEC INR Comment 0.9 0.8-1.4 Activated Partial Thromboplast Time 29 24-35 SEC D-Dimer < 0.27 0.00-0.49 UG/ML Sodium Level 139 135-145 MMOL/L Potassium Level 3.4 L 3.6-5.0 MMOL/L Chloride Level 104 98-107 MMOL/L Carbon Dioxide Level 25 21-32 MMOL/L Anion Gap 10 5-14 MMOL/L Blood Urea Nitrogen 7 7-18 MG/DL Creatinine 0.82 0.60-1.30 MG/DL Estimat Glomerular Filtration Rate > 60 BUN/Creatinine Ratio 9 Glucose Level 117 H 70-105 MG/DL Calcium Level 8.8 8.5-10.1 MG/DL Corrected Calcium 8.8 8.5-10.1 MG/DL Magnesium Level 1.9 1.6-2.4 MG/DL Total Bilirubin 0.3 0.1-1.0 MG/DL Aspartate Amino Transf (AST/SGOT) 15 5-34 U/L Alanine Aminotransferase (ALT/SGPT) 15 0-55 U/L Alkaline Phosphatase 83 40-136 U/L Myoglobin 41.0 10.0-92.0 NG/ML Troponin I < 0.028 <0.028 NG/ML B-Type Natriuretic Peptide < 10.0 <100.0 PG/ML Total Protein 7.9 6.4-8.2 GM/DL Albumin 4.0 3.2-4.5 GM/DL Serum Test, Qualitative NEGATIVE NEGATIVE Coronavirus 2019 (LYSSA) Negative Not Detecte Blood Gas Puncture Site LT RADIAL Blood Gas Patient Temperature 37.0 Arterial Blood pH 7.37 7.37-7.43 Arterial Blood Partial Pressure CO2 46 H 35-45 MMHG Arterial Blood Partial Pressure O2 162 H 79-93 MMHG Arterial Blood HCO3 26 23-27 MMOL/L Arterial Blood Total CO2 27.0 21.0-31.0 MMOL/L Arterial Blood Oxygen Saturation 99 94-100 % Arterial Blood Base Excess 0.9 -2.5-2.5 MMOL/L Elijah Test YES-POS Blood Gas Ventilator Setting NO Blood Gas Inspired Oxygen ROOM AIR My Orders Orders - MODESTA SRIVASTAVA APRN Cbc With Automated Diff (12/02/20 17:12) Magnesium (12/02/20 17:12) Chest 1 View, Ap/Pa Only (12/02/20 17:12) Ekg Tracing (12/02/20 17:12) Comprehensive Metabolic Panel (12/02/20 17:12) Myoglobin Serum (12/02/20 17:12) Protime With Inr (12/02/20 17:12) Partial Thromboplastin Time (12/02/20 17:12) O2 (12/02/20 17:12) Monitor-Rhythm Ecg Trace Only (12/02/20 17:12) Lipid Panel (12/03/20 06:00) Ed Iv/Invasive Line Start (12/02/20 17:12) BNP (12/02/20 17:12) Fibrin Degradation Products (12/02/20 17:12) Troponin I (12/02/20 17:12) Aspirin Chewable Tablet (Baby Aspirin Ch (12/02/20 17:15) Ct Cervical Spine Wo (12/02/20 17:44) Covid 19 Inhouse Test (12/02/20 17:48) Hcg,Qualitative Serum (12/02/20 17:49) Fentanyl Inj (Sublimaze Injection) (12/02/20 18:30) Albuterol/Ipra Inhalation Soln (Duoneb I (12/02/20 18:30) Svn Small Volume Nebulizer (12/02/20 18:24) Methylprednisolone Sod Succ (Solu-Medrol (12/02/20 18:45) Rx-Hydrocodone/Apap 5-325 Mg (Rx-Vicodin (12/02/20 19:00) Albuterol Pre-Mix Nebs (Rt) (Proventil (12/02/20 19:00) Svn Small Volume Nebulizer (12/02/20 18:56) Ns Iv 1000 Ml (Sodium Chloride 0.9%) (12/02/20 19:00) Arterial Blood Gas (12/02/20 19:12) Nitroglycerin 0.4 Mg Btl 25's (Nitrostat (12/02/20 19:45) Rx-Hydrocodone/Apap 5-325 Mg (Rx-Vicodin (12/02/20 20:15) Rx-Albuterol Nebs (Rx-Proventil Nebs) (12/02/20 20:22) Morphine Injection (Morphine Injection (12/02/20 20:30) Medications Given in ED Current Medications Medications Dose Ordered Sig/Mir Route Start Time Stop Time Status Last Admin Dose Admin Albuterol Sulfate 10 mg ONCE ONCE INH 12/02/20 19:00 12/02/20 19:01 DC 12/02/20 19:09 10 MG Albuterol/ Ipratropium 3 ml ONCE ONCE INH 12/02/20 18:30 12/02/20 18:31 DC 12/02/20 18:42 3 ML Aspirin 324 mg ONCE ONCE PO 12/02/20 17:15 12/02/20 17:16 DC 12/02/20 17:51 324 MG Fentanyl Citrate 50 mcg ONCE ONCE IVP 12/02/20 18:30 12/02/20 18:31 DC 12/02/20 18:44 50 MCG Methylprednisolone Sodium Succinate 125 mg ONCE ONCE IVP 12/02/20 18:45 12/02/20 18:46 DC 12/02/20 18:46 125 MG Nitroglycerin 1 TAB Q 5 MIN X 3 NEEDED PRN SL 12/02/20 19:45 12/02/20 19:42 0.4 MG Vital Signs/I&O 12/02/20 12/02/20 12/02/20 12/02/20 17:40 18:05 18:42 19:09 Temp 36.2 Pulse 94 Resp 18 B/P (MAP) 141/82 (101) Pulse Ox 95 97 97 O2 Delivery Room Air Room Air Room Air Capillary Refill : Diagnostic Imaging Diagonstic Imaging: Xray, CT Comments [facility], [place] NAME: [facility] REC#: [id number] PT STATUS: REG ER : 1980 PHYSICIAN: MODESTA SRIVASTAVA APRN ADMIT DATE: 12/02/20/ER Draft Date of Exam:12/02/20 CHEST 1 VIEW, AP/PA ONLY INDICATION: Chest pain. EXAMINATION: Frontal chest was obtained at 6:03 p.m. FINDINGS: Heart and mediastinal silhouette are normal in appearance. The lungs are clear. There is no pneumothorax or pleural fluid. IMPRESSION: Negative chest. Dictated on workstation # [id number] Dict: 12/02/20 180 Trans: 12/02/201813 PJE [id number] Interpreted by: VALENTINE GRACE MD Electronically signed by: NAME: [facility] REC#: [id number] PT STATUS: REG ER : 1980 PHYSICIAN: MODESTA SRIVASTAVA APRN ADMIT DATE: 12/02/20/ER Draft Date of Exam:12/02/20 CT CERVICAL SPINE WO INDICATION: Left arm numbness and weakness. TECHNIQUE: Multiple contiguous axial images were obtained through the cervical spine without the use of intravenous contrast. Sagittal and coronal reformations were then performed. Auto Exposure Controls were utilized during the CT exam to meet ALARA standards for radiation dose reduction. COMPARISON: There is no previous CT cervical spine for comparison. FINDINGS: There is no evidence of cervical spine fracture. There is no subluxation or malalignment. The facets and vertebral bodies are in good alignment. There is mild disc space narrowing and osteophyte formation at C5-C6 and C6-C7. There is no overt canal stenosis. IMPRESSION: Mild degenerative findings in the lower cervical spine. No acute fracture, subluxation or malalignment. If symptoms persist, MRI study may be helpful. Dictated on workstation # [id number] Dict: 12/02/201813 Trans: 12/02/20 182 PJE [id number] Interpreted by: VALENTINE GRACE MD Electronically signed by: Departure Communication (Admissions) [id number] to wa. I will put her on some prednisone which will help with both the asthma exacerbation and the radicular symptoms. Hydrocodone for pain. I ordered an MRI outpatient of the cervical spine without contrast to be done on Friday as we do not have it on the weekend. Discussed with her the need for prompt returning to the emergency room for any increasing weakness or increasing pain. 1945-Now reports that she feels like an elephant is sitting on her chest.Cardiac risk factors are HTN, Smoking, Obesity, + Family History. 2013-spoke with Dr. Singh, does not recommend admission, recommends DC to home with reassurance. Impression Primary Impression: Cervical radiculopathy Additional Impressions: Chest pain Asthma exacerbation Disposition: ADMITTED INPATIENT Condition: Stable Admissions Decision to Admit Reason: Admit from ER (General) Decision to Admit/Date: December 02, 2020 Time/Decision to Admit Time: 19:52 Departure-Patient Inst. Decision time for Depature: 18:44 Referrals: [facility] (PCP/Family) Primary Care Physician Patient Instructions: Asthma in Adults, Radiculopathy Add. Discharge Instructions: . Take the steroids and pain medication as directed. Return to ER promptly for any increasing weakness of the arm or any development of weakness to either leg or trouble walking or loss of bowel or bladder control. Alternatively you may go directly to one of the [facility] as we do not have MRI available on the weekends. Otherwise, if symptoms are stable I have you scheduled for an MRI of the neck on Friday. Call the scheduling department listed in the top left corner of the order on Friday morning for a time. Scripts Cefuroxime Axetil (Cefuroxime) 250 Mg Tablet 250 MG PO BID, #10 TAB Prov: MODESTA SRIVASTAVA APRN 12/02/20 Hydrocodone/Acetaminophen (Hydrocodone-Acetamin 5-325 mg) 1 Each Tablet 1 TAB PO Q4H PRN for PAIN-MODERATE (5-7), #14 TAB Prov: MODESTA SRIVASTAVA APRN 12/02/20 Prednisone (Prednisone) 20 Mg Tab 40 MG PO DAILY, #6 TAB 0 Refills Prov: MODESTA SRIVASTAVA APRN 12/02/20 MODESTA SRIVASTAVA APRN December 02, 2020 17:48
[2020-12-02 17:54] LABS: BASOPHILS % (AUTO) 0 % (0-10); EOSINOPHILS # (AUTO) 0.2 10^3/uL (0.0-0.3); EOSINOPHILS % (AUTO) 4 % (0-10); HEMATOCRIT 31 % (35-52); HEMOGLOBIN 8.8 g/dL (11.5-16.0); LYMPHOCYTES # (AUTO) 1.7 10^3/uL (1.0-4.0); LYMPHOCYTES % (AUTO) 25 % (12-44); MEAN CORPUSCULAR HEMOGLOBIN 18 pg (25-34); MEAN CORPUSCULAR HGB CONC 29 g/dL (32-36); MEAN CORPUSCULAR VOLUME 62 fL (80-99); MONOCYTES # (AUTO) 0.5 10^3/uL (0.0-1.0); MONOCYTES % (AUTO) 7 % (0-12); NEUTROPHILS # (AUTO) 4.4 10^3/uL (1.8-7.8); NEUTROPHILS % (AUTO) 64 % (42-75); PLATELET COUNT 381 10^3/uL (130-400); WHITE BLOOD COUNT 6.8 10^3/uL (4.3-11.0)
[2020-12-02 18:04] LABS: INR 0.9 (0.8-1.4)
[2020-12-02 18:05] LABS: CHLORIDE 104 MMOL/L (98-107); POTASSIUM 3.4 MMOL/L (3.6-5.0); SODIUM 139 MMOL/L (135-145)
[2020-12-02 18:06] LABS: CALCIUM 8.8 MG/DL (8.5-10.1)
[2020-12-02 18:07] LABS: GLUCOSE 117 MG/DL (70-105); TOTAL PROTEIN 7.9 GM/DL (6.4-8.2)
[2020-12-02 18:08] LABS: CARBON DIOXIDE 25 MMOL/L (21-32)
[2020-12-02 18:09] LABS: BILIRUBIN,TOTAL 0.3 MG/DL (0.1-1.0)
[2020-12-02 18:10] LABS: ALKALINE PHOSPHATASE 83 U/L (40-136)
[2020-12-02 18:11] LABS: CREATININE SERUM 0.82 MG/DL (0.60-1.30); GFR ESTIMATED > 60
[2020-12-02 18:12] LABS: BUN/CREATININE RATIO 9
[2020-12-02 18:13] LABS: MAGNESIUM 1.9 MG/DL (1.6-2.4)
[2020-12-02 18:14] LABS: ALANINE AMINOTRANSFERASE 15 U/L (0-55)
--- NOTE | 2020-12-02 18:15 | Diagnostic Imaging Report ---
INDICATION: Chest pain. EXAMINATION: Frontal chest was obtained at 6:03 p.m. FINDINGS: Heart and mediastinal silhouette are normal in appearance. The lungs are clear. There is no pneumothorax or pleural fluid. IMPRESSION: Negative chest. Dictated by: Dictated on workstation # [id number]
--- NOTE | 2020-12-02 18:24 | Diagnostic Imaging Report ---
INDICATION: Left arm numbness and weakness. TECHNIQUE: Multiple contiguous axial images were obtained through the cervical spine without the use of intravenous contrast. Sagittal and coronal reformations were then performed. Auto Exposure Controls were utilized during the CT exam to meet ALARA standards for radiation dose reduction. COMPARISON: There is no previous CT cervical spine for comparison. FINDINGS: There is no evidence of cervical spine fracture. There is no subluxation or malalignment. The facets and vertebral bodies are in good alignment. There is mild disc space narrowing and osteophyte formation at C5-C6 and C6-C7. There is no overt canal stenosis. IMPRESSION: Mild degenerative findings in the lower cervical spine. No acute fracture, subluxation or malalignment. If symptoms persist, MRI study may be helpful. Dictated by: Dictated on workstation # [id number]
[2020-12-02] MEDS ORDERED: RT-ALBUTEROL/IPRATROPIUM 3 ML (DUONEB) VIAL INH ONE (18:30)
[2020-12-02] MEDS ORDERED: fentaNYL INJ 100 MCG/2 ML AMP IVP ONE (18:30)
[2020-12-02] MEDS ORDERED: methylPREDNISolone 125 MG (Solu-MEDROL) VIAL IVP ONE (18:45)
[2020-12-02] MEDS ORDERED: PRD20T PO (18:46)
[2020-12-02] MEDS ORDERED: ACHD5005 PO (18:46)
[2020-12-02] MEDS ORDERED: NS IV 1000 ML 1,000 ML IV SCH (19:00)
[2020-12-02] MEDS ORDERED: RT-ALBUTEROL SULF 2.5 MG/3 ML PRE-MIX VIAL INH ONE (19:00)
[2020-12-02 19:19] LABS: ABG BASE EXCESS 0.9 MMOL/L (-2.5-2.5); ABG OXYGEN SATURATION 99 % (94-100); ABG PCO2 46 MMHG (35-45); ABG PH 7.37 (7.37-7.43); ABG PO2 162 MMHG (79-93)
[2020-12-02 19:23] LABS: ALLENS TEST YES-POS; INSPIRED O2 ROOM AIR; VENTILATOR NO
[2020-12-02] MEDS ORDERED: NITROGLYCERIN 0.4 MG SL TABS BTL 25'S SL PRN (19:45)
[2020-12-02] MEDS ORDERED: CEFU250T80 PO (20:20)
[2020-12-02] MEDS ORDERED: RX-ALBUTEROL NEB 2.5 MG/3 ML PACK #5 IH STA (20:22)
[2020-12-02] MEDS ORDERED: morphine INJ 4 MG/ML 1 ML (VIAL/SYRINGE) IVP ONE (20:30)
[2020-12-02] MEDS ORDERED: morphine INJ 10 MG/ML 1ML (SYR OR VIAL) IVP STA (20:38)
[2020-12-02 21:02] VITALS: BP 151/72
== END 2020-12-02 21:02 | disposition other institution (70) ==
LOC: EDUNIT# 16:57 → ER 17:01
DX: M54.12 Radiculopathy, cervical region (principal); R07.9 Chest pain, unspecified; J45.901 Unspecified asthma with (acute) exacerbation; I10 Essential (primary) hypertension; E66.9 Obesity, unspecified; F41.9 Anxiety disorder, unspecified; Z20.822 Contact with and (suspected) exposure to COVID-19; Z77.22 Contact with and (suspected) exposure to environmental tobacco smoke (acute) (chronic); Z68.39 Body mass index [BMI] 39.0-39.9, adult; Z88.0 Allergy status to penicillin; Z79.52 Long term (current) use of systemic steroids; Z79.899 Other long term (current) drug therapy
CPT/HCPCS: 71045; 72125; 80053; 82805; 83735; 83874; 83880; 84484; 84703; 85025; 85379; 85610; 85730; 93005; 93041; 94640 ×2; 94664; 99285; U0002; 36415; 87635; 96374; 96375

== ENCOUNTER 2021-08-30 00:40 | Emergency (ER) | payer SELFPAY ==
[~2021-08-30] VITALS: Ht 170 cm; Wt 107.9 kg
[~2021-08-30 00:40] MED LIST changes: +CEFU250T80 PO
[2021-08-30] MEDS ORDERED: RX-ALBUTEROL NEB 2.5 MG/3 ML PACK #5 IH STA (01:24)
[2021-08-30] MEDS ORDERED: RX-ALBUTEROL INHALER 8.5 GM HFA (PROAIR) IH STA (01:24)
[2021-08-30] MEDS ORDERED: ACETAMINOPHEN 500 MG TAB (TYLENOL) PO ONE (01:30)
--- NOTE | 2021-08-30 01:38 | ED Cough/URI ---
General Chief Complaint: COVID19 Suspect/Confirmed Stated Complaint: SOB,FEVER 102. Nursing Triage Note: TO ED VIA POV AND AMBULATORY TO ROOM 10. STATES FRIDAY STARTED TO HAVE COUGH, N/V, AND THEN FEVER STARTED YESTERDAY. 2100- LAST IBUPROFEN. Source: patient Exam Limitations: no limitations History of Present Illness Date Seen by Provider: Aug 30, 2021 Time Seen by Provider: 01:10 Initial Comments Patient presents to the ER by private conveyance with chief complaint of wheezing and upper respiratory tract symptoms of cough, fever of 102.5 before she left the house. Symptoms been going on for 1 day. She has a history of receiving the flu vaccine this season but she has not had a Covid vaccine. She has a history of asthma. She just ran out of her albuterol nebulizer, juice and her ProAir inhaler also ran out tonight. She feels like they are helping a little bit but not as much as usual. She remarks they are rather old. She does not use inhaled corticosteroids. She has not been on steroids recently. She has taken some ibuprofen about 3 hours ago. No nausea vomiting diarrhea Allergies and Home Medications Allergies Coded Allergies: Penicillins (Verified Allergy, Unknown, lip swelling, 03/18/18) Patient Home Medication List Home Medication List Reviewed: Yes Albuterol Sulfate (Proair Hfa) 1 Puff Puff, 2 PUFF IH Q4H PRN for SHORTNESS OF BREATH, (Reported) Entered as Reported by: APOLONIA CEBALLOS on 03/08/19 0755 Cefuroxime Axetil (Cefuroxime) 250 Mg Tablet, 250 MG PO BID Prescribed by: MODESTA SRIVASTAVA on 12/02/202019 Ciprofloxacin HCl (Cipro) 500 Mg Tablet, 500 MG PO BID Prescribed by: MARLIN MEDINA on 03/09/19 1132 Ciprofloxacin HCl (Ciprofloxacin HCl) 500 Mg Tablet, 500 MG PO BID Prescribed by: RONALD NEWTON on 11/17/19 1407 Ciprofloxacin HCl (Ciprofloxacin HCl) 500 Mg Tablet, 500 MG PO BID Prescribed by: YONY CAN on 10/18/20 1638 Escitalopram Oxalate (Lexapro) 20 Mg Tablet, 10 MG PO DAILY, (Reported) Entered as Reported by: APOLONIA CEBALLOS on 03/08/19 0755 Hydrocodone/Acetaminophen (Hydrocodone-Acetamin 5-325 mg) 1 Each Tablet, 1 TAB PO Q6H PRN for PAIN-MODERATE (5-7) Prescribed by: YONY CAN on 10/18/20 1638 Hydrocodone/Acetaminophen (Hydrocodone-Acetamin 5-325 mg) 1 Each Tablet, 1 TAB PO Q4H PRN for PAIN-MODERATE (5-7) Prescribed by: MODESTA SRIVASTAVA on 12/02/20 1846 Ibuprofen (Ibuprofen) 200 Mg Tablet, 200 MG PO Q6H PRN for PAIN-MILD, (Reported) Entered as Reported by: APOLONIA CEBALLOS on 03/08/19 075 Loratadine (Loratadine) 10 Mg Tablet, 10 MG PO DAILY PRN for ALLERGIES, (Reported) Entered as Reported by: APOLONIA CEBALLOS on 03/08/19 075 Metronidazole (Flagyl) 500 Mg Tablet, 500 MG PO BID Prescribed by: MARLIN MEDINA on 03/09/19 1132 Metronidazole (Flagyl) 500 Mg Tablet, 500 MG PO TIDWM Prescribed by: RONALD NEWTON on 11/17/19 1407 Metronidazole (Flagyl) 500 Mg Tablet, 500 MG PO TID Prescribed by: YONY CAN on 10/18/20 1638 Mirtazapine (Remeron) 15 Mg Tab.rapdis, 15-30 MG PO HS, (Reported) Entered as Reported by: APOLONIA CEBALLOS on 03/08/19 075 Multivitamin with Minerals (One Daily Complete) 1 Each Tablet, 1 EACH PO DAILY, (Reported) Entered as Reported by: APOLONIA CEBALLOS on 03/08/19 075 Ondansetron (Ondansetron Odt) 4 Mg Tab.rapdis, 4 MG PO Q6H PRN for NAUSEA/VOMITING Prescribed by: RONALD NEWTON on 11/17/19 1407 Ondansetron (Ondansetron Odt) 4 Mg Tab.rapdis, 4 MG PO Q8H PRN for NAUSEA/VOMITI NG Prescribed by: YONY CAN on 10/18/20 1638 Prednisone (Prednisone) 20 Mg Tab, 40 MG PO DAILY Prescribed by: MODESTA SRIVASTAVA on 12/02/20 1846 Review of Systems Review of Systems Constitutional: No chills, No diaphoresis EENTM: No ear discharge, No ear pain Respiratory: No cough, No short of breath Cardiovascular: No edema, No Hx of Intervention, No palpitations Gastrointestinal: No abdominal pain, No constipation, No diarrhea, No heartburn, No loss of appetite, No nausea Genitourinary: No discharge, No dysuria Musculoskeletal: No back pain, No joint pain All Other Systems Reviewed Negative Unless Noted: Yes Past Vlgkzdq-Wsllmi-Txieir Hx Patient Social History Tobacco Use?: No Use of E-Cig and/or Vaping dev: No Substance use?: No Immunizations Up To Date PED Vaccines UTD: Yes Seasonal Allergies Seasonal Allergies: Yes Past Medical History Surgeries: Yes Abdominal, Gallbladder Respiratory: Yes Asthma Currently Using CPAP: No Currently Using BIPAP: No Cardiac: Yes Hypertension Neurological: No Female Reproductive Disorders: Denies Genitourinary: Yes Kidney Stones Gastrointestinal: Yes (HIATAL HERNIA REPAIRED) Diverticulosis, Hiatal Hernia Musculoskeletal: Yes Fractures Endocrine: No (OBESITY) HEENT: No Cancer: No Psychosocial: No Anxiety Integumentary: No Blood Disorders: Yes (SICKLE CELL TRAIT) Family Medical History Alzheimer's disease MATERNAL GRANDMOTHER Diabetes mellitus 19 FATHER Hypertension 19 FATHER 19 MOTHER Myocardial infarction 19 MOTHER Neoplasm PATERNAL GRANDMOTHER (COLON CANCER) No Pertinent Family Hx Physical Exam Vital Signs - First Documented 08/30/21 01:07 Temp 38.9 Pulse 96 Resp 20 B/P (MAP) 142/95 (111) Pulse Ox 100 O2 Delivery Room Air Capillary Refill : Less Than 3 Seconds Height: 5'7.00" Weight: 285lbs. 7.0oz. 129.358319yd; 37.00 BMI Method:Stated General Appearance: WD/WN, no apparent distress Eyes: Bilateral Eye Normal Inspection, Bilateral Eye PERRL, Bilateral Eye EOMI HEENT: PERRL/EOMI, normal ENT inspection, TMs normal, pharynx normal Neck: full range of motion, supple, normal inspection Respiratory: no respiratory distress (100% on room air nonlabored breathing.), no accessory muscle use, wheezing, expiration Cardiovascular: normal peripheral pulses, regular rate, rhythm Gastrointestinal: non tender, soft Neurologic/Psychiatric: alert, normal mood/affect, oriented x 3 Skin: normal color, warm/dry Progress/Results/Core Measures Suspected Sepsis SIRS Temperature: Pulse: 96 Respiratory Rate: 20 Blood Pressure 142 /95 Mean: 111 Results/Orders Lab Results Laboratory Tests Test 08/30/21 00:13 Range/Units My Orders Orders - RONALD NEWTON Rx-Albuterol Inhaler (Rx-Ventolin Hfa In (08/30/21 01:24) Influenza A & B Antigens (08/30/21 01:24) Coronavirus Sars-Cov-2 So 2019 (08/30/21 01:24) Acetaminophen Tablet (Tylenol Tablet) (08/30/21 01:30) Rx-Albuterol Nebs (Rx-Proventil Nebs) (08/30/21 01:24) Vital Signs/I&O 08/30/21 01:07 Temp 38.9 Pulse 96 Resp 20 B/P (MAP) 142/95 (111) Pulse Ox 100 O2 Delivery Room Air Capillary Refill : Less Than 3 Seconds Blood Pressure Mean: 111 Progress Note : Time: 01:35 Progress Note Patient is oxygenating well and not tripoding or struggling to breathe. She does have some wheezing so we will give her a take-home ProAir to get her through the night and some take-home albuterol solution. She has a compressor. We will give her a prescription and get a send out Covid as well as give her a flu antigen test. Tylenol for fever. Departure Impression Primary Impression: Asthma attack Qualified Codes: J45.901 - Unspecified asthma with (acute) exacerbation Additional Impression: Viral upper respiratory tract infection with cough Disposition: 01 HOME, SELF-CARE Condition: Stable Departure-Patient Inst. Decision time for Depature: 01:40 Referrals: [facility] (PCP/Family) Primary Care Physician Patient Instructions: Viral Upper Respiratory Infection, Adult (DC) Add. Discharge Instructions: Drink lots of fluids. Albuterol or ProAir every 4 hours as necessary for wheezing or shortness of breath. Tessalon Perles 1 capsule every 6 hours as necessary for cough. Zofran/ondansetron 1 tablet every 6 hours as necessary for nausea or vomiting. Prednisone 2 tablets daily to help with your asthma for the next 5 days. Stay home for at least 5 days and you are fever free. Someone will call you with the result of your Covid swab in the next 2 to 3 days. All discharge instructions reviewed with patient and/or family. Voiced understanding. Scripts Benzonatate (TESSALON PERLES) 100 Mg Capsule 100 MG PO Q6H PRN for COUGH, #20 CAP 0 Refills Prov: RONALD NEWTON 08/30/21 Prednisone (Prednisone) 20 Mg Tab 40 MG PO DAILY for 5 Days, #10 TAB 0 Refills Prov: RONALD NEWTON 08/30/21 Ondansetron (Ondansetron Odt) 4 Mg Tab.rapdis 4 MG PO Q6H PRN for NAUSEA/VOMITING, #15 TAB 0 Refills Prov: RONALD NEWTON 08/30/21 Albuterol Sulfate (Albuterol Sulfate) 2.5 Mg/3 Ml Vial.neb 2.5 MG INH Q4H PRN for WHEEZING, #50 EA 1 Refill Prov: RONALD NEWTON 08/30/21 RONALD NEWTON Aug 30, 2021 01:37
[2021-08-30] MEDS ORDERED: ONDA4TAB11 PO (01:46)
[2021-08-30] MEDS ORDERED: ALBU2.5V4 INH (01:46)
[2021-08-30] MEDS ORDERED: PRD20T PO (01:46)
[2021-08-30] MEDS ORDERED: BENZ100C18 PO (01:46)
[2021-08-30 02:00] VITALS: BP 160/102
== END 2021-08-30 02:00 | disposition home or self-care (01) ==
LOC: EDUNIT# 00:40 → ER 00:45
DX: J45.909 Unspecified asthma, uncomplicated (principal); J06.9 Acute upper respiratory infection, unspecified; I10 Essential (primary) hypertension; F41.9 Anxiety disorder, unspecified; E66.9 Obesity, unspecified; Z20.822 Contact with and (suspected) exposure to COVID-19; Z68.37 Body mass index [BMI] 37.0-37.9, adult
CPT/HCPCS: 87635; 87804; 99283

== ENCOUNTER 2022-02-05 11:22 | Observation (INO) | payer SELFPAY ==
[~2022-02-05] VITALS: Ht 170 cm; Wt 116.0 kg
[~2022-02-05 11:22] MED LIST changes: +ALBU2.5V4 INH; +BENZ100C18 PO
--- NOTE | 2022-02-05 13:44 | ED Integumentary General ---
General Chief Complaint: Skin/Wound Problems Stated Complaint: RECTAL ABCESS Nursing Triage Note: Pt c/o rectal abcess x2 days, fever and chills Source: patient Exam Limitations: no limitations History of Present Illness Date Seen by Provider: Feb 05, 2022 Time Seen by Provider: 13:44 Initial Comments This is a 42-year-old female who presented to the ER with complaints of a rectal abscess for the past 2 days accompanied with fever and chills. States that the highest her temperature has been at home was 102.0 Fahrenheit. She has reported increased fatigue and lethargy since abscess started. States she has history of prior rectal abscess and this feels similar in nature. Allergies and Home Medications Allergies Coded Allergies: Penicillins (Verified Allergy, Unknown, lip swelling, 03/18/18) Patient Home Medication List Home Medication List Reviewed: Yes Albuterol Sulfate (Proair Hfa) 90 Mcg Hfa.aer.ad, 2 PUFF IH Q4H PRN for SHORTNESS OF BREATH Prescribed by: HAYDEE MEDINA on 02/07/22 1307 Dexamethasone (Dexamethasone) 6 Mg Tablet, 6 MG PO DAILY@0700 Prescribed by: HAYDEE MEDINA on 02/07/22 1307 Famotidine (Famotidine) 20 Mg Tablet, 20 MG PO DAILY, (Reported) Entered as Reported by: APOLONIA CEBALLOS on 02/06/22 1545 Last Action: Reviewed Review of Systems Review of Systems Constitutional: chills, fever EENTM: no symptoms reported Respiratory: no symptoms reported Cardiovascular: no symptoms reported Gastrointestinal: no symptoms reported Genitourinary: see HPI Musculoskeletal: no symptoms reported Skin: no symptoms reported Psychiatric/Neurological: No Symptoms Reported Endocrine: No Symptoms Reported Hematologic/Lymphatic: No Symptoms Reported Past Ksnbfjx-Tdctxu-Twpyre Hx Patient Social History Tobacco Use?: Yes Tobacco type used: Cigarettes Smoking Status: Current Everyday Smoker Substance use?: Yes Substance type: Marijuana Alcohol Use?: Yes Alcohol Frequency: Couple times a week Pt feels they are or have been: No Immunizations Up To Date PED Vaccines UTD: Yes Seasonal Allergies Seasonal Allergies: Yes Past Medical History Surgery/Hospitalization HX: ASTHMA, DIVERTICULITIS Surgeries: Yes Abdominal, Gallbladder Respiratory: Yes Asthma Currently Using CPAP: No Currently Using BIPAP: No Cardiac: Yes Hypertension Neurological: No Female Reproductive Disorders: Denies Genitourinary: Yes Kidney Stones Gastrointestinal: Yes (HIATAL HERNIA REPAIRED) Diverticulosis, Hiatal Hernia Musculoskeletal: Yes Fractures Endocrine: No (OBESITY) HEENT: No Cancer: No Psychosocial: No Anxiety Integumentary: No Blood Disorders: Yes (SICKLE CELL TRAIT) Family Medical History Alzheimer's disease MATERNAL GRANDMOTHER Diabetes mellitus 19 FATHER Hypertension 19 FATHER 19 MOTHER Myocardial infarction 19 MOTHER Neoplasm PATERNAL GRANDMOTHER (COLON CANCER) No Pertinent Family Hx Physical Exam Vital Signs Vital Signs - First Documented 02/05/22 12:02 Temp 37.3 Pulse 101 Resp 20 Pulse Ox 96 O2 Delivery Room Air Capillary Refill : Less Than 3 Seconds General Appearance: WD/WN, no apparent distress HEENT: PERRL/EOMI, normal ENT inspection, pharynx normal Neck: full range of motion, normal inspection Cardiovascular: regular rate, rhythm, no murmur Respiratory: lungs clear, normal breath sounds, no respiratory distress, no accessory muscle use Gastrointestinal: normal bowel sounds, non tender, soft Extremities: normal range of motion, normal inspection Neurologic/Psychiatric: no motor/sensory deficits, alert, normal mood/affect, oriented x 3 Skin: normal color, warm/dry Skin Problem Location: other (perianal) Skin Problem Character: tenderness Progress/Results/Core Measures Results/Orders Lab Results Laboratory Tests Test 02/05/22 14:20 Range/Units White Blood Count 3.5 L 4.3-11.0 10^3/uL Red Blood Count 4.44 3.80-5.11 10^6/uL Hemoglobin 6.5 *L 11.5-16.0 g/dL Hematocrit 25 L 35-52 % Mean Corpuscular Volume 55 L 80-99 fL Mean Corpuscular Hemoglobin 15 L 25-34 pg Mean Corpuscular Hemoglobin Concent 26 L 32-36 g/dL Red Cell Distribution Width 23.7 H 10.0-14.5 % Platelet Count 255 130-400 10^3/uL Mean Platelet Volume 9.0-12.2 fL Immature Granulocyte % (Auto) 0 % Neutrophils (%) (Auto) 51 42-75 % Lymphocytes (%) (Auto) 29 12-44 % Monocytes (%) (Auto) 17 H 0-12 % Eosinophils (%) (Auto) 2 0-10 % Basophils (%) (Auto) 1 0-10 % Neutrophils # (Auto) 1.8 1.8-7.8 10^3/uL Lymphocytes # (Auto) 1.0 1.0-4.0 10^3/uL Monocytes # (Auto) 0.6 0.0-1.0 10^3/uL Eosinophils # (Auto) 0.1 0.0-0.3 10^3/uL Basophils # (Auto) 0.0 0.0-0.1 10^3/uL Immature Granulocyte # (Auto) 0.0 0.0-0.1 10^3/uL Percent Immature Platelet Fraction 6.8 0.0-7.6 % Sodium Level 135 135-145 MMOL/L Potassium Level 3.5 L 3.6-5.0 MMOL/L Chloride Level 102 98-107 MMOL/L Carbon Dioxide Level 24 21-32 MMOL/L Anion Gap 9 5-14 MMOL/L Blood Urea Nitrogen 7 7-18 MG/DL Creatinine 0.78 0.60-1.30 MG/DL Estimat Glomerular Filtration Rate 97 BUN/Creatinine Ratio 9 Glucose Level 90 70-105 MG/DL Calcium Level 8.3 L 8.5-10.1 MG/DL Corrected Calcium 8.5 8.5-10.1 MG/DL Total Bilirubin 0.5 0.1-1.0 MG/DL Aspartate Amino Transf (AST/SGOT) 19 5-34 U/L Alanine Aminotransferase (ALT/SGPT) 10 0-55 U/L Alkaline Phosphatase 67 40-136 U/L C-Reactive Protein High Sensitivity 2.38 H 0.00-0.50 MG/DL Total Protein 7.7 6.4-8.2 GM/DL Albumin 3.7 3.2-4.5 GM/DL Smear Scan My Orders Orders - DEMAR SANCHEZ POINTER HELPER Cbc With Automated Diff (02/05/22 13:43) Comprehensive Metabolic Panel (02/05/22 13:43) Ed Iv/Invasive Line Start (02/05/22 13:43) Ketorolac Injection (Toradol Injection) (02/05/22 13:45) Hs C Reactive Protein (02/05/22 13:44) Lidocaine 1% Inj 20 Ml (Xylocaine 1% Inj (02/05/22 14:30) Type And Screen (02/05/22 14:49) Red Cells Leukocytes Reduced (02/05/22 14:49) Ct Abdomen/Pelvis W (02/05/22 15:03) Iohexol Injection (Omnipaque 350 Mg/Ml 1 (02/05/22 15:15) Received Contrast (Hold Metformin- Contr (02/05/22 15:15) Ns (Ivpb) (Sodium Chloride 0.9% Ivpb Bag (02/05/22 15:15) Ct Pelvis Wo (02/05/22 15:22) Medications Given in ED Current Medications Medications Dose Ordered Sig/Mir Route Start Time Stop Time Status Last Admin Dose Admin Iohexol 100 ml ONCE ONCE IV 02/05/22 15:15 02/05/22 15:16 DC 02/05/22 15:14 100 ML Ketorolac Tromethamine 30 mg ONCE ONCE IVP 02/05/22 13:45 02/05/22 13:46 DC 02/05/22 14:21 30 MG Sodium Chloride 100 ml ONCE ONCE IV 02/05/22 15:15 02/05/22 15:16 DC 02/05/22 15:14 80 ML Vital Signs/I&O 02/05/22 12:02 Temp 37.3 Pulse 101 Resp 20 B/P (MAP) Pulse Ox 96 O2 Delivery Room Air Diagnostic Imaging Diagonstic Imaging: CT Comments [facility], [place] NAME: BERTO [facility]LAND [facility] REC#: [id number] PT STATUS: REG ER : 1980 PHYSICIAN: DEMAR SANCHEZ APRN ADMIT DATE: 02/05/22/ER Signed Date of Exam:02/05/22 CT ABDOMEN/PELVIS W PROCEDURE: CT abdomen and pelvis with contrast. TECHNIQUE: Multiple contiguous axial images were obtained through the abdomen and pelvis after administration of intravenous contrast. Auto Exposure Controls were utilized during the CT exam to meet ALARA standards for radiation dose reduction. All CT scans use one or more of the following dose optimizing techniques: automated exposure control, MA and/or KvP adjustment based on patient size and exam type or iterative reconstruction. INDICATION: Perirectal abscess and fever. COMPARISONS: 10/18/2020 and 11/17/2019 There is no focal hepatic, pancreatic or splenic abnormality. The approximately 1.3 cm left suprarenal nodule is unchanged and may be related to adrenal gland adenoma. No right adrenal abnormality is seen. Gallbladder is surgically absent. There is no evidence of renal abnormality. No free fluid is seen in the abdomen or pelvis. The fibroid nature of the uterus is stable with fundal fibroid reaching approximately 5.5 cm in maximal diameter. The low density masslike lesion in the right adnexal region now measures approximately 4.5 x 5.0 cm. This has been present on previous studies and has not shown interval growth since the most recent exam. Unopacified bladder is unremarkable. IMPRESSION: No acute abnormality or adverse change is identified. There are numerous diverticula and a prominent uterine fibroid similar to previous study. There is no evidence of active inflammation. Masslike structure in the right adnexal region is again demonstrated without evidence of interval growth. This could be further assessed with ultrasonography or MRI. Laparoscopy could also be considered if not previously performed. l Dictated by: Dictated on workstation # [id number] Dict: 02/05/22 1530 Trans: 02/05/22 1656 [facility] [id number] Interpreted by: BEAU RIVERA MD Electronically signed by: BEAU RIVERA MD 02/05/22 1656 Reviewed: Reviewed by Me Departure Communication (Admissions) Time/Spoke to Admitting Phy: 15:20 Dr. Medina Time/Spoke to Consulting Phy: 15:27 Dr. Cabrales Impression Primary Impression: Anemia Disposition: ADMITTED INPATIENT Condition: Stable Admissions Decision to Admit Reason: Admit from ER (General) Decision to Admit/Date: Feb 05, 2022 Time/Decision to Admit Time: 15:10 Departure-Patient Inst. Referrals: [facility] (PCP/Family) Primary Care Physician Scripts Dexamethasone (Dexamethasone) 6 Mg Tablet 6 MG PO DAILY@0700, #2 TAB 0 Refills Prov: HAYDEE MEDINA MD 02/07/22 Albuterol Sulfate (Proair Hfa) 90 Mcg Hfa.aer.ad 2 PUFF IH Q4H PRN for SHORTNESS OF BREATH, #1 EACH 0 Refills Prov: HAYDEE MEDINA MD 02/07/22 DEMAR SANCHEZ POINTER HELPER Feb 05, 2022 13:44
[2022-02-05] MEDS ORDERED: KETOROLAC 30 MG/ML VIAL IVP ONE (13:45)
[2022-02-05] MEDS ORDERED: LIDOCAINE 1% INJ 20 ML VIAL INJ ONE (14:30)
[2022-02-05 14:36] LABS: BASOPHILS % (AUTO) 1 % (0-10); HEMATOCRIT 25 % (35-52)
[2022-02-05 14:38] LABS: EOSINOPHILS # (AUTO) 0.1 10^3/uL (0.0-0.3); EOSINOPHILS % (AUTO) 2 % (0-10); LYMPHOCYTES % (AUTO) 29 % (12-44); MEAN CORPUSCULAR HEMOGLOBIN 15 pg (25-34); MEAN CORPUSCULAR HGB CONC 26 g/dL (32-36); MEAN CORPUSCULAR VOLUME 55 fL (80-99); MONOCYTES # (AUTO) 0.6 10^3/uL (0.0-1.0); MONOCYTES % (AUTO) 17 % (0-12); NEUTROPHILS # (AUTO) 1.8 10^3/uL (1.8-7.8); NEUTROPHILS % (AUTO) 51 % (42-75); PLATELET COUNT 255 10^3/uL (130-400); WHITE BLOOD COUNT 3.5 10^3/uL (4.3-11.0)
[2022-02-05 14:46] LABS: ALBUMIN 3.7 GM/DL (3.2-4.5); POTASSIUM 3.5 MMOL/L (3.6-5.0)
[2022-02-05 14:47] LABS: CALCIUM 8.3 MG/DL (8.5-10.1); HEMOGLOBIN 6.5 g/dL (11.5-16.0)
[2022-02-05 14:48] LABS: TOTAL PROTEIN 7.7 GM/DL (6.4-8.2)
[2022-02-05 14:50] LABS: BILIRUBIN,TOTAL 0.5 MG/DL (0.1-1.0)
[2022-02-05 14:52] LABS: CREATININE SERUM 0.78 MG/DL (0.60-1.30)
[2022-02-05] MEDS ORDERED: NS 100 ML (IVPB) BAG IV ONE (15:15)
[2022-02-05] MEDS ORDERED: HOLD METFORMIN - RECEIVED CONTRAST 20 ML VIAL IV SCH (15:15)
[2022-02-05] MEDS ORDERED: IOHEXOL 350 MG/ML 100 ML (OMNIPAQUE 350) VIAL IV ONE (15:15)
--- NOTE | 2022-02-05 15:50 | Diagnostic Imaging Report ---
PROCEDURE: CT pelvis without contrast. TECHNIQUE: Multiple contiguous axial images were obtained through the pelvis without the use of intravenous contrast. Sagittal and coronal reformations were performed. Auto Exposure Controls were utilized during the CT exam to meet ALARA standards for radiation dose reduction. INDICATION: Perirectal abscess COMPARISON: CT abdomen and pelvis with IV contrast performed earlier same day. FINDINGS: There are no inflammatory changes in the perirectal or perianal soft tissues. The ischioanal fat is normal in appearance. No gas or fluid collection within the perineal fat. No free pelvic fluid. Bilateral adnexal masses are most likely ovarian cysts. There is potential exophytic fibroid arising from the fundus. No inguinal lymphadenopathy. No osseous erosions. Contrast within urinary bladder is due to the CT abdomen and pelvis was performed concurrently. IMPRESSION: 1. No acute osseous abnormality within the pelvis. 2. No perianal inflammatory change or abscess. Dictated by: Dictated on workstation # [id number]
--- NOTE | 2022-02-05 15:54 | Diagnostic Imaging Report ---
PROCEDURE: CT abdomen and pelvis with contrast. TECHNIQUE: Multiple contiguous axial images were obtained through the abdomen and pelvis after administration of intravenous contrast. Auto Exposure Controls were utilized during the CT exam to meet ALARA standards for radiation dose reduction. All CT scans use one or more of the following dose optimizing techniques: automated exposure control, MA and/or KvP adjustment based on patient size and exam type or iterative reconstruction. INDICATION: Perirectal abscess and fever. COMPARISONS: 10/18/2020 and 11/17/2019 There is no focal hepatic, pancreatic or splenic abnormality. The approximately 1.3 cm left suprarenal nodule is unchanged and may be related to adrenal gland adenoma. No right adrenal abnormality is seen. Gallbladder is surgically absent. There is no evidence of renal abnormality. No free fluid is seen in the abdomen or pelvis. The fibroid nature of the uterus is stable with fundal fibroid reaching approximately 5.5 cm in maximal diameter. The low density masslike lesion in the right adnexal region now measures approximately 4.5 x 5.0 cm. This has been present on previous studies and has not shown interval growth since the most recent exam. Unopacified bladder is unremarkable. IMPRESSION: No acute abnormality or adverse change is identified. There are numerous diverticula and a prominent uterine fibroid similar to previous study. There is no evidence of active inflammation. Masslike structure in the right adnexal region is again demonstrated without evidence of interval growth. This could be further assessed with ultrasonography or MRI. Laparoscopy could also be considered if not previously performed. l Dictated by: Dictated on workstation # [id number]
--- NOTE | 2022-02-05 16:45 | History & Physical ---
MAKAYLA LATIF 02/05/22 1644: HPI History of Present Illness: Patient is a 42 year old female with a past medical history of HTN, asthma, and menorrhagia that presents to [facility] ER with complaints of a rectal abscess, fever, fatigue, and malaise. Patient states that her pain started yesterday and that it started in her perianal region. She states the pain feels like pressure and that it has been constant. Associated symptoms include fatigue, headache, fever, body aches. Patient states the only thing that has given her relief was sitting in a hot tub for a little bit yesterday. Patient states that her body aches are all over, but the worst in her legs. She rates her discomfort an 8/10. In the ER, patient was seen by general surgery and was noted to not have a visible abscess or area of induration. Patient was noted on CT to have a uterine fibroid measuring 5.5 cm at maximal width and a right adnexal mass measuring 4.5 x 5.0 cm. Patient was also visibly fatigued and fell asleep while talking to me multiple times. Source: patient Exam Limitations: no limitations Date seen by provider: Feb 05, 2022 Time Seen by Provider: 16:38 Attending Physician [place] PCP Admitting Physician: Attending Physician: Consult Date of Admission Home Medications Home Medications Reviewed patient Home Medication Reconciliation performed by pharmacy medication reconciliations obstetrics technician and/or nursing. Patients Allergies have been reviewed. 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) Drug of Choice: MARIJUANA Smoking Status: Current Everyday Smoker (10 year pack history (1 PPD x10 years)) 2nd Hand Smoke Exposure: Yes Recent Hopitalizations: No Alcohol Use?: Yes Substance type: Marijuana Tobacco type used: Cigarettes Family Medical History Significant Family History: Heart Disease (Mother CA at 43), CAD Under 55 Years Old, Diabetes (Father), Hypertension (Father), Psychiatric Problems (Alzheimer's - Gma), Other Conditions/Hx (Alcohol abuse disorder) Family History: Alzheimer's disease MATERNAL GRANDMOTHER Diabetes mellitus 19 FATHER Hypertension 19 FATHER 19 MOTHER Myocardial infarction 19 MOTHER Neoplasm PATERNAL GRANDMOTHER (COLON CANCER) Review of Systems ([facility]) Constitutional: chills, fever, malaise, weakness Respiratory: dyspnea on exertion, wheezing Cardiovascular: No chest pain; palpitations Gastrointestinal: RLQ, LLQ, constipation, nausea, vomiting Genitourinary: No decreased output, No dysuria, No frequency; other (Urine is orange in color) Musculoskeletal: joint pain, muscle pain, other (general body aches) Physical Exam-([facility]) Physical Exam Vital Signs VS - Last 72 Hours, by Label 02/05/22 02/05/22 02/05/22 12:02 17:05 17:25 Temp 37.3 37.2 Pulse 101 85 90 Resp 20 16 20 B/P (MAP) 115/66 142/88 (106) Pulse Ox 96 97 99 O2 Delivery Room Air Room Air Room Air Capillary Refill : Less Than 3 Seconds General Appearance: WD/WN, no apparent distress, obese HEENT: PERRL/EOMI Neck: supple, normal inspection Respiratory: no respiratory distress, no accessory muscle use, decreased breath sounds, wheezing, expiration Cardiovascular: no edema, no gallop, no murmur, tachycardia Gastrointestinal: normal bowel sounds, non tender, soft, no organomegaly, no pulsatile mass, other (Suprapubic tenderness) Genital/Rectal: No tenderness; other (No abscess noted, no area of erythema, no tenderness around perianal region) Neurologic/Psychiatric: alert, oriented x 3 Skin: normal color, warm/dry Assessment/Plan Assessment/Plan Admission Dx Symptomatic anemia Right-sided pelvic adnexal mass Suspected infectious process Reason for Inpatient Admission: Symptomatic anemia requiring blood transufsion Assessment & Plan Symptomatic anemia * Patient having fatigue, dyspnea on exertion, tachycardia, leg pain/cramping. * Suspected DENNIS, will do iron studies and order hemoccult * 1 unit of RBCs ordered so far Uterine Fibroids Right adnexal mass Pelvic pain of unknown origin * Imaging shows fibroids and adnexal masses are stable in size, radiology recommends follow up with US or MRI * Will order pelvic US * Outpatient follow up with [facility] Elevated CRP, unknown origin - suspected infectious process * Patient having generalized symptoms of infection * Will order a COVID test * Patient does meet SIRS criteria, but no known source of infection * Will hold on antibiotics for now Hypokalemia * Will replace with KCl Hypertension * Patients BP currently fine, continue to monitor, resume home meds if needed Asthma * Patient having some wheezing/rhonchi right now * Will start breathing treatments and monitor response * Patient probably needs home med reconciliation and prescription for asthma medications at discharge. HAYDEE MEDINA MD 02/06/22 0800: Home Medications Allergies Coded Allergies: Penicillins (Verified Allergy, Unknown, lip swelling, 03/18/18) BTT-Lnijdh-Lzvgvl Hx Family Medical History Family History: Alzheimer's disease MATERNAL GRANDMOTHER Diabetes mellitus 19 FATHER Hypertension 19 FATHER 19 MOTHER Myocardial infarction 19 MOTHER Neoplasm PATERNAL GRANDMOTHER (COLON CANCER) Assessment/Plan Assessment/Plan Admission Status: Observation Supervisory-Addendum Brief Verification & Attestation Participated in pt care: history, MDM, physical Personally performed: exam, history, MDM, supervision of care Care discussed with: Medical Student Procedures: n/a I personally saw and examined patient and repeated history and exam. Please see my exam findings here- I saw patient after COVID test was positive. Heart RRR, no murmurs, lungs CTAB. Abd soft, mild diffuse ttp, no peripheral edema, alert, oriented with normal mood. Did not examine perineal region at this time. Started dexamethasone due to wheezing/asthma and COVID. Will check d-dimer, holding enoxaparin for now given bleeding and anemia. Check pelvic US due to persistent right adnexal mass without follow through on imaging in past. MAKAYLA LATIF Feb 05, 2022 16:44 HAYDEE MEDINA MD Feb 06, 2022 08:00
[2022-02-05 17:18] LABS: ABSOLUTE RETIC # 54 10e9/uL (24-90); BASOPHILS % (AUTO) 1 % (0-10); EOSINOPHILS % (AUTO) 1 % (0-10); HEMATOCRIT 24 % (35-52); LYMPHOCYTES % (AUTO) 27 % (12-44); MEAN CORPUSCULAR HEMOGLOBIN 15 pg (25-34); MEAN CORPUSCULAR HGB CONC 26 g/dL (32-36); MEAN CORPUSCULAR VOLUME 56 fL (80-99); MONOCYTES # (AUTO) 0.6 10^3/uL (0.0-1.0); MONOCYTES % (AUTO) 18 % (0-12); NEUTROPHILS # (AUTO) 1.8 10^3/uL (1.8-7.8); NEUTROPHILS % (AUTO) 52 % (42-75); PLATELET COUNT 255 10^3/uL (130-400); RETICULOCYTE % 1.23 % (0.50-2.40); WHITE BLOOD COUNT 3.5 10^3/uL (4.3-11.0)
[2022-02-05 17:20] LABS: HEMOGLOBIN 6.4 g/dL (11.5-16.0)
[2022-02-05 17:25] VITALS: BP 142/88
[2022-02-05 17:41] LABS: ANISOCYTOSIS MARKED; EOSINOPHILS % (MANUAL) 1 %; LYMPHOCYTES % (MANUAL) 26 %; MONOCYTES % (MANUAL) 24 %; NEUTROPHILS % (MANUAL) 49 %; NUCLEATED RED BLOOD CELLS 2; POLYCHROMASIA MARKED
[2022-02-05 17:42] LABS: ELLIPT/OVALOCYTES MODERATE; TEAR DROP CELLS MODERATE
[2022-02-05] MEDS ORDERED: NS IV 500 ML 500 ML IV SCH (18:00)
[2022-02-05] MEDS ORDERED: ONDANSETRON 4 MG/2 ML (SDV) Z0FRAN IV PRN (18:00)
[2022-02-05 18:07] VITALS: BP 115/66
[2022-02-05] MEDS ORDERED: RT-ALBUTEROL SULF 2.5 MG/3 ML PRE-MIX VIAL INH PRN (18:15)
[2022-02-05] MEDS ORDERED: RT-ALBUTEROL HFA 8.5 GM INHALER IH PRN (18:30)
[2022-02-05 18:33] VITALS: BP 125/85
[2022-02-05] MEDS: TRIM/SULFAMETH 160/800 (SEPTRA DS) TAB PO SCH (18:36)
[2022-02-05] MEDS: NS IV 1000 ML 1,000 ML IV SCH (18:36)
[2022-02-05 18:50] VITALS: BP 138/80
--- NOTE | 2022-02-05 18:58 | Consultation - Surgery ---
History of Present Illness History of Present Illness Patient Consulted On(armando/time) 02/05/22 18:53 Time Seen by Provider: 16:11 History of Present Illness Surgery asked to consult regarding possible rectal abscess and anemia. HPI per ED: This is a 42-year-old female who presented to the ER with complaints of a rectal abscess for the past 2 days accompanied with fever and chills. States that the highest her temperature has been at home was 102.0 Fahrenheit. She has reported increased fatigue and lethargy since abscess started. States she has history of prior rectal abscess and this feels similar in nature. HPI per IM: Patient is a 42 year old female with a past medical history of HTN, asthma, and menorrhagia that presents to [facility] ER with complaints of a rectal abscess, fever, fatigue, and malaise. Patient states that her pain started yesterday and that it started in her perianal region. She states the pain feels like pressure and that it has been constant. Associated symptoms include fatigue, headache, fever, body aches. Patient states the only thing that has given her relief was sitting in a hot tub for a little bit yesterday. Patient states that her body aches are all over, but the worst in her legs. She rates her discomfort an 8/10. When I spoke to pt this afternoon she stated that it felt just like last time she had a rectal abscess. She states it drained on its own last time (no surgical intervention), but has not drained this time. It bothered her all day yesterday and she slept until 7pm, but she didn't want to do anything because she wanted to spend February 04 with her family. When asked about other sources of bleeding; she denied hematochezia, melena and hemate mesis. She does admit that she has very heavy menstruation. Allergies and Home Medications Allergies Coded Allergies: Penicillins (Verified Allergy, Unknown, lip swelling, 03/18/18) Patient Home Medication List Home Medication List Reviewed: Yes Albuterol Sulfate (Proair Hfa) 1 Puff Puff, 2 PUFF IH Q4H PRN for SHORTNESS OF BREATH, (Reported) Entered as Reported by: APOLONIA CEBALLOS on 03/08/19 6435 Albuterol Sulfate (Albuterol Sulfate) 2.5 Mg/3 Ml Vial.neb, 2.5 MG INH Q4H PRN for WHEEZING Prescribed by: RONALD NEWTON on 08/30/21 014 Benzonatate (Tessalon Perles) 100 Mg Capsule, 100 MG PO Q6H PRN for COUGH Prescribed by: RONALD NEWTON on 08/30/21 0146 Cefuroxime Axetil (Cefuroxime) 250 Mg Tablet, 250 MG PO BID Prescribed by: MODESTA SRIVASTAVA on 12/02/202019 Ciprofloxacin HCl (Cipro) 500 Mg Tablet, 500 MG PO BID Prescribed by: MARLIN MEDINA on 03/09/19 113 Ciprofloxacin HCl (Ciprofloxacin HCl) 500 Mg Tablet, 500 MG PO BID Prescribed by: RONALD NEWTON on 11/17/19 140 Ciprofloxacin HCl (Ciprofloxacin HCl) 500 Mg Tablet, 500 MG PO BID Prescribed by: YONY CAN on 10/18/20 163 Escitalopram Oxalate (Lexapro) 20 Mg Tablet, 10 MG PO DAILY, (Reported) Entered as Reported by: APOLONIA CEBALLOS on 03/08/19 075 Hydrocodone/Acetaminophen (Hydrocodone-Acetamin 5-325 mg) 1 Each Tablet, 1 TAB PO Q6H PRN for PAIN-MODERATE (5-7) Prescribed by: YONY CAN on 10/18/20 163 Hydrocodone/Acetaminophen (Hydrocodone-Acetamin 5-325 mg) 1 Each Tablet, 1 TAB PO Q4H PRN for PAIN-MODERATE (5-7) Prescribed by: MODESTA SRIVASTAVA on 12/02/20 184 Ibuprofen (Ibuprofen) 200 Mg Tablet, 200 MG PO Q6H PRN for PAIN-MILD, (Reported) Entered as Reported by: APOLONIA CEBALLOS on 03/08/19 075 Loratadine (Loratadine) 10 Mg Tablet, 10 MG PO DAILY PRN for ALLERGIES, (Reported) Entered as Reported by: APOLONIA CEBALLOS on 03/08/19 075 Metronidazole (Flagyl) 500 Mg Tablet, 500 MG PO BID Prescribed by: MARLIN MEDINA on 03/09/19 113 Metronidazole (Flagyl) 500 Mg Tablet, 500 MG PO TIDWM Prescribed by: RONALD NEWTON on 11/17/19 1407 Metronidazole (Flagyl) 500 Mg Tablet, 500 MG PO TID Prescribed by: YONY CAN on 10/18/20 1638 Mirtazapine (Remeron) 15 Mg Tab.rapdis, 15-30 MG PO HS, (Reported) Entered as Reported by: APOLONIA CEBALLOS on 03/08/19 0751 Multivitamin with Minerals (One Daily Complete) 1 Each Tablet, 1 EACH PO DAILY, (Reported) Entered as Reported by: APOLONIA CEBALLOS on 03/08/19 0755 Ondansetron (Ondansetron Odt) 4 Mg Tab.rapdis, 4 MG PO Q6H PRN for NAUSEA/VOMITING Prescribed by: RONALD NEWTON on 11/17/19 1407 Ondansetron (Ondansetron Odt) 4 Mg Tab.rapdis, 4 MG PO Q8H PRN for NAUSEA/VOMITING Prescribed by: YONY CAN on 10/18/20 1638 Ondansetron (Ondansetron Odt) 4 Mg Tab.rapdis, 4 MG PO Q6H PRN for NAUSEA/VOMITING Prescribed by: RONALD NEWTON on 08/30/21 0146 Prednisone (Prednisone) 20 Mg Tab, 40 MG PO DAILY Prescribed by: MODESTA SRIVASTAVA on 12/02/20 1846 Prednisone (Prednisone) 20 Mg Tab, 40 MG PO DAILY Prescribed by: RONALD NEWTON on 08/30/21 0146 Past Pkldxkl-Mviktp-Fxmhlu Hx Patient Social History Drug of Choice: MARIJUANA Smoking Status: Current Everyday Smoker Type Used: Electronic/Vapor 2nd Hand Smoke Exposure: Yes Recent Hopitalizations: No Alcohol Use?: No Substance type: Marijuana Have you traveled recently?: No Immunizations Up To Date PED Vaccines UTD: Yes Seasonal Allergies Seasonal Allergies: Yes Surgeries History of Surgeries: Yes Surgeries: Abdominal, Gallbladder Respiratory History of Respiratory Disorde: Yes Respiratory Disorders: Asthma Cardiovascular History of Cardiac Disorders: Yes Cardiac Disorders: Hypertension Neurological History of Neurological Disord: No Reproductive System Female Reproductive Disorders: Denies Genitourinary History of Genitourinary Disor: Yes Genitourinary Disorders: Kidney Stones Gastrointestinal History of Gastrointestinal Di: Yes (HIATAL HERNIA REPAIRED) Gastrointestinal Disorders: Diverticulosis, Hiatal Hernia Musculoskeletal History of Musculoskeletal Dis: Yes Musculoskeletal Disorders: Fractures Endocrine History of Endocrine Disorders: No (OBESITY) HEENT History of HEENT Disorders: No Cancer History of Cancer: No Psychosocial History of Psychiatric Problem: No Behavioral Health Disorders: Anxiety Integumentary History of Skin or Integumenta: No Blood Transfusions History of Blood Disorders: Yes (SICKLE CELL TRAIT) Family Medical History Significant Family History: Heart Disease (Mother [place] at 43), CAD Under 55 Years Old, Diabetes (Father), Hypertension (Father), Psychiatric Problems (Alzheimer's - Gma), Other Conditions/Hx (Alcohol abuse disorder) Family Medial History: Alzheimer's disease MATERNAL GRANDMOTHER Diabetes mellitus 19 FATHER Hypertension 19 FATHER 19 MOTHER Myocardial infarction 19 MOTHER Neoplasm PATERNAL GRANDMOTHER (COLON CANCER) Review of Systems-General Constitutional: fever, malaise, weakness EENTM: No blurred vision, No mouth pain, No epistaxis, No throat swelling Respiratory: No cough, No hemoptysis, No short of breath Cardiovascular: No chest pain, No palpitations Gastrointestinal: No abdominal pain; loss of appetite; No nausea, No vomiting Genitourinary: No dysuria, No frequency, No hematuria Musculoskeletal: joint pain, muscle stiffness Skin: No change in color, No change in hair/nails; other (pain in rectal area) Psychiatric/Neurological: Anxiety; Denies Depressed, Denies Seizure, Denies Tremors Physical Exam-General Problems Physical Exam Vital Signs Vital Signs - First Documented 02/05/22 02/05/22 02/05/22 12:02 17:05 18:07 Temp 37.3 Pulse 101 Resp 20 B/P (MAP) 115/66 Pulse Ox 96 O2 Delivery Room Air FiO2 21 Capillary Refill : Less Than 3 Seconds General Appearance: WD/WN, mild distress, obese Eyes: Bilateral Eye PERRL, Bilateral Eye EOMI HEENT: pharynx normal; No scleral icterus (R), No scleral icterus (L) Neck: non-tender, supple Respiratory: chest non-tender, lungs clear, normal breath sounds, no respiratory distress, no accessory muscle use Cardiovascular: no murmur, tachycardia Gastrointestinal: non tender, soft, no organomegaly Rectal: other (exam performed with female web services developer, no signs of abscess, left gluteal cheek was very tender) Genital/Rectal: other (external genitalia looked normal, no swelling or signs of infection) Back: no CVA tenderness, no vertebral tenderness Extremities: non-tender, no pedal edema Neurologic/Psychiatric: bilingual trainer II-XII nml as tested, alert, oriented x 3 Skin: normal color, warm/dry Lymphatic: no adenopathy (neck, axilla or groin) Data Review Labs Laboratory Tests 02/05/22 14:20: White Blood Count 3.5L, Red Blood Count 4.38, Hemoglobin 6.4*L, Hematocrit 24L, Mean Corpuscular Volume 56L, Mean Corpuscular Hemoglobin 15L, Mean Corpuscular Hemoglobin Concent 26L, Red Cell Distribution Width 23.8H, Platelet Count 255, Mean Platelet Volume , Immature Granulocyte % (Auto) 0, Neutrophils (%) (Auto) 52, Lymphocytes (%) (Auto) 27, Monocytes (%) (Auto) 18H, Eosinophils (%) (Auto) 1, Basophils (%) (Auto) 1, Neutrophils # (Auto) 1.8, Lymphocytes # (Auto) 1.0, Monocytes # (Auto) 0.6, Eosinophils # (Auto) 0.0, Basophils # (Auto) 0.0, Immature Granulocyte # (Auto) 0.0, Neutrophils % (Manual) 49, Lymphocytes % (Manual) 26, Monocytes % (Manual) 24, Eosinophils % (Manual) 1, Nucleated Red Blood Cells 2, Percent Immature Platelet Fraction 7.3, Polychromasia MARKED, Anisocytosis MARKED, Tear Drop Cells MODERATE, Elliptocytes MODERATE, Absolute Reticulocyte Count 54, Percent Reticulocyte Count 1.23, Sodium Level 135, Potassium Level 3.5L, Chloride Level 102, Carbon Dioxide Level 24, Anion Gap 9, Blood Urea Nitrogen 7, Creatinine 0.78, Estimat Glomerular Filtration Rate 97, BUN/Creatinine Ratio 9, Glucose Level 90, Calcium Level 8.3L, Corrected Calcium 8.5, Total Bilirubin 0.5, Aspartate Amino Transf (AST/SGOT) 19, Alanine Aminotransferase (ALT/SGPT) 10, Alkaline Phosphatase 67, C-Reactive Protein High Sensitivity 2.38H, Total Protein 7.7, Albumin 3.7, Smear Scan 02/05/22 17:05: Influenza Type A (RT-PCR) Not Detected, Influenza Type B (RT-PCR) Not Detected, SARS-CoV-2 RNA (RT-PCR) DetectedH Radiology Date of Exam:02/05/22 CT ABDOMEN/PELVIS W PROCEDURE: CT abdomen and pelvis with contrast. TECHNIQUE: Multiple contiguous axial images were obtained through the abdomen and pelvis after administration of intravenous contrast. Auto Exposure Controls were utilized during the CT exam to meet ALARA standards for radiation dose reduction. All CT scans use one or more of the following dose optimizing techniques: automated exposure control, MA and/or KvP adjustment based on patient size and exam type or iterative reconstruction. INDICATION: Perirectal abscess and fever. COMPARISONS: 10/18/2020 and 11/17/2019 There is no focal hepatic, pancreatic or splenic abnormality. The approximately 1.3 cm left suprarenal nodule is unchanged and may be related to adrenal gland adenoma. No right adrenal abnormality is seen. Gallbladder is surgically absent. There is no evidence of renal abnormality. No free fluid is seen in the abdomen or pelvis. The fibroid nature of the uterus is stable with fundal fibroid reaching approximately 5.5 cm in maximal diameter. The low density masslike lesion in the right adnexal region now measures approximately 4.5 x 5.0 cm. This has been present on previous studies and has not shown interval growth since the most recent exam. Unopacified bladder is unremarkable. IMPRESSION: No acute abnormality or adverse change is identified. There are numerous diverticula and a prominent uterine fibroid similar to previous study. There is no evidence of active inflammation. Masslike structure in the right adnexal region is again demonstrated without evidence of interval growth. This could be further assessed with ultrasonography or MRI. Laparoscopy could also be considered if not previously performed. l Dictated by: Dictated on workstation # [id number] Dict: 02/05/22 1530 Trans: 02/05/22 1656 [facility] [id number] Interpreted by: BEAU RIVERA MD Electronically signed by: BEAU RIVERA MD 02/05/22 1656 Date of Exam:02/05/22 CT PELVIS WO PROCEDURE: CT pelvis without contrast. TECHNIQUE: Multiple contiguous axial images were obtained through the pelvis without the use of intravenous contrast. Sagittal and coronal reformations were performed. Auto Exposure Controls were utilized during the CT exam to meet ALARA standards for radiation dose reduction. INDICATION: Perirectal abscess COMPARISON: CT abdomen and pelvis with IV contrast performed earlier same day. FINDINGS: There are no inflammatory changes in the perirectal or perianal soft tissues. The ischioanal fat is normal in appearance. No gas or fluid collection within the perineal fat. No free pelvic fluid. Bilateral adnexal masses are most likely ovarian cysts. There is potential exophytic fibroid arising from the fundus. No inguinal lymphadenopathy. No osseous erosions. Contrast within urinary bladder is due to the CT abdomen and pelvis was performed concurrently. IMPRESSION: 1. No acute osseous abnormality within the pelvis. 2. No perianal inflammatory change or abscess. Dictated by: Dictated on workstation # [id number] Dict: 02/05/22 1542 Trans: 02/05/22 1710 [facility] [id number] Interpreted by: DESIRAE MORFIN MD Electronically signed by: DESIRAE MORFIN MD 02/05/22 1711 Assessment/Plan Assessment/Plan Assessment/Plan Rectal Pain Anemia I reviewed the CAT scan myself and discussed the findings and the patient's care with the emergency room provider. I did not see any signs of abscess on the CT and nothing on physical exam therefore is nothing surgical to offer at this time. I do agree with antibiotics pain control. She may also benefit from blood transfusion because her hemoglobin is 6.1. I believe most likely her anemia is secondary to isabel-metrorrhagia. She should also have IV fluids pain control and antiemetics as needed. I will follow along. AZAR MEZA DO Feb 05, 2022 18:58
[2022-02-05 20:00] VITALS: BP 131/69
[2022-02-05] MEDS: FAMOTIDINE 20 MG (PEPCID) TABLET PO SCH (20:38)
[2022-02-05] MEDS: ACETAMINOPHEN 325 MG TABLET PO PRN (20:43)
[2022-02-05 21:20] VITALS: BP 133/85
[2022-02-05] MEDS: dexAMETHasone 6 MG TAB (DECADRON) PO SCH (22:59)
[2022-02-06 03:32] VITALS: BP 126/76
[2022-02-06 06:09] LABS: BASOPHILS % (AUTO) 1 % (0-10); HEMATOCRIT 29 % (35-52)
[2022-02-06 06:11] LABS: EOSINOPHILS # (AUTO) 0.1 10^3/uL (0.0-0.3); EOSINOPHILS % (AUTO) 4 % (0-10); HEMOGLOBIN 7.8 g/dL (11.5-16.0); LYMPHOCYTES # (AUTO) 1.1 10^3/uL (1.0-4.0); LYMPHOCYTES % (AUTO) 34 % (12-44); MEAN CORPUSCULAR HEMOGLOBIN 16 pg (25-34); MEAN CORPUSCULAR HGB CONC 27 g/dL (32-36); MEAN CORPUSCULAR VOLUME 59 fL (80-99); MONOCYTES # (AUTO) 0.4 10^3/uL (0.0-1.0); MONOCYTES % (AUTO) 13 % (0-12); NEUTROPHILS # (AUTO) 1.6 10^3/uL (1.8-7.8); NEUTROPHILS % (AUTO) 48 % (42-75); PLATELET COUNT 245 10^3/uL (130-400); WHITE BLOOD COUNT 3.3 10^3/uL (4.3-11.0)
[2022-02-06 06:23] LABS: POTASSIUM 3.6 MMOL/L (3.6-5.0)
[2022-02-06 06:25] LABS: CALCIUM 8.2 MG/DL (8.5-10.1)
[2022-02-06] MEDS: dexAMETHasone 6 MG TAB (DECADRON) PO SCH (06:25)
[2022-02-06 06:29] LABS: CREATININE SERUM 0.81 MG/DL (0.60-1.30)
[2022-02-06] MEDS: NS IV 1000 ML 1,000 ML IV SCH ×2 (06:31→08:35)
--- NOTE | 2022-02-06 08:27 | Progress Note - Surgery ---
KALEIGH PUTNAM 02/06/22 0827: Subjective Date Seen by a Provider: Feb 06, 2022 Time Seen by a Provider: 07:15 Subjective/Events-last exam Ms. Myers is being followed for perirectal pain and COVID pneumonia. This morning she reports her pain has improved a bit and is a 5/10. She endorses a non-productive cough but no SOB or trouble breathing. She says she has been fatigued and sleeping a lot. She also endorses a headache. Her Hgb has increased from 6.4 to 7.8 s/p 1 unit PRBC. Review of Systems General: Chills, Fatigue HEENT: Head Aches; No Visual Changes Pulmonary: No Dyspnea; Cough Cardiovascular: No: Chest Pain, Palpitations Gastrointestinal: No: Nausea, Vomiting, Abdominal Pain Neurological: No: Weakness, Confusion Objective Exam Vital Signs Date Time Temp Pulse Resp B/P (MAP) Pulse Ox O2 Delivery O2 Flow Rate FiO2 02/06/22 03:32 37.1 92 20 126/76 (93) 98 Room Air 02/06/22 00:47 37.5 96 99 02/05/22 21:20 37.5 95 16 133/85 99 Room Air 02/05/22 20:00 37.0 98 16 131/69 (89) 100 02/05/22 20:00 37.0 98 16 131/69 (89) 100 Room Air 02/05/22 18:50 37.5 89 18 138/80 98 Room Air 02/05/22 18:33 37.4 88 16 125/85 96 02/05/22 18:25 Room Air 02/05/22 18:07 37.3 101 96 21 02/05/22 17:25 37.2 90 20 142/88 (106) 99 Room Air 02/05/22 17:05 85 16 115/66 97 Room Air 02/05/22 12:02 37.3 101 20 96 Room Air I & O 02/06/22 06:59 Intake Total 1270 ml Balance 1270 ml Capillary Refill : Less Than 3 Seconds General Appearance: No Apparent Distress, WD/WN HEENT: PERRL/EOMI; No Scleral Icterus (L), No Scleral Icterus (R) Neck: Non Tender, Supple Respiratory: Chest Non Tender, No Accessory Muscle Use, No Respiratory Distress, Crackles Cardiovascular: Regular Rate, Rhythm, No Murmur, Normal Peripheral Pulses Peripheral Pulses: 2+ Radial Pulses (R), 2+ Radial Pulses (L) Gastrointestinal: non tender, soft; No distended, No guarding, No rebound Extremity: No Calf Tenderness, No Pedal Edema Neurologic/Psychiatric: Alert, Oriented x3, No Motor/Sensory Deficits, Normal Mood/Affect Skin: Normal Color, Warm/Dry Results Lab Laboratory Tests 02/05/22 14:20: White Blood Count 3.5L, Red Blood Count 4.38, Hemoglobin 6.4*L, Hematocrit 24L, Mean Corpuscular Volume 56L, Mean Corpuscular Hemoglobin 15L, Mean Corpuscular Hemoglobin Concent 26L, Red Cell Distribution Width 23.8H, Platelet Count 255, Mean Platelet Volume , Immature Granulocyte % (Auto) 0, Neutrophils (%) (Auto) 52, Lymphocytes (%) (Auto) 27, Monocytes (%) (Auto) 18H, Eosinophils (%) (Auto) 1, Basophils (%) (Auto) 1, Neutrophils # (Auto) 1.8, Lymphocytes # (Auto) 1.0, Monocytes # (Auto) 0.6, Eosinophils # (Auto) 0.0, Basophils # (Auto) 0.0, Immature Granulocyte # (Auto) 0.0, Neutrophils % (Manual) 49, Lymphocytes % (Manual) 26, Monocytes % (Manual) 24, Eosinophils % (Manual) 1, Nucleated Red Blood Cells 2, Percent Immature Platelet Fraction 7.3, Polychromasia MARKED, Anisocytosis MARKED, Tear Drop Cells MODERATE, Elliptocytes MODERATE, Absolute Reticulocyte Count 54, Percent Reticulocyte Count 1.23, D-Dimer 1.36H, Sodium Level 135, Potassium Level 3.5L, Chloride Level 102, Carbon Dioxide Level 24, Anion Gap 9, Blood Urea Nitrogen 7, Creatinine 0.78, Estimat Glomerular Filtr ation Rate 97, BUN/Creatinine Ratio 9, Glucose Level 90, Calcium Level 8.3L, Corrected Calcium 8.5, Total Bilirubin 0.5, Aspartate Amino Transf (AST/SGOT) 19, Alanine Aminotransferase (ALT/SGPT) 10, Alkaline Phosphatase 67, C-Reactive Protein High Sensitivity 2.38H, Total Protein 7.7, Albumin 3.7, Smear Scan 02/05/22 17:05: Influenza Type A (RT-PCR) Not Detected, Influenza Type B (RT-PCR) Not Detected, SARS-CoV-2 RNA (RT-PCR) DetectedH 02/06/22 05:50: White Blood Count 3.3L, Red Blood Count 4.89, Hemoglobin 7.8#L, Hematocrit 29L, Mean Corpuscular Volume 59L, Mean Corpuscular Hemoglobin 16L, Mean Corpuscular Hemoglobin Concent 27L, Red Cell Distribution Width 26.1H, Platelet Count 245, Mean Platelet Volume , Immature Granulocyte % (Auto) 0, Neutrophils (%) (Auto) 48, Lymphocytes (%) (Auto) 34, Monocytes (%) (Auto) 13H, Eosinophils (%) (Auto) 4, Basophils (%) (Auto) 1, Neutrophils # (Auto) 1.6L, Lymphocytes # (Auto) 1.1, Monocytes # (Auto) 0.4, Eosinophils # (Auto) 0.1, Basophils # (Auto) 0.0, Immature Granulocyte # (Auto) 0.0, Percent Immature Platelet Fraction 6.4, Sodium Level 139, Potassium Level 3.6, Chloride Level 107, Carbon Dioxide Level 21, Anion Gap 11, Blood Urea Nitrogen 7, Creatinine 0.81, Estimat Glomerular Filtration Rate 93, BUN/Creatinine Ratio 9, Glucose Level 120H, Calcium Level 8.2L Assessment/Plan Assessment/Plan Assessment/Plan Assessment: Rectal Pain Anemia - Hgb from 6.4 to 7.8 s/p 1 unit PRBC Covid Plan: Continue supportive respiratory care, defer to medicine for Covid management Patient has microcytic anemia, consider iron supplementation. Continue abx and pain control as needed Will continue to follow, no surgical indication at this time THANG CABRALES DO 02/06/22 1936: Subjective Time Seen by a Provider: 08:14 Subjective/Events-last exam Pt seen and examined, states pain about same "may be a little better". Found to be COVID +. No new complaints. Review of Systems General: Chills, Fatigue HEENT: Head Aches; No Visual Changes Pulmonary: No Dyspnea; Cough Cardiovascular: No: Chest Pain, Palpitations Gastrointestinal: No: Nausea, Vomiting, Abdominal Pain Objective Exam General Appearance: No Apparent Distress, Obese HEENT: PERRL/EOMI; No Scleral Icterus (L), No Scleral Icterus (R) Respiratory: Chest Non Tender, No Accessory Muscle Use, No Respiratory Distress, Crackles Cardiovascular: Regular Rate, Rhythm, No Murmur Gastrointestinal: non tender, soft; No distended, No guarding, No rebound Neurologic/Psychiatric: Alert, Oriented x3, No Motor/Sensory Deficits, Normal Mood/Affect Assessment/Plan Assessment/Plan Assessment/Plan Rectal Pain Anemia - Hgb from 6.4 to 7.8 s/p 1 unit PRBC Covid Plan: Continue supportive respiratory care, defer to medicine for Covid management Patient has microcytic anemia, consider iron supplementation. Continue abx and pain control as needed Will continue to follow, no surgical indication at this time Supervisory-Addendum Brief Verification & Attestation Participated in pt care: history, MDM, physical Personally performed: exam, history, MDM, supervision of care Care discussed with: Medical Student Procedures: n/a Verification and Attestation of Medical Student E/M Service A medical student performed and documented this service. I then reviewed and verified all information documented by the medical student and made modifications to such information, when appropriate. I personally performed a physical exam, medical decision making and then discussed any differences bet ween the notes and made revisions as necessary to create one note. Thang Cabrales , 02/06/22 , 19:36 KALEIGH PUTNAM Feb 06, 2022 08:27 THANG CABRALES DO Feb 06, 2022 19:36
[2022-02-06 08:31] VITALS: BP 126/72
[2022-02-06] MEDS: TRIM/SULFAMETH 160/800 (SEPTRA DS) TAB PO SCH ×2 (08:33→17:52)
[2022-02-06] MEDS: FAMOTIDINE 20 MG (PEPCID) TABLET PO SCH ×2 (08:33→20:39)
[2022-02-06] MEDS: ACETAMINOPHEN 325 MG TABLET PO PRN ×2 (08:36→20:39)
--- NOTE | 2022-02-06 08:43 | Progress Note ---
MAKAYLA LATIF 02/06/22 0843: Subjective Subjective/Events-last exam Patient is being seen in follow up for positive COVID infection and severe anemia requiring transfusion. Patient states she feels about the same as yesterday, but her body aches have improved. Is currently complaining of a bad headache. Was transfused 1 unit of blood last night. Hgb currently 7.8. Patient was sleeping when I entered the room and was struggling to stay awake/cooperate with my examination. Was unable to obtain a full ROS due to this Review of Systems General: Chills; No Night Sweats HEENT: Head Aches; No Visual Changes Pulmonary: No Dyspnea, No Cough Gastrointestinal: No: Nausea, Vomiting, Abdominal Pain Objective Exam Last Set of Vital Signs Vital Signs Date Time Temp Pulse Resp B/P (MAP) Pulse Ox O2 Delivery O2 Flow Rate FiO2 02/06/22 08:31 36.9 95 18 126/72 (90) 98 Room Air 02/05/22 18:07 21 Capillary Refill : Less Than 3 Seconds I&O Intake and Output 02/05/22 23:59 Intake Total 870 ml Balance 870 ml Intake Oral 600 ml Other 270 ml # Voids 3 # Bowel Movements 1 Daily Weight Change No General: Alert, Oriented X3 HEENT: Atraumatic, PERRLA Neck: Supple, No JVD Lungs: Other (Decreased air movement inspiratory and expiratory rhonchi in all lung lerma) Heart: Regular Rate, No Murmurs Abdomen: Normal Bowel Sounds, Soft Extremities: No Clubbing, Normal Pulses Neuro: Normal Speech Psych/Mental Status: Mental Status NL Results/Procedures Lab Laboratory Tests 02/05/22 14:20: White Blood Count 3.5L, Red Blood Count 4.38, Hemoglobin 6.4*L, Hematocrit 24L, Mean Corpuscular Volume 56L, Mean Corpuscular Hemoglobin 15L, Mean Corpuscular Hemoglobin Concent 26L, Red Cell Distribution Width 23.8H, Platelet Count 255, Mean Platelet Volume , Immature Granulocyte % (Auto) 0, Neutrophils (%) (Auto) 52, Lymphocytes (%) (Auto) 27, Monocytes (%) (Auto) 18H, Eosinophils (%) (Auto) 1, Basophils (%) (Auto) 1, Neutrophils # (Auto) 1.8, Lymphocytes # (Auto) 1.0, Monocytes # (Auto) 0.6, Eosinophils # (Auto) 0.0, Basophils # (Auto) 0.0, Immature Granulocyte # (Auto) 0.0, Neutrophils % (Manual) 49, Lymphocytes % (Manual) 26, Monocytes % (Manual) 24, Eosinophils % (Manual) 1, Nucleated Red Blood Cells 2, Percent Immature Platelet Fraction 7.3, Polychromasia MARKED, Anisocytosis MARKED, Tear Drop Cells MODERATE, Elliptocytes MODERATE, Absolute Reticulocyte Count 54, Percent Reticulocyte Count 1.23, D-Dimer 1.36H, Sodium Level 135, Potassium Level 3.5L, Chloride Level 102, Carbon Dioxide Level 24, Anion Gap 9, Blood Urea Nitrogen 7, Creatinine 0.78, Estimat Glomerular Filtration Rate 97, BUN/Creatinine Ratio 9, Glucose Level 90, Calcium Level 8.3L , Corrected Calcium 8.5, Total Bilirubin 0.5, Aspartate Amino Transf (AST/SGOT) 19, Alanine Aminotransferase (ALT/SGPT) 10, Alkaline Phosphatase 67, C-Reactive Protein High Sensitivity 2.38H, Total Protein 7.7, Albumin 3.7, Smear Scan 02/05/22 17:05: Influenza Type A (RT-PCR) Not Detected, Influenza Type B (RT-PCR) Not Detected, SARS-CoV-2 RNA (RT-PCR) DetectedH 02/06/22 05:50: White Blood Count 3.3L, Red Blood Count 4.89, Hemoglobin 7.8#L, Hematocrit 29L, Mean Corpuscular Volume 59L, Mean Corpuscular Hemoglobin 16L, Mean Corpuscular Hemoglobin Concent 27L, Red Cell Distribution Width 26.1H, Platelet Count 245, Mean Platelet Volume , Immature Granulocyte % (Auto) 0, Neutrophils (%) (Auto) 48, Lymphocytes (%) (Auto) 34, Monocytes (%) (Auto) 13H, Eosinophils (%) (Auto) 4, Basophils (%) (Auto) 1, Neutrophils # (Auto) 1.6L, Lymphocytes # (Auto) 1.1, Monocytes # (Auto) 0.4, Eosinophils # (Auto) 0.1, Basophils # (Auto) 0.0, Immature Granulocyte # (Auto) 0.0, Percent Immature Platelet Fraction 6.4, Sodium Level 139, Potassium Level 3.6, Chloride Level 107, Carbon Dioxide Level 21, Anion Gap 11, Blood Urea Nitrogen 7, Creatinine 0.81, Estimat Glomerular Filtration Rate 93, BUN/Creatinine Ratio 9, Glucose Level 120H, Calcium Level 8.2L Radiology Date of Exam:02/05/22 CT ABDOMEN/PELVIS W PROCEDURE: CT abdomen and pelvis with contrast. TECHNIQUE: Multiple contiguous axial images were obtained through the abdomen and pelvis after administration of intravenous contrast. Auto Exposure Controls were utilized during the CT exam to meet ALARA standards for radiation dose reduction. All CT scans use one or more of the following dose optimizing techniques: automated exposure control, MA and/or KvP adjustment based on patient size and exam type or iterative reconstruction. INDICATION: Perirectal abscess and fever. COMPARISONS: 10/18/2020 and 11/17/2019 There is no focal hepatic, pancreatic or splenic abnormality. The approximately 1.3 cm left suprarenal nodule is unchanged and may be related to adrenal gland adenoma. No right adrenal abnormality is seen. Gallbladder is surgically absent. There is no evidence of renal abnormality. No free fluid is seen in the abdomen or pelvis. The fibroid nature of the uterus is stable with fundal fibroid reaching approximately 5.5 cm in maximal diameter. The low density masslike lesion in the right adnexal region now measures approximately 4.5 x 5.0 cm. This has been present on previous studies and has not shown interval growth since the most recent exam. Unopacified bladder is unremarkable. IMPRESSION: No acute abnormality or adverse change is identified. There are numerous diverticula and a prominent uterine fibroid similar to previous study. There is no evidence of active inflammation. Masslike structure in the right adnexal region is again demonstrated without evidence of interval growth. This could be further assessed with ultrasonography or MRI. Laparoscopy could also be considered if not previously performed. l Dictated by: Dictated on workstation # [id number] Dict: 02/05/22 1530 Trans: 02/05/221655 [facility] [id number] Interpreted by: BEAU RIVERA MD Electronically signed by: BEAU RIVERA MD 02/05/226 Date of Exam:02/05/22 CT PELVIS WO PROCEDURE: CT pelvis without contrast. TECHNIQUE: Multiple contiguous axial images were obtained through the pelvis without the use of intravenous contrast. Sagittal and coronal reformations were performed. Auto Exposure Controls were utilized during the CT exam to meet ALARA standards for radiation dose reduction. INDICATION: Perirectal abscess COMPARISON: CT abdomen and pelvis with IV contrast performed earlier same day. FINDINGS: There are no inflammatory changes in the perirectal or perianal soft tissues. The ischioanal fat is normal in appearance. No gas or fluid collection within the perineal fat. No free pelvic fluid. Bilateral adnexal masses are most likely ovarian cysts. There is potential exophytic fibroid arising from the fundus. No inguinal lymphadenopathy. No osseous erosions. Contrast within urinary bladder is due to the CT abdomen and pelvis was performed concurrently. IMPRESSION: 1. No acute osseous abnormality within the pelvis. 2. No perianal inflammatory change or abscess. Dictated by: Dictated on workstation # [id number] Dict: 02/05/22 1542 Trans: 02/05/22 1715 [facility] [id number] Interpreted by: DESIRAE MORFIN MD Electronically signed by: DESIRAE MORFIN MD 02/05/22 8346 Assessment/Plan Assessment/Plan Admission Dx Symptomatic anemia COVID 19 Assessment & Plan Symptomatic anemia * Patient having fatigue, dyspnea on exertion, tachycardia, leg pain/cramping. * Suspected DENNIS, will do iron studies and order hemoccult * 1 unit of RBCs ordered so far * Hgb 6.5 on arrival, currently 7.8 after 1 unit RBCs Uterine Fibroids Right adnexal mass Pelvic pain of unknown origin * Imaging shows fibroids and adnexal masses are stable in size, radiology recommends follow up with US or MRI * Will order pelvic US * Outpatient follow up with [facility] COVID 19 infection * Patient given dexmethasone and breathing treatments * Still having chills and severe headache * Will give tylenol for headache Hypokalemia * Curently 3.6, Will replace with KCl Hypertension * Patients BP currently fine, continue to monitor, resume home meds if needed Asthma * Patient having some wheezing/rhonchi right now * Will start breathing treatments and monitor response * Patient probably needs home med reconciliation and prescription for asthma medications at discharge. HAYDEE MEDINA MD 02/06/221915: Supervisory-Addendum Brief Verification & Attestation Participated in pt care: history, MDM, physical Personally performed: exam, history, MDM, supervision of care Care discussed with: Medical Student Procedures: n/a I personally saw and examined patient at about 1125- at that time she was awake and alert. I did examine her perineum and she does have a cystic like induration in her left lower labia/perineum that has no fluctuance or erythema, but is mildly ttp. Lungs clear at time of my exam and she had mild lower abdominal ttp. No peripheral edema, but did have tenderness to palpation of right calf. Given this and her mildly elevated D dimer, will check venous dopplers. I directed the plan of care as documented by the medical student and agree with his documentation except as mine differs here. MAKAYLA LATIF Feb 06, 2022 08:43 HAYDEE MEDINA MD Feb 06, 2022 19:16
[2022-02-06 12:27] VITALS: BP 136/67
[2022-02-06] MEDS: ENOXAPARIN 40 MG/0.4 ML (LOVENOX) SYR SQ SCH (14:06)
--- NOTE | 2022-02-06 15:39 | Diagnostic Imaging Report ---
PROCEDURE: US Venous Lower Ext Brendan. TECHNIQUE: Multiple real-time grayscale images were obtained over the lower extremities in various projections, bilaterally. Additional duplex Doppler and color Doppler images were also obtained. INDICATION: Elevated D-dimer and COVID-19 positive. FINDINGS: There is no evidence of a right or left lower extremity DVT. Both lower extremity deep venous systems demonstrate normal compressibility with normal response to augmentation and Valsalva. No fluid collection or mass is detected. IMPRESSION: No evidence of right or left lower extremity DVT. Dictated by: Dictated on workstation # [id number]
[2022-02-06] MEDS ORDERED: FAMO20TA5 PO (15:45)
[2022-02-06 16:00] VITALS: BP 140/85
--- NOTE | 2022-02-06 16:01 | Diagnostic Imaging Report ---
PROCEDURE: Pelvic comp/transvaginal sonogram. TECHNIQUE: Complete transabdominal and transvaginal pelvic ultrasound was performed. In addition, limited pelvic Doppler was performed. INDICATION: Anemia. FINDINGS: Uterus is anteverted measuring 8.9 x 4.6 x 6.9 cm. Endometrium is 9 mm in thickness. There appears to be a mass in the left uterus measuring 4.9 x 3.9 x 5.6 cm consistent with a fibroid. Additional lesion measures 3.2 x 2.9 x 2.4 cm. Left ovary was not visualized due to overlying bowel gas. The right ovary is enlarged measuring 6.6 x 6.1 x 5.2 cm. There is a cystic mass involving the right ovary measuring 6.0 x 4.4 x 3.7 cm. There is internal debris and complexity. There is blood flow to the right ovary. No free fluid is seen. IMPRESSION: 1. Fibroid uterus. 2. Complex cystic mass in the right ovary. Follow-up ultrasound in 6-8 weeks is recommended to confirm stability or clearing. Dictated by: Dictated on workstation # [id number]
[2022-02-06 20:00] VITALS: BP 123/55
[2022-02-07] VITALS: BP 106/66
[2022-02-07] MEDS: NS IV 1000 ML 1,000 ML IV SCH ×2 (02:22→10:03)
[2022-02-07 04:00] VITALS: BP 109/67
[2022-02-07] MEDS: dexAMETHasone 6 MG TAB (DECADRON) PO SCH (06:01)
[2022-02-07 06:21] LABS: HEMATOCRIT 28 % (35-52)
[2022-02-07 06:22] LABS: HEMOGLOBIN 7.5 g/dL (11.5-16.0); MEAN CORPUSCULAR HEMOGLOBIN 16 pg (25-34); MEAN CORPUSCULAR HGB CONC 27 g/dL (32-36); MEAN CORPUSCULAR VOLUME 58 fL (80-99); PLATELET COUNT 276 10^3/uL (130-400); WHITE BLOOD COUNT 4.7 10^3/uL (4.3-11.0)
--- NOTE | 2022-02-07 08:03 | Progress Note - Surgery ---
KALEIGH PUTNAM 02/07/22 0803: Subjective Date Seen by a Provider: Feb 07, 2022 Time Seen by a Provider: 06:51 Subjective/Events-last exam Ms. Myers is being followed for perirectal pain and COVID pneumonia. This morning she reports her perirectal pain is decreased to a 3/10. She does report pain in her thighs; doppler imaging yesterday showed no evidence of DVT. She does endorse abdominal pain this morning but attributes that to beginning her menstrual cycle. She says her breathing is okay but she feels a little bit wheezy; she has a productive cough. Review of Systems General: Chills; No Fatigue HEENT: Head Aches; No Visual Changes Pulmonary: Dyspnea, Cough Cardiovascular: No: Chest Pain, Palpitations Gastrointestinal: Abdominal Pain; No: Nausea, Vomiting Neurological: No: Weakness, Confusion Objective Exam Vital Signs Date Time Temp Pulse Resp B/P (MAP) Pulse Ox O2 Delivery O2 Flow Rate FiO2 02/07/22 04:00 35.7 87 18 109/67 (81) 97 Room Air 02/07/22 00:00 36.0 92 18 106/66 (79) 96 Room Air 02/06/22 21:00 Room Air 02/06/22 20:00 35.7 91 18 123/55 (77) 98 Room Air 02/06/22 16:00 36.8 87 18 140/85 (103) 98 Room Air 02/06/22 12:27 36.8 91 18 136/67 (90) 96 Room Air 02/06/22 08:31 36.9 95 18 126/72 (90) 98 Room Air I & O 02/07/22 07:00 Intake Total 3680 ml Balance 3680 ml Capillary Refill : Less Than 3 Seconds General Appearance: No Apparent Distress, Obese HEENT: PERRL/EOMI; No Scleral Icterus (L), No Scleral Icterus (R) Neck: Non Tender, Supple Respiratory: Chest Non Tender, No Accessory Muscle Use, No Respiratory Distress, Wheezing Cardiovascular: Regular Rate, Rhythm, No Murmur, Normal Peripheral Pulses Peripheral Pulses: 2+ Radial Pulses (R), 2+ Radial Pulses (L) Gastrointestinal: soft; No distended, No guarding, No rebound; tenderness (Diffuse, mild) Extremity: No Pedal Edema, Other (Thigh pain) Neurologic/Psychiatric: Alert, Oriented x3, No Motor/Sensory Deficits, Normal Mood/Affect Skin: Normal Color, Warm/Dry Results Lab Laboratory Tests 02/07/22 06:10: White Blood Count 4.7, Red Blood Count 4.77, Hemoglobin 7.5L, Hematocrit 28L, Mean Corpuscular Volume 58L, Mean Corpuscular Hemoglobin 16L, Mean Corpuscular Hemoglobin Concent 27L, Red Cell Distribution Width 26.2H, Platelet Count 276, Mean Platelet Volume , Percent Immature Platelet Fraction 5.7 Assessment/Plan Assessment/Plan Assessment/Plan Rectal Pain Anemia Hgb from 6.4 to 7.8 s/p 1 unit PRBC Hgb decreased slightly to 7.5 this morning Covid Thigh pain Doppler imaging showed no evidence of DVT Abdominal pain Patient began menstrual cycle Pelvic u/s showed a fibroid uterus with a cystic ovarian mass Plan: Continue supportive respiratory care, defer to medicine for Covid management Patient has microcytic anemia, consider iron supplementation Continue abx and pain control as needed Will continue to follow, no surgical indication at this time. Consider signing off and re-consult if needed. THANG CABRALES DO 02/07/22 1825: Subjective Time Seen by a Provider: 11:08 Subjective/Events-last exam Pt seen and examined, with basically no changes. Review of Systems HEENT: Head Aches; No Visual Changes Pulmonary: Dyspnea, Cough Cardiovascular: No: Chest Pain, Palpitations Gastrointestinal: Abdominal Pain; No: Nausea, Vomiting Objective Exam General Appearance: No Apparent Distress, Obese HEENT: PERRL/EOMI Neck: Non Tender, Supple Respiratory: Chest Non Tender, No Accessory Muscle Use, No Respiratory Distr ess, Wheezing Cardiovascular: Regular Rate, Rhythm, No Murmur Gastrointestinal: soft; No distended, No guarding, No rebound, No tenderness (Diffuse, mild) Extremity: Other (Thigh pain) Neurologic/Psychiatric: Alert, Oriented x3 Assessment/Plan Assessment/Plan Assessment/Plan Rectal Pain Anemia Hgb from 6.4 to 7.8 s/p 1 unit PRBC Hgb decreased slightly to 7.5 this morning Covid Thigh pain Doppler imaging showed no evidence of DVT Abdominal pain Patient began menstrual cycle Pelvic u/s showed a fibroid uterus with a cystic ovarian mass Plan: Continue supportive respiratory care, defer to medicine for Covid management Patient has microcytic anemia, consider iron supplementation Continue abx and pain control as needed Will continue to follow, no surgical indication at this time. Consider signing off and re-consult if needed. Supervisory-Addendum Brief Verification & Attestation Participated in pt care: history, MDM, physical Personally performed: exam, history, MDM, supervision of care Care discussed with: Medical Student Procedures: n/a Verification and Attestation of Medical Student E/M Service A medical student performed and documented this service. I then reviewed and verified all information documented by the medical student and made m odifications to such information, when appropriate. I personally performed a physical exam, medical decision making and then discussed any differences between the notes and made revisions as necessary to create one note. Thang Cabrales , 02/07/22 , 18:25 KALEIGH PUTNAM Feb 07, 2022 08:03 THANG CABRALES DO Feb 07, 2022 18:25
[2022-02-07 08:22] VITALS: BP 134/65
[2022-02-07] MEDS: ACETAMINOPHEN 325 MG TABLET PO PRN (08:45)
[2022-02-07] MEDS: FAMOTIDINE 20 MG (PEPCID) TABLET PO SCH (08:45)
[2022-02-07] MEDS: TRIM/SULFAMETH 160/800 (SEPTRA DS) TAB PO SCH (08:45)
[2022-02-07] MEDS: ENOXAPARIN 40 MG/0.4 ML (LOVENOX) SYR SQ SCH (12:14)
[2022-02-07 12:21] VITALS: BP 115/57
[2022-02-07 12:21] LABS: HEMOGLOBIN 7.9 g/dL (11.5-16.0)
[2022-02-07] MEDS ORDERED: ALBU8.5H9 IH (13:07)
[2022-02-07] MEDS ORDERED: DEXA6TAB PO (13:07)
[2022-02-07 15:17] VITALS: BP 120/62
--- NOTE | 2022-02-07 17:32 | Discharge Summary ---
MAKAYLA LATIF 02/07/22 1725: Discharge Summary Hospital Course Hospital Course Date of Admission: Feb 05, 2022 at 15:30 Admission Diagnosis : Symptomatic Anemia COVID-19 (+) [facility] Date of Discharge: 02/07/22 Discharge Diagnosis: COVID 19 (+) Hospital Course: Patient is a 42 year old female with a past medical history of HTN, asthma, and menorrhagia that presents to [facility] ER with complaints of a rectal abscess, fever, fatigue, and malaise. In the ER, patient was seen by general surgery and was noted to not have a visible abscess or area of induration. Patient was noted on CT to have a uterine fibroid measuring 5.5 cm at maximal width and a right adnexal mass measuring 4.5 x 5.0 cm. Patient was tested in the ER and found to be COVID 19 (+). Patient also had a presenting Hgb of 6.4, so a unit of RBCs was ordered to be transfused. Follow up Hgb was 7.8. Patient was started on dexmethasone due to acute asthma exacerbation. On the morning of 02/06 patient was complaining of calf tenderness and was found to have a D-dimer of 1.36. Patient underwent Doppler US, which was negative for any acute processes. Patient also underwent a follow-up US for her fibroid and right adnexal mass with the following findings. 1. Fibroid uterus. 2. Complex cystic mass in the right ovary. Follow-up ultrasound in 6-8 weeks is recommended to confirm stability or clearing. On follow up physical examination, patient was noted to have an area of induration at a scar site of a previous abscess. There was no erythema. No warmth was noted. There was slight tenderness to palpation. Patient's Hgb was stable and she stated that she was feeling better. Patient was discharged home with two doses of dexmethasone, some new asthma medications, and with plans to make a follow-up appointment with [facility] for further workup on her uterine Fibroid, right adnexal mass, and menorrhagia. Labs and Pending Lab Test: Laboratory Tests 02/07/22 06:10: White Blood Count 4.7, Red Blood Count 4.77, Hemoglobin 7.5L, Hematocrit 28L, Mean Corpuscular Volume 58L, Mean Corpuscular Hemoglobin 16L, Mean Corpuscular Hemoglobin Concent 27L, Red Cell Distribution Width 26.2H, Platelet Count 276, Mean Platelet Volume , Percent Immature Platelet Fraction 5.7 02/07/22 11:38: Hemoglobin 7.9L, Hematocrit 29L, D-Dimer 0.82H Home Meds Active Dexamethasone 6 Mg Tablet 6 Mg PO DAILY@0700 Proair Hfa (Albuterol Sulfate) 90 Mcg Hfa.aer.ad 2 Puff IH Q4H PRN Reported Famotidine 20 Mg Tablet 20 Mg PO DAILY Discharge Diet: No Restrictions Activity as Tolerated: Yes Discharge Physical Examination Allergies: Coded Allergies: Penicillins (Verified Allergy, Unknown, lip swelling, 03/18/18) General Appearance: No Apparent Distress, WD/WN HEENT: PERRL/EOMI Respiratory: Chest Non Tender, Inspiration, Rhonci (improvement from yesterday) Cardiovascular: Regular Rate, Rhythm, No Murmur, Normal Peripheral Pulses Gastrointestinal: Normal Bowel Sounds, Non Tender, Soft Extremity: Non Tender, No Calf Tenderness, No Pedal Edema Skin: Normal Color, Warm/Dry Neurologic/Psychiatric: Alert, Oriented x3, Normal Mood/Affect Discharge Summary Date of Admission Feb 05, 2022 at 15:30 Date of Discharge Feb 07, 2022 at 15:42 Discharge Date: Feb 07, 2022 HAYDEE MEDINA MD 02/08/22 1459: Discharge Summary Hospital Course Assessment/Pt DC Instructions Follow up with primary provider within a week of discharge. Discharge Physical Examination Allergies: Coded Allergies: Penicillins (Verified Allergy, Unknown, lip swelling, 03/18/18) Supervisory-Addendum Brief Verification & Attestation Participated in pt care: history, MDM, physical Personally performed: exam, history, MDM, supervision of care Care discussed with: Medical Student Procedures: n/a I personally saw and examined patient, repeated the history and physical to confirm student documentation. I directed the plan of care as documented by the medical student. MAKAYLA LATIF Feb 07, 2022 17:25 HAYDEE MEDINA MD Feb 08, 2022 14:59
== END 2022-02-07 15:00 | disposition home or self-care (01) ==
LOC: EDUNIT# 11:22 → ER 11:24 → UNDOADMOB 15:30 → 4TH 15:30 → UNDODISOB 02-07 15:42
PROVIDERS: ADMIT Family Medicine; ATTEND Family Medicine
DX: U07.1 COVID-19 (principal); D64.9 Anemia, unspecified; D25.9 Leiomyoma of uterus, unspecified; E87.6 Hypokalemia; I10 Essential (primary) hypertension; J45.909 Unspecified asthma, uncomplicated; R79.82 Elevated C-reactive protein (CRP); F17.210 Nicotine dependence, cigarettes, uncomplicated; Z79.51 Long term (current) use of inhaled steroids
CPT/HCPCS: 36430; 72192; 74177; 76830; 76856; 80048; 80053; 82728; 83540; 83550; 85007; 85014; 85018; 85025 ×2; 85027 ×2; 85045; 85055; 85379 ×2; 86141; 86850; 86900; 86901; 86920; 87636; 93970; 96361 ×2; 96372 ×2; 96374; 99284; G0378; P9016; 36415

== ENCOUNTER 2023-05-07 11:58 | Emergency (ER) | payer SELFPAY ==
[~2023-05-07] VITALS: Ht 170.1 cm; Wt 106.5 kg
[2023-05-07] VITALS (7 sets, daily range): BP systolic 115–135; BP diastolic 54–77
[~2023-05-07 11:58] MED LIST changes: +ALBU8.5H6 IH; +ALBU8.5H9 IH; +DEXA6TAB PO; +FAMO20TA5 PO; +MIRT-118 PO; -MIRT15TA3 PO; -RT-ALBUINH IH
--- NOTE | 2023-05-07 12:11 | ED Cough/URI ---
General Chief Complaint: Respiratory Problems Stated Complaint: SOB Source: patient Exam Limitations: no limitations History of Present Illness Date Seen by Provider: May 07, 2023 Time Seen by Provider: 12:11 Initial Comments Patient is a 43-year-old female presents ED with flulike symptoms. Symptoms started 2 days ago with cough, chills body ache low-grade temperature of 101. Has been taken Tylenol. Woke up this morning around 330 having shortness of breath wheezing and chest tightness. Went to the clinic was found to have significant wheezing. Called EMS to bring to the ED for further evaluation. She did receive 1 DuoNeb breathing treatment. She does not have a rescue inhaler at home. She states she has been vomiting with a cough. Denies any diarrhea. Patient is 98% on room air. Notable wheezing throughout. Denies history of coronary artery disease. History of hypertension. Denies any leg swelling. Denies any recent travels or surgeries. Recently moved homes. She denies dysuria, materia, back pain, visual changes, neck pain. Allergies and Home Medications Allergies Coded Allergies: Penicillins (Verified Allergy, Unknown, lip swelling, 03/18/18) Patient Home Medication List Home Medication List Reviewed: Yes Albuterol Sulfate (Proair Hfa) 90 Mcg Hfa.aer.ad, 2 PUFF IH Q4H PRN for SHORTNESS OF BREATH Prescribed by: HAYDEE MEDINA on 02/07/22 1307 Albuterol Sulfate (Ventolin Hfa) 1 Puff Puff, 2 PUFF INH Q4H Prescribed by: DOMINIQUE HAYDEN on 05/07/23 170 Dexamethasone (Dexamethasone) 6 Mg Tablet, 6 MG PO DAILY@0700 Prescribed by: HAYDEE MEDINA on 02/07/22 1307 Doxycycline Monohydrate (Doxycycline Monohydrate) 100 Mg Tablet, 100 MG PO BID Prescribed by: DOMINIQUE HAYDEN on 05/07/23 170 Famotidine (Famotidine) 20 Mg Tablet, 20 MG PO DAILY, (Reported) Entered as Reported by: APOLONIA CEBALLOS on 02/06/22 154 Prednisone (Prednisone) 50 Mg Tab, 50 MG PO DAILY Prescribed by: DOMINIQUE HAYDEN on 05/07/23 170 Review of Systems Review of Systems Constitutional: chills, fever, malaise, weakness EENTM: No ear pain, No blurred vision Respiratory: cough, dyspnea on exertion Cardiovascular: No chest pain, No edema Gastrointestinal: No abdominal pain, No nausea, No vomiting Genitourinary: No decreased output Musculoskeletal: No back pain, No joint pain Skin: No change in color, No change in hair/nails All Other Systems Reviewed Negative Unless Noted: Yes Past [place]-Amsilf-Ycdkvv Hx Patient Social History Tobacco Use?: No Substance use?: Yes Substance type: Marijuana Alcohol Use?: No Immunizations Up To Date PED Vaccines UTD: Yes Seasonal Allergies Seasonal Allergies: Yes Past Medical History Surgery/Hospitalization HX: ASTHMA, DIVERTICULITIS, GALLBLADDER, HTN Surgeries: Yes Abdominal, Gallbladder Respiratory: Yes Asthma Currently Using CPAP: No Currently Using BIPAP: No Cardiac: Yes Hypertension Neurological: No Female Reproductive Disorders: Denies Genitourinary: Yes Kidney Stones Gastrointestinal: Yes (HIATAL HERNIA REPAIRED) Diverticulosis, Hiatal Hernia Musculoskeletal: Yes Fractures Endocrine: No (OBESITY) HEENT: No Cancer: No Psychosocial: No Anxiety Integumentary: No Blood Disorders: Yes (SICKLE CELL TRAIT) Family Medical History Alzheimer's disease MATERNAL GRANDMOTHER Diabetes mellitus 19 FATHER Hypertension 19 FATHER 19 MOTHER Myocardial infarction 19 MOTHER Neoplasm PATERNAL GRANDMOTHER (COLON CANCER) Heart Disease, CAD Under 55 Years Old, Diabetes, Hypertension, Psychiatric Problems, Other Conditions/Hx Physical Exam Vital Signs - First Documented 05/07/23 05/07/23 05/07/23 12:04 13:00 14:30 Temp 37.5 Pulse 95 Resp 25 B/P (MAP) 134/68 (90) Pulse Ox 95 O2 Delivery Room Air O2 Flow Rate 2.00 Capillary Refill : Height: 5'7.00" Weight: 285lbs. 7.0oz. 129.143199rb; 40.13 BMI Method:Stated General Appearance: WD/WN, no apparent distress Eyes: Bilateral Eye Normal Inspection, Bilateral Eye PERRL, Bilateral Eye EOMI HEENT: PERRL/EOMI, normal ENT inspection, TMs normal, pharynx normal Neck: non-tender, full range of motion, supple Respiratory: chest non-tender, normal breath sounds, no respiratory distress, no accessory muscle use, wheezing Cardiovascular: regular rate, rhythm, no edema, no gallop, no JVD Gastrointestinal: normal bowel sounds, non tender, soft, no organomegaly Extremities: normal range of motion, non-tender, normal inspection 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 tested, no motor/sensory deficits, alert, normal mood/affect, oriented x 3 Skin: normal color, warm/dry Progress/Results/Core Measures Suspected Sepsis SIRS Temperature: Pulse: Respiratory Rate: Laboratory Tests 05/07/23 12:25: White Blood Count 8.6 Blood Pressure / Mean: Laboratory Tests 05/07/23 12:25: Creatinine 0.75, INR Comment 1.0, Platelet Count 350, Total Bilirubin 0.5 Results/Orders Lab Results Laboratory Tests Test 05/07/23 12:06 05/07/23 12:25 05/07/23 16:24 Range/Units Influenza Type A (RT-PCR) Not Detected Not Detecte Influenza Type B (RT-PCR) Not Detected Not Detecte SARS-CoV-2 RNA (RT-PCR) Not Detected Not Detecte White Blood Count 8.6 4.3-11.0 10^3/uL Red Blood Count 4.55 3.80-5.11 10^6/uL Hemoglobin 6.6 *L 7.4 L 11.5-16.0 g/dL Hematocrit 25 L 28 L 35-52 % Mean Corpuscular Volume 56 L 80-99 fL Mean Corpuscular Hemoglobin 15 L 25-34 pg Mean Corpuscular Hemoglobin Concent 26 L 32-36 g/dL Red Cell Distribution Width 24.0 H 10.0-14.5 % Platelet Count 350 130-400 10^3/uL Mean Platelet Volume 9.0-12.2 fL Immature Granulocyte % (Auto) 0 % Neutrophils (%) (Auto) 78 H 42-75 % Lymphocytes (%) (Auto) 11 L 12-44 % Monocytes (%) (Auto) 6 0-12 % Eosinophils (%) (Auto) 4 0-10 % Basophils (%) (Auto) 0 0-10 % Neutrophils # (Auto) 6.7 1.8-7.8 10^3/uL Lymphocytes # (Auto) 0.9 L 1.0-4.0 10^3/uL Monocytes # (Auto) 0.5 0.0-1.0 10^3/uL Eosinophils # (Auto) 0.4 H 0.0-0.3 10^3/uL Basophils # (Auto) 0.0 0.0-0.1 10^3/uL Immature Granulocyte # (Auto) 0.0 0.0-0.1 10^3/uL Percent Immature Platelet Fraction 6.1 0.0-7.6 % Absolute Reticulocyte Count 62 24-90 10e9/uL Percent Reticulocyte Count 1.37 0.50-2.40 % Prothrombin Time 13.5 12.2-14.7 SEC INR Comment 1.0 0.8-1.4 Activated Partial Thromboplast Time 29 24-35 SEC Sodium Level 138 135-145 MMOL/L Potassium Level 3.3 L 3.6-5.0 MMOL/L Chloride Level 106 98-107 MMOL/L Carbon Dioxide Level 23 21-32 MMOL/L Anion Gap 9 5-14 MMOL/L Blood Urea Nitrogen 5 L 7-18 MG/DL Creatinine 0.75 0.60-1.30 MG/DL Estimat Glomerular Filtration Rate 101 BUN/Creatinine Ratio 7 Glucose Level 104 70-105 MG/DL Calcium Level 8.6 8.5-10.1 MG/DL Corrected Calcium 8.6 8.5-10.1 MG/DL Total Bilirubin 0.5 0.1-1.0 MG/DL Aspartate Amino Transf (AST/SGOT) 14 5-34 U/L Alanine Aminotransferase (ALT/SGPT) 10 0-55 U/L Alkaline Phosphatase 67 40-136 U/L C-Reactive Protein High Sensitivity 1.78 H 0.00-0.50 MG/DL Total Protein 8.0 6.4-8.2 GM/DL Albumin 4.0 3.2-4.5 GM/DL My Orders Orders - GENOVEVA RAGLAND PA Cbc And Automated Diff (05/07/23 12:09) Comprehensive Metabolic Panel (05/07/23 12:09) Chest 1 View, Ap/Pa Only (05/07/23 12:09) Covid 19 Inhouse Test (05/07/23 12:09) Influenza A And B By Pcr (05/07/23 12:09) Hs C Reactive Protein (05/07/23 12:09) Methylprednisolone Sod Succ (Methylpredn (05/07/23 12:15) Albuterol Pre-Mix Nebs (Rt) (Albuterol (05/07/23 12:15) Svn Small Volume Nebulizer (05/07/23 12:09) Type And Screen (05/07/23 12:40) Red Cells Leukocytes Reduced (05/07/23 12:40) Reticulocyte Count (05/07/23 12:42) Partial Thromboplastin Time (05/07/23 12:43) Protime With Inr (05/07/23 12:43) Ceftriaxone Iv/Im (Ceftriaxone Iv/Im) (05/07/23 12:45) Iron Tibc %Sat & Ferritin (05/07/23 14:00) Vitamin B 12 (05/07/23 14:00) Folic Acid (05/07/23 14:00) Ns Iv 1000 Ml (Ns Iv 1000 Ml) (05/07/23 14:01) Acetaminophen Tablet (Acetaminophen Ta (05/07/23 14:15) Hemoglobin And Hematocrit (05/07/23 16:22) Medications Given in ED Current Medications Medications Dose Ordered Sig/Mir Route Start Time Stop Time Status Last Admin Dose Admin Acetaminophen 650 mg ONCE ONCE PO 05/07/23 14:15 05/07/23 14:16 DC 05/07/23 14:07 650 MG Albuterol Sulfate 20 mg ONCE ONCE INH 05/07/23 12:15 05/07/23 12:16 DC 05/07/23 12:22 20 MG Methylprednisolone Sodium Succinate 125 mg ONCE ONCE IVP 05/07/23 12:15 05/07/23 12:16 DC 05/07/23 12:35 125 MG Vital Signs/I&O 05/07/23 05/07/23 05/07/23 05/07/23 12:04 12:23 13:00 14:07 Temp 37.5 38.0 Pulse 95 B/P (MAP) 134/68 (90) Pulse Ox 95 92 O2 Delivery Room Air Room Air Nasal Cannula O2 Flow Rate 2.00 05/07/23 05/07/23 05/07/23 05/07/23 14:30 14:35 14:40 14:45 Temp 37.6 37.5 37.7 37.5 Pulse 96 95 100 95 Resp B/P (MAP) 124/56 115/54 127/77 118/60 Pulse Ox 95 98 96 97 O2 Delivery Nasal Cannula Nasal Cannula Nasal Cannula Nasal Cannula O2 Flow Rate 2.00 2.00 2.00 2.00 05/07/23 05/07/23 05/07/23 14:49 16:14 17:06 Temp 37.2 37.1 Pulse 92 92 102 Resp 23 24 B/P (MAP) 119/76 135/72 120/64 Pulse Ox 97 98 97 O2 Delivery Nasal Cannula Room Air Room Air O2 Flow Rate 2.00 Capillary Refill : Departure Communication (PCP) Patient is a 43-year-old female with a history of anemia iron deficiency, asthma, sickle cell trait who presents to the ED from [facility] for asthma exacerbation. She started having a cough and flulike symptoms 2 days prior. She does not have a rescue inhaler. She does smoke marijuana. No known cardiac history but has a history of hypertension. She was wheezy throughout. She is currently 93% on room air. She was put on 2 L for comfort measures by EMS. Generalized work-up was initiated with chest x-ray. Differential diagnosis, asthma exacerbation, pneumonia, viral syndrome. COVID influenza was ordered which were negative. CBC showed normal white blood count. Hemoglobin 6.6, hematocrit 25. Did add folate, iron, edgar B12. Type and screen was ordered. Chemistry grossly unremarkable besides a potassium of 3.3. Normal coags. Normal platelet. Chest x-ray was negative for pneumonia. She did receive 1 DuoNeb breathing treatment in route. Was started on a hour-long albuterol nebulizer treatment. She received IV Solu-Medrol. Patient received 1 unit of blood. She just recently finished her menstrual cycle with heavy vaginal bleeding. After reviewing patient's history she does have a history of heavy bleeding and a history of iron deficiency anemia. No current vaginal bleeding at this time. She denies of any dark tarry stools. Suggest Hemoccult test which she did refuse. Observe patient while she received her blood product. Rechecked her hemoglobin with improvement to 7.4. This should continue improving. Normal retic count. Patient was observed no evidence of reaction. Patient is feeling much better at this time. Lung sounds significantly improved. Concern for asthma exacerbation. Will discharge with short burst steroids rescue inhaler. We will provide doxycycline prophylactically. Recommend following up with your PCP 2 days for reevaluation of your lab work. If any worsening symptoms such as weakness fatigue dark tarry stools return back to ED. she did develop a low-grade temperature and did receive a dose of Tylenol. She likely has an underlying viral infection. Oxygen 97% on room air. Not concern for cardiac etiology. Impression Primary Impression: Asthma exacerbation Additional Impression: Anemia Disposition: 01 HOME, SELF-CARE Condition: Stable Departure-Patient Inst. Decision time for Depature: 17:03 Referrals: [facility] (PCP/Family) Primary Care Physician Patient Instructions: Asthma, Adult (DC) Add. Discharge Instructions: Need to follow-up with your primary care physician in 2 days for recheck with hemoglobin. If any worsening symptoms to return back to ED All discharge instructions reviewed with patient and/or family. Voiced understanding. Scripts Doxycycline Monohydrate (Doxycycline Monohydrate) 100 Mg Tablet 100 MG PO BID for 7 Days, #14 TAB Prov: GENOVEVA RAGLAND 05/07/23 Prednisone (Prednisone) 50 Mg Tab 50 MG PO DAILY for 5 Days, #5 TAB Prov: GENOVEVA RAGLAND 05/07/23 Albuterol Sulfate (VENTOLIN HFA) 1 Puff Puff 2 PUFF INH Q4H, #1 EA 1 PUFF = 90 MCG Prov: GENOVEVA RAGLAND 05/07/23 GENOVEVA RAGLAND May 07, 2023 12:11
[2023-05-07] MEDS ORDERED: RT-ALBUTEROL SULF 2.5 MG/3 ML PRE-MIX VIAL INH ONE (12:15)
[2023-05-07] MEDS ORDERED: methylPREDNISolone INJ 125 MG VIAL IVP ONE (12:15)
[2023-05-07 12:32] LABS: BASOPHILS % (AUTO) 0 % (0-10); MEAN CORPUSCULAR HEMOGLOBIN 15 pg (25-34)
[2023-05-07 12:34] LABS: EOSINOPHILS # (AUTO) 0.4 10^3/uL (0.0-0.3); EOSINOPHILS % (AUTO) 4 % (0-10); HEMATOCRIT 25 % (35-52); LYMPHOCYTES # (AUTO) 0.9 10^3/uL (1.0-4.0); LYMPHOCYTES % (AUTO) 11 % (12-44); MEAN CORPUSCULAR HGB CONC 26 g/dL (32-36); MEAN CORPUSCULAR VOLUME 56 fL (80-99); MONOCYTES # (AUTO) 0.5 10^3/uL (0.0-1.0); MONOCYTES % (AUTO) 6 % (0-12); NEUTROPHILS # (AUTO) 6.7 10^3/uL (1.8-7.8); NEUTROPHILS % (AUTO) 78 % (42-75); PLATELET COUNT 350 10^3/uL (130-400); WHITE BLOOD COUNT 8.6 10^3/uL (4.3-11.0)
[2023-05-07 12:35] LABS: HEMOGLOBIN 6.6 g/dL (11.5-16.0)
[2023-05-07 12:44] LABS: POTASSIUM 3.3 MMOL/L (3.6-5.0)
[2023-05-07] MEDS ORDERED: cefTRIAXone IV/IM 1,000 MG in NS (IVPB) 50 ML 50 ML IV STA (12:45)
[2023-05-07 12:46] LABS: CALCIUM 8.6 MG/DL (8.5-10.1)
[2023-05-07 12:49] LABS: BILIRUBIN,TOTAL 0.5 MG/DL (0.1-1.0)
[2023-05-07 12:51] LABS: CREATININE SERUM 0.75 MG/DL (0.60-1.30); RETICULOCYTE % 1.37 % (0.50-2.40)
[2023-05-07 12:55] LABS: PROTHROMBIN TIME PATIENT 13.5 SEC (12.2-14.7)
--- NOTE | 2023-05-07 12:56 | Diagnostic Imaging Report ---
EXAMINATION: Chest 1 view HISTORY: cough COMPARISON: 12/02/2020 FINDINGS: The lungs are clear without edema or pneumonia. No pleural effusion or pneumothorax. Heart size is normal. IMPRESSION: 1. Clear lungs. Dictated by: Dictated on workstation # [id number]
[2023-05-07] MEDS ORDERED: NS IV 1000 ML 1,000 ML IV STA (14:01)
[2023-05-07] MEDS ORDERED: ACETAMINOPHEN 325 MG TABLET PO ONE (14:15)
[2023-05-07 16:34] LABS: HEMOGLOBIN 7.4 g/dL (11.5-16.0)
[2023-05-07] MEDS ORDERED: PRD50T PO (17:03)
[2023-05-07] MEDS ORDERED: RT-ALBUINH INH (17:03)
[2023-05-07] MEDS ORDERED: DOXY100T31 PO (17:03)
== END 2023-05-07 17:09 | disposition home or self-care (01) ==
LOC: EDUNIT# 11:58 → ER 11:59
DX: J45.901 Unspecified asthma with (acute) exacerbation (principal); D50.9 Iron deficiency anemia, unspecified; E66.9 Obesity, unspecified; Z68.41 Body mass index [BMI] 40.0-44.9, adult; Z20.822 Contact with and (suspected) exposure to COVID-19
CPT/HCPCS: 36430; 71045; 80053; 82607; 82728; 82746; 83540; 83550; 85014; 85018; 85025; 85045; 85610; 85730; 86141; 86850; 86900; 86901; 86920; 87636; 94640; 99285; P9016; 36415